=== PATIENT | male | born 1960 | race Two or more races ===

== ENCOUNTER 2020-05-19 08:06 | Outpatient (REF) | payer OTHER, SELFPAY ==
[2020-05-19 08:43] LABS: MANUAL DIFF FLAG NO
[2020-05-19 08:46] LABS: Basophils Percent Auto 0.3 % (0-2); Eosinophils Absolute Auto 0.3 X10*3/uL (0.0-0.4); Eosinophils Percent Auto 2.9 % (0-4); Hematocrit 48.7 % (42-52); Hemoglobin 15.8 g/dl (14.0-18.0); Imm Gran Abs Auto 0.03 X10*3/uL (0.00-0.03); Imm Gran Pct Auto 0.3 % (0.0-0.4); Lymphocytes Absolute Auto 2.5 X10*3/uL (1.2-4.9); Lymphocytes Percent Auto 28.8 % (20-40); Mean Corpuscular HGB Conc 32.4 g/dl (31.0-36.0); Mean Corpuscular Hemoglobin 26.4 pg (27.0-33.0); Mean Corpuscular Volume 81.3 fL (80-98); Mean Platelet Volume 12.1 fL (9.4-12.4); Monocytes Absolute Auto 0.6 X10*3/uL (0.1-1.2); Monocytes Percent Auto 7.2 % (2-11); Neutrophils Absolute Auto 5.2 X10*3/uL (2.0-8.3); Neutrophils Percent Auto 60.5 % (45-73); Platelet Count 218 X10*3/uL (160-400); Red Blood Count 5.99 X10*6/uL (4.60-5.80); Red Cell Distribution Width 13.8 % (11.0-16.0); White Blood Count 8.7 X10*3/uL (4.8-10.8)
[2020-05-19 09:13] LABS: Alanine Aminotransferase 28 U/L (0-40); Albumin Level 4.2 g/dL (3.5-5.0); Alkaline Phosphatase 104 U/L (39-117); Anion Gap 12 (12-20); Aspartate Amino Transferase 15 U/L (5-37); Bilirubin Total 1.7 mg/dL (0.0-1.0); Blood Urea Nitrogen 13 mg/dL (9-16); Calcium 9.2 mg/dL (8.4-10.2); Carbon Dioxide 29 mmol/L (22-29); Chloride 101 mmol/L (96-108); Cholesterol 298 mg/dL; Estimated Glomerular Filt Rate > 60; Glucose Fasting 146 mg/dL (60-99); HDL Cholesterol 32 mg/dL; LDL Cholesterol Calculated 234 mg/dl; Sodium 138 mmol/L (135-145); Total Protein 7.1 g/dL (6.5-8.0); Triglycerides 164 mg/dL
[2020-05-19 09:32] LABS: Creatinine Urine 123.35 mg/dL
== END 2020-05-19 08:07 | disposition home or self-care (01) ==
LOC: HO.LAB 08:06
PROVIDERS: PCP Internal Medicine; Visit Provider Internal Medicine
DX: E78.00 Pure hypercholesterolemia, unspecified (principal); R80.9 Proteinuria, unspecified; E11.69 Type 2 diabetes mellitus with other specified complication; K21.9 Gastro-esophageal reflux disease without esophagitis
CPT/HCPCS: 36415; 80053; 80061; 82043; 85025

== ENCOUNTER → 2020-07-26 09:02 | Outpatient (BNVA) | payer OTHER, SELFPAY | PROVIDERS: PCP Internal Medicine; Visit Provider Physician Assistant | DX: Z13.89 Encounter for screening for other disorder (principal) | CPT/HCPCS: Q3014 ==

== ENCOUNTER 2020-09-16 08:33 | Outpatient (REF) | payer OTHER, SELFPAY ==
[2020-09-16 10:10] LABS: Alanine Aminotransferase 26 U/L (0-40); Albumin Level 4.2 g/dL (3.5-5.0); Alkaline Phosphatase 95 U/L (39-117); Anion Gap 11 (12-20); Aspartate Amino Transferase 14 U/L (5-37); Bilirubin Total 1.4 mg/dL (0.0-1.0); Blood Urea Nitrogen 12 mg/dL (9-16); Calcium 9.3 mg/dL (8.4-10.2); Carbon Dioxide 28 mmol/L (22-29); Chloride 103 mmol/L (96-108); Cholesterol 288 mg/dL; Estimated Glomerular Filt Rate > 60; Glucose Fasting 162 mg/dL (60-99); HDL Cholesterol 31 mg/dL; LDL Cholesterol Calculated 229 mg/dl; Lactate Dehydrogenase 134 U/L (118-273); Potassium 4.1 mmol/L (3.3-5.1); Sodium 138 mmol/L (135-145); Total Protein 6.9 g/dL (6.5-8.0); Triglycerides 144 mg/dL
[2020-09-16 10:15] LABS: Microalbum/Creatinine Ratio Ur 24.6 ug/mg cr
== END 2020-09-16 08:34 | disposition home or self-care (01) ==
LOC: HO.LAB 08:33
PROVIDERS: PCP Internal Medicine; Visit Provider Internal Medicine
DX: E11.29 Type 2 diabetes mellitus with other diabetic kidney complication (principal); R80.9 Proteinuria, unspecified; E80.6 Other disorders of bilirubin metabolism; E78.2 Mixed hyperlipidemia
CPT/HCPCS: 36415; 80053; 80061; 82043; 83615

== ENCOUNTER → 2020-09-20 07:35 | Outpatient (BNVA) | payer OTHER, SELFPAY | PROVIDERS: PCP Internal Medicine; Visit Provider Physician Assistant | DX: K76.0 Fatty (change of) liver, not elsewhere classified (principal) | CPT/HCPCS: 99212 ==

== ENCOUNTER 2021-01-16 09:16 | Outpatient (REF) | payer OTHER, SELFPAY ==
[2021-01-16 10:49] LABS: Alanine Aminotransferase 25 U/L (0-40); Albumin Level 4.3 g/dL (3.5-5.0); Alkaline Phosphatase 99 U/L (39-117); Anion Gap 11 (12-20); Aspartate Amino Transferase 14 U/L (5-37); Bilirubin Total 0.9 mg/dL (0.0-1.0); Blood Urea Nitrogen 10 mg/dL (9-16); Calcium 9.7 mg/dL (8.4-10.2); Carbon Dioxide 30 mmol/L (22-29); Chloride 102 mmol/L (96-108); Cholesterol 282 mg/dL; Estimated Glomerular Filt Rate > 60; Glucose Fasting 163 mg/dL (60-99); HDL Cholesterol 32 mg/dL; LDL Cholesterol Calculated 224 mg/dl; Potassium 4.5 mmol/L (3.3-5.1); Sodium 138 mmol/L (135-145); Total Protein 7.3 g/dL (6.5-8.0); Triglycerides 134 mg/dL
[2021-01-16 10:50] LABS: Creatinine Urine 15.36 mg/dL
[2021-01-16 11:10] LABS: HBsAGNum1 0.19 S/CO (0.00-0.99); Hepatitis B Core Antibody Nonreactive (Nonreactive); Hepatitis B Surface Antigen Negative (Negative); ~HepC Num1 0.17 S/CO (0.00-0.79); ~Hepatitis C Antibody Nonreactive (Nonreactive)
[2021-01-16 11:21] LABS: ~Hepatitis B Surface Antibody NONREACTIVE (Nonreactive)
[2021-01-17 09:31] LABS: Hepatitis A Antibody IgM 0.15 Index (0-0.79); ~Hepatitis A Antibody IgM Nonreactive (Nonreactive)
== END 2021-01-16 09:17 | disposition home or self-care (01) ==
LOC: HO.LAB 09:16
PROVIDERS: Physician Assistant; PCP Internal Medicine; Visit Provider Internal Medicine
DX: Z01.84 Encounter for antibody response examination (principal); Z11.59 Encounter for screening for other viral diseases; R79.89 Other specified abnormal findings of blood chemistry; E78.2 Mixed hyperlipidemia; E78.5 Hyperlipidemia, unspecified; E11.29 Type 2 diabetes mellitus with other diabetic kidney complication; R80.9 Proteinuria, unspecified
CPT/HCPCS: 36415; 80053; 80061; 82043; 86704; 86706; 86709; 86803; 87340

== ENCOUNTER 2021-02-17 17:55 | Emergency (ER) | payer OTHER, SELFPAY ==
--- NOTE | 2021-02-17 | ECG_ITS ---
Test Reason : CHEST PAIN Blood Pressure : / mmHG Vent. Rate : 053 BPM Atrial Rate : 053 BPM P-R Int : 148 ms QRS Dur : 088 ms QT Int : 406 ms P-R-T Axes : 053 -41 -14 degrees QTc Int : 380 ms Sinus bradycardia Left axis deviation Abnormal ECG When compared with ECG of 09-APR-2019 13:18, No significant change was found Referred By: Generic ED Physician Electronically Signed By:ROSALIND BRANNON
--- NOTE | ~2021-02-17 | XR_ITS ---
EXAMINATION: XR CHEST CLINICAL INFORMATION: Chest pain COMPARISON: None TECHNIQUE: Frontal view of the chest was obtained. FINDINGS: No significant abnormality is noted involving the heart, lungs, mediastinum, bony thorax or soft tissues. XR/XR chest 1V IMPRESSION: Unremarkable examination.
[2021-02-17 18:00] VITALS: BP 200/108; PULSE 58; RESP 16; TEMP 36.7; O2SAT 98; BMI 28.3
[2021-02-17 19:08] LABS: MANUAL DIFF FLAG NO
[2021-02-17 19:10] LABS: Basophils Percent Auto 0.2 % (0-2); Eosinophils Absolute Auto 0.2 X10*3/uL (0.0-0.4); Hematocrit 46.8 % (42-52); Hemoglobin 15.1 g/dl (14.0-18.0); Imm Gran Abs Auto 0.02 X10*3/uL (0.00-0.03); Imm Gran Pct Auto 0.2 % (0.0-0.4); Lymphocytes Absolute Auto 2.5 X10*3/uL (1.2-4.9); Lymphocytes Percent Auto 25.1 % (20-40); Mean Corpuscular HGB Conc 32.3 g/dl (31.0-36.0); Mean Corpuscular Hemoglobin 26.2 pg (27.0-33.0); Mean Corpuscular Volume 81.1 fL (80-98); Mean Platelet Volume 11.9 fL (9.4-12.4); Monocytes Absolute Auto 0.7 X10*3/uL (0.1-1.2); Monocytes Percent Auto 7.3 % (2-11); Neutrophils Absolute Auto 6.4 X10*3/uL (2.0-8.3); Neutrophils Percent Auto 65.2 % (45-73); Platelet Count 198 X10*3/uL (160-400); Red Blood Count 5.77 X10*6/uL (4.60-5.80); Red Cell Distribution Width 14.6 % (11.0-16.0); White Blood Count 9.8 X10*3/uL (4.8-10.8)
--- NOTE | 2021-02-17 19:37 | ED.GENADULT ---
HPI - General Adult General Chief complaint: Dizziness Stated complaint: HBP Time Seen by Provider: 02/17/21 19:26 Source: patient Mode of arrival: ambulatory Limitations: no limitations History of Present Illness HPI narrative: 60-year-old male who presents emergency department for evaluation of dizziness and chest pain. Patient states that he has a history of vertigo. The patient states that he was sitting at around 5:30 p.m. when he had a sudden onset of dizziness. He states that the room was spinning any had blurred vision. He states this is similar to his vertigo he has taken meclizine in the past but did not take any this evening. He states he then developed pain in his chest. He points to his mid sternal area when asked to localize the pain. He describes the pain as a pressure-like pain. The pain lasts approximately 1 hour. Patient states he has had similar pain in the past and states that he gets it several times a month. He denied associated nausea, vomiting, diaphoresis lightheadedness. He denied radiation of the pain to his neck, arms or back. Related Data Home Medications Medication Instructions Recorded Confirmed aspirin 81 mg chewable tablet 1 tab PO DAILY 05/22/20 01/18/21 losartan 25 mg tablet 25 mg PO DAILY 05/22/20 01/18/21 pantoprazole 40 mg tablet,delayed 40 mg PO DAILY 05/22/20 01/18/21 release Previous Rx's Medication Instructions Recorded atorvastatin 80 mg tablet 80 mg PO DAILY 90 Days #90 tab 08/17/20 metformin 1,000 mg tablet 1,000 mg PO BID 90 Days #180 tab 08/17/20 amlodipine 10 mg tablet 10 mg PO DAILY 90 Days #90 tab 09/01/20 ezetimibe 10 mg tablet 10 mg PO DAILY 90 Days #90 tab 09/18/20 evolocumab 140 mg/mL subcutaneous 140 mg SUBCUT Q2W 30 Days #3 ml 01/18/21 pen injector (Ruby Vang) meclizine 12.5 mg tablet 12.5 mg PO TID PRN 30 Days #90 tab 01/18/21 pioglitazone 30 mg tablet 30 mg PO DAILY 90 Days #90 tab 01/18/21 meclizine 25 mg tablet (Dramamine 25 mg PO TID PRN #20 tab 02/17/21 Less Drowsy) Allergies Allergy/AdvReac Type Severity Reaction Status Date / Time vitamin c lotion Allergy Intermediate rash Uncoded 02/17/21 18:00 Review of Systems Review of Systems: Yes all other systems are reviewed and are negative [facility] Past Medical History Medical History BPPV (benign paroxysmal positional vertigo) Diabetes mellitus Essential hypertension Familial hypercholesterolemia GERD (gastroesophageal reflux disease) Hyperbilirubinemia NAFLD (nonalcoholic fatty liver disease) Surgical History History of cardiac catheterization Family History Family History Father No problems noted. 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 Current occupational exposures/hazards: No Physical Exam Vital Signs: Vital Signs: Last Vital Signs Temp 98.3 F 02/17/21 20:00 Pulse 55 02/17/21 20:00 Resp 18 02/17/21 20:00 BP 192/115 H 02/17/21 20:00 Pulse Ox 97 02/17/21 20:00 Body Mass Index 28.3 Const: General: cooperative and no acute distress Orientation/consciousness: oriented to person and oriented to place Limitations: no limitations HENMT: Head: Yes normal to inspection, Yes normocephalic and Yes atraumatic Ears: external ears normal General nose exam: Normal external nose present Face and sinus: Yes normal facial exam Mouth: Normal oral and palatal mucosa present Throat: Yes posterior oropharynx normal Eyes: General: appearance normal, both eyes and all related structures Pupils: Equal, round and reactive pupils present Neck: Neck: Yes normal visual inspection, Yes no lymphadenopathy, Yes trachea midline and Yes supple Chest: Chest palpation & inspection: normal inspection of the chest and normal palpation of entire chest wall Resp: Effort & Inspection: normal respiratory effort and able to speak in complete sentences Auscultation: clear to auscultation bilaterally Cardio: Rate: regular rate Rhythm: regular rhythm Heart sounds: S1 normal heart sound present, S2 normal heart sound present and no murmurs GI: Inspection: Yes normal to inspection Palpation (GI): Soft to palpation, nontender and no guarding Auscultation: normal bowel sounds : General: Yes no CVA tenderness Back/Spine/Pelvis: Back: no CVA tenderness Skin: General skin exam: no rashes or lesions noted Neuro: General: oriented to person and oriented to place Cranial nerves: Yes CN's II-XII intact bilaterally and Yes Equal, round and reactive pupils present Cognition (Neuro): normal cognition Motor exam (neuro): 5/5 motor strength present throughout Extrem: General: Yes normal to inspection Psych: Appearance: grossly normal Speech and movement: Normal speech and movement present Affect: normal affect Attitude: cooperative Thought process: Normal thought process present Thought content: Normal thought content present Course Course Course Narrative: 60-year-old male who presents emergency department for evaluation of vertigo-like dizziness and substernal chest pressure. The patient has had both symptoms in the past. The patient's chest pressure lasted 1 hour. The patient's physical examination was unremarkable. The patient's 12 lead EKG was unremarkable with no evidence of ST segment elevation or depression. Laboratory evaluation is pending. 2038: The patient's high sensitivity troponin was detectable but not elevated. Given his presentation, I do not think that he needs a repeat 3 hour high sensitivity troponin. The patient's presentation is consistent with vertigo. He was treated with meclizine 25 mg orally. The patient was advised to take meclizine 25 mg every 6 hours as needed for dizziness. Patient was discharged home. The patient was given verbal and printed instructions prior to discharge. The patient was advised to follow-up with his PCP in 2 days and to return to the emergency department if his symptoms get worse or if he develops any new symptoms that are concerning to him. Medical Decision Making Lab Data Result diagrams: 02/17/21 19:03 02/17/21 19:47 Labs: Lab Results 02/17/21 02/17/21 02/17/21 Range/Units 19:03 19:03 19:47 WBC 9.8 (4.8-10.8) X10*3/uL RBC 5.77 (4.60-5.80) X10*6/uL Hgb 15.1 (14.0-18.0) g/dl Hct 46.8 (42-52) % MCV 81.1 (80-98) fL MCH 26.2 L (27.0-33.0) pg MCHC 32.3 (31.0-36.0) g/dl RDW 14.6 (11.0-16.0) % Plt Count 198 (160-400) X10*3/uL MPV 11.9 (9.4-12.4) fL Immature Gran % (Auto) 0.2 (0.0-0.4) % Neut % (Auto) 65.2 (45-73) % Lymph % (Auto) 25.1 (20-40) % [place] % (Auto) 7.3 (2-11) % Eos % (Auto) 2.0 (0-4) % Baso % (Auto) 0.2 (0-2) % Lymph # (Auto) 2.5 (1.2-4.9) X10*3/uL [place] # (Auto) 0.7 (0.1-1.2) X10*3/uL Eos # (Auto) 0.2 (0.0-0.4) X10*3/uL Baso # (Auto) 0.0 (0.0-0.2) X10*3/uL Abs Immat Gran (auto) 0.02 (0.00-0.03) X10*3/uL Absolute Neuts (auto) 6.4 (2.0-8.3) X10*3/uL Absolute Nucleated RBC 0.000 (0.0-0.012) X10*3/uL Nucleated RBC % (auto) 0.0 (0.0-0.2) /100WBC Sodium 138 (135-145) mmol/L Potassium 3.8 (3.3-5.1) mmol/L Chloride 102 (96-108) mmol/L Carbon Dioxide 29 (22-29) mmol/L Anion Gap 11 L (12-20) BUN 14 (9-16) mg/dL Creatinine 1.01 (0.5-1.4) mg/dL Estim Creat Clear Calc 72.6 Estimated GFR > 60 Random Glucose 198 H (60-115) mg/dL Calcium 9.6 (8.4-10.2) mg/dL Troponin I High Sens 4.3 (<3.5-35.0) ng/L ECG Data Attestation: I personally reviewed and interpreted this ECG as follows: Interpretation: 1808: Sinus bradycardia with a rate of 53, normal MS interval, QRS duration and QTC interval, inverted T-wave in lead 3, no ST segment elevation, no ST segment depression, no PACs, no PVCs, except for the bradycardia, this is a normal EKG. Discharge Plan Discharge Clinical Impression: Vertigo Chest pain Qualifiers: Chest pain type: unspecified Qualified Code(s): R07.9 - Chest pain, unspecified Patient Disposition: Home, Self-Care Instructions: Vertigo (ED), Chest Wall Pain (ED) Additional Instructions: Your laboratory evaluation was unremarkable. Your symptoms are consistent with vertigo and I think that your chest pain is consistent with muscle pain. Take meclizine 25 mg pills, 1 pill every 6 hours as needed for dizziness or nausea. Follow-up with your doctor in 2 days. Please return to the emergency department if your symptoms get worse or if you develop any symptoms that are concerning to you. Prescriptions: New meclizine [Dramamine Less Drowsy] 25 mg tablet 25 mg PO TID PRN (Reason: dizziness) Qty: 20 RF: 0 No Action metformin 1,000 mg tablet 1,000 mg PO BID 90 Days Qty: 180 RF: 1 atorvastatin 80 mg tablet 80 mg PO DAILY 90 Days Qty: 90 RF: 3 amlodipine 10 mg tablet 10 mg PO DAILY 90 Days Qty: 90 RF: 3 Repatha SureClick 140 mg/mL pen injector 140 mg subcut Q2W 30 Days Qty: 3 RF: 6 ezetimibe 10 mg tablet 10 mg PO DAILY 90 Days Qty: 90 RF: 3 pioglitazone 30 mg tablet 30 mg PO DAILY 90 Days Qty: 90 RF: 3 meclizine 12.5 mg tablet 12.5 mg PO TID PRN (Reason: dizziness) 30 Days Qty: 90 RF: 1 pantoprazole 40 mg tablet,delayed release (DR/EC) 40 mg PO DAILY RF: 0 aspirin 81 mg tablet,chewable 1 tab PO DAILY RF: 0 losartan 25 mg tablet 25 mg PO DAILY RF: 0
[2021-02-17 19:38] LABS: Troponin-I High Sensitivity 4.3 ng/L (<3.5-35.0)
--- NOTE | 2021-02-17 19:39 | PC.NURSE ---
iv inserted, labs drawn, vehicle monitor technician intact, will continue to monitor.
[2021-02-17 20:00] VITALS: BP 192/115; PULSE 55; RESP 18; TEMP 36.8; O2SAT 97
--- NOTE | 2021-02-17 20:01 | PC.NURSE ---
patient a&ox3, pt hypertensive, currently denying chest pain and denying dizziness at this time, tower erector intact will continue to monitor.
[2021-02-17 20:20] LABS: Anion Gap 11 (12-20); Blood Urea Nitrogen 14 mg/dL (9-16); Calcium 9.6 mg/dL (8.4-10.2); Carbon Dioxide 29 mmol/L (22-29); Chloride 102 mmol/L (96-108); Creatinine Clr Calc Pharmacy 72.6; Estimated Glomerular Filt Rate > 60; Glucose Random 198 mg/dL (60-115); Potassium 3.8 mmol/L (3.3-5.1); Sodium 138 mmol/L (135-145)
[2021-02-17 21:39] VITALS: BP 169/96; PULSE 51; RESP 18; O2SAT 97
[2021-02-17] MEDS: Meclizine HCl 25 MG TABLET PO (21:48)
== END 2021-02-17 21:47 | disposition home or self-care (01) ==
PROVIDERS: Emergency Provider Emergency Medicine Emergency Medical Services; PCP Internal Medicine
DX: R42 Dizziness and giddiness (principal); R07.9 Chest pain, unspecified; I10 Essential (primary) hypertension; E11.9 Type 2 diabetes mellitus without complications; E78.01 Familial hypercholesterolemia; Z79.02 Long term (current) use of antithrombotics/antiplatelets; Z79.82 Long term (current) use of aspirin; Z79.899 Other long term (current) drug therapy
CPT/HCPCS: 36415; 71045; 80048; 84484; 85025; 93005; 99284; 99285

== ENCOUNTER 2021-04-16 10:29 | Outpatient (REF) | payer OTHER, SELFPAY ==
--- NOTE | ~2021-04-16 | XR_ITS ---
EXAMINATION: XR KNEE, RIGHT CLINICAL INFORMATION: M25.561 - Pain in right knee COMPARISON: None TECHNIQUE: Four views of the right knee. FINDINGS: There is no fracture or dislocation or suprapatellar effusion. Hoffa's fat pad appears normal. There is no focal joint narrowing or erosive change or chondrocalcinosis. Mild spurring is present at quadriceps insertion patella. XR/XR knee RT 4V IMPRESSION: Spurring at quadriceps insertion patella. Otherwise unremarkable exam.
--- NOTE | ~2021-04-16 | XR_ITS ---
EXAMINATION: XR FOOT, RIGHT CLINICAL INFORMATION: M79.671 - Pain in right foot COMPARISON: None TECHNIQUE: AP, lateral, and oblique views of the right foot. FINDINGS: There is a subtle peripheral lucency at the lateral base great toe proximal phalanx. It is uncertain if this represents a fine linear cleft or cortical avulsion. Recommend correlation with patient's symptoms and clinical exam. The bony structures are otherwise intact. There is no other fracture or dislocation or destructive process. There are posterior and plantar calcaneal spurs. XR/XR foot RT min 3V IMPRESSION: 1. Subtle cleft versus cortical avulsion lateral base great toe proximal phalanx. Recommend correlation with patient's symptoms and clinical exam. 2. Remainder of bony structures intact. 3. Posterior and plantar calcaneal spurs.
== END 2021-04-16 10:30 | disposition home or self-care (01) ==
LOC: HO.HMGCX 10:29
PROVIDERS: PCP Internal Medicine; Visit Provider Physician Assistant
DX: M25.561 Pain in right knee (principal); M79.671 Pain in right foot
CPT/HCPCS: 73564; 73630

== ENCOUNTER 2021-05-26 08:18 | Outpatient (REF) | payer OTHER, SELFPAY ==
[2021-05-26 10:05] LABS: Alanine Aminotransferase 18 U/L (0-40); Albumin Level 4.2 g/dL (3.5-5.0); Alkaline Phosphatase 89 U/L (39-117); Anion Gap 10 (12-20); Aspartate Amino Transferase 13 U/L (5-37); Bilirubin Total 1.5 mg/dL (0.0-1.0); Blood Urea Nitrogen 12 mg/dL (9-16); Carbon Dioxide 31 mmol/L (22-29); Chloride 103 mmol/L (96-108); Cholesterol 269 mg/dL; Estimated Glomerular Filt Rate > 60; Glucose Fasting 127 mg/dL (60-99); HDL Cholesterol 30 mg/dL; LDL Cholesterol Calculated 220 mg/dl; Potassium 4.2 mmol/L (3.3-5.1); Sodium 140 mmol/L (135-145); Total Protein 7.1 g/dL (6.5-8.0); Triglycerides 95 mg/dL
[2021-05-26 12:08] LABS: Creatinine Urine 229.01 mg/dL; Microalbum/Creatinine Ratio Ur 29.2 ug/mg cr
[2021-05-30 12:26] LABS: Vitamin D 25-OH, D2 <4 ng/mL; Vitamin D 25-OH, D3 21 ng/mL; Vitamin D 25-OH, Total 21 ng/mL (30-100)
[2021-05-30 13:01] LABS: Apolipoprotein B 142 mg/dL (<90)
== END 2021-05-26 08:19 | disposition home or self-care (01) ==
LOC: HO.LAB 08:18
PROVIDERS: PCP Internal Medicine; Visit Provider Internal Medicine
DX: E11.29 Type 2 diabetes mellitus with other diabetic kidney complication (principal); R80.9 Proteinuria, unspecified; E78.2 Mixed hyperlipidemia; E78.5 Hyperlipidemia, unspecified; E55.9 Vitamin D deficiency, unspecified
CPT/HCPCS: 36415; 80053; 80061; 82043; 82172; 82306

== ENCOUNTER 2021-05-31 08:49 | Outpatient (REF) | payer OTHER, SELFPAY ==
--- NOTE | 2021-05-31 08:52 | EMG_ITS ---
Right tibial and peroneal motor studies were performed. Right superficial peroneal and sural sensory studies were performed and paraspinal muscles were tested. Due to technical difficulties, H-reflex could not be obtained. 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 MD SIS Mazariegos/DOMINIK / [id number]
== END 2021-05-31 08:50 | disposition home or self-care (01) ==
LOC: HO.NEURO 08:49
PROVIDERS: PCP Internal Medicine; Visit Provider Physician Assistant
DX: G57.30 Lesion of lateral popliteal nerve, unspecified lower limb (principal); M21.371 Foot drop, right foot; E11.29 Type 2 diabetes mellitus with other diabetic kidney complication; R80.9 Proteinuria, unspecified; I10 Essential (primary) hypertension; E78.5 Hyperlipidemia, unspecified; E55.9 Vitamin D deficiency, unspecified; Z23 Encounter for immunization
CPT/HCPCS: 95886; 95908

== ENCOUNTER → 2021-07-09 08:33 | Outpatient (REF) | payer OTHER, SELFPAY | LOC: HO.SL 08:33 | PROVIDERS: PCP Internal Medicine; Visit Provider Internal Medicine | DX: R40.0 Somnolence (principal) | CPT/HCPCS: 95806 ==

== ENCOUNTER 2021-07-18 15:02 | Emergency (ER) | payer OTHER, SELFPAY ==
--- NOTE | ~2021-07-18 | XR_ITS ---
EXAMINATION: XR CHEST CLINICAL INFORMATION: Chest pain COMPARISON: February 17, 2021 TECHNIQUE: AP portable view of the chest was obtained. FINDINGS: No significant abnormality is noted involving the heart, lungs, mediastinum, bony thorax or soft tissues. XR/XR chest 1V IMPRESSION: No acute disease.
[2021-07-18 16:12] VITALS: BP 158/91; PULSE 62; RESP 18; TEMP 36.6; O2SAT 99; BMI 29.2
--- NOTE | 2021-07-18 16:16 | ECG_ITS ---
Test Reason : CHEST PAIN Blood Pressure : / mmHG Vent. Rate : 059 BPM Atrial Rate : 059 BPM P-R Int : 138 ms QRS Dur : 086 ms QT Int : 412 ms P-R-T Axes : 057 -59 012 degrees QTc Int : 407 ms Sinus bradycardia Left axis deviation Pulmonary disease pattern Abnormal ECG When compared with ECG of 17-FEB-2021 18:08, No significant change was found Referred By: Generic ED Physician Electronically Signed By:JP NORTON MD
[2021-07-18 16:31] LABS: Basophils Percent Auto 0.2 % (0-2); Eosinophils Absolute Auto 0.2 X10*3/uL (0.0-0.4); Eosinophils Percent Auto 1.9 % (0-4); Hematocrit 51.5 % (42.0-52.0); Hemoglobin 16.2 g/dl (14.0-18.0); Imm Gran Abs Auto 0.03 X10*3/uL (0.00-0.03); Imm Gran Pct Auto 0.4 % (0.0-0.4); Lymphocytes Percent Auto 22.8 % (20-40); MANUAL DIFF FLAG NO; Mean Corpuscular HGB Conc 31.5 g/dl (31.0-36.0); Mean Corpuscular Hemoglobin 25.8 pg (27.0-33.0); Mean Corpuscular Volume 81.9 fL (80.0-98.0); Mean Platelet Volume 11.8 fL (9.4-12.4); Monocytes Absolute Auto 0.7 X10*3/uL (0.1-1.2); Monocytes Percent Auto 7.7 % (2-11); Neutrophils Absolute Auto 5.7 x10*3/uL (2.0-8.3); Platelet Count 236 X10*3/uL (160-400); Red Blood Count 6.29 X10*6/uL (4.60-5.80); Red Cell Distribution Width 14.3 % (11.0-16.0); White Blood Count 8.6 X10*3/uL (4.8-10.8)
[2021-07-18 16:45] LABS: Anion Gap 15 (12-20); Blood Urea Nitrogen 8 mg/dL (9-16); Calcium 10.4 mg/dL (8.4-10.2); Carbon Dioxide 27 mmol/L (22-29); Chloride 102 mmol/L (96-108); Estimated Glomerular Filt Rate > 60; Glucose Random 122 mg/dL (60-115); Potassium 4.4 mmol/L (3.3-5.1); Sodium 140 mmol/L (135-145)
[2021-07-18 16:47] LABS: COVID-19 Test Negative (Negative)
[2021-07-18 16:53] LABS: Troponin-I High Sensitivity < 3.5 ng/L (<3.5-35.0)
[2021-07-18 20:00] VITALS: BP 158/91; PULSE 62; TEMP 36.6; O2SAT 99
--- NOTE | 2021-07-18 20:04 | ED_ITS ---
HPI - Chest Pain General Chief Complaint: Chest Pain Stated Complaint: high blood pressure Time Seen by Provider: 07/18/21 19:41 Source: patient and old records reviewed History of Present Illness HPI narrative: Patient is complaining of dizziness and chest pain and hypertension. Patient states he has been having these symptoms intermittently for approximately 10 years. The chest pain usually comes when he gets the dizzy episodes. He describes the dizziness as feeling like the room is moving, it is worse with head movement, and he has been diagnosed with vertigo in the past. He typically takes meclizine when he feels this way in the dizziness improved. He has not seen a specialist for this however. He also complains of chest pain when he gets this. It is sharp in anterior. He has been worked up on numerous occasions for cardiac disease when he has had this pain, but the workups have been normal. He has not seen a farmworker machine however. He has a history of hypertension for which he takes amlodipine and losartan. He has been on the same dose for many years. He states he takes his blood pressure at home and typically the lowest it gets is 140/90. At times it is high as 170/100. He denies any focal weakness. No nausea or vomiting. No recent illnesses. No causative factors that he knows of Currently he has no chest pain. He has no dizziness unless he moves his head. Patient states he was seen at [facility] for the same complaints yesterday. Workup there was negative and he was discharged home to follow-up with his primary care physician. But when he called the office today and told him is symptoms they told him to come back to the emergency department. Related Data Home Medications Medication Instructions Recorded Confirmed aspirin 81 mg chewable tablet 1 tab PO DAILY 05/22/20 05/31/21 losartan 25 mg tablet 25 mg PO DAILY 05/22/20 05/31/21 pantoprazole 40 mg tablet,delayed 40 mg PO DAILY 05/22/20 05/31/21 release Previous Rx's Medication Instructions Recorded atorvastatin 80 mg tablet 80 mg PO DAILY 90 Days #90 tab 08/17/20 metformin 1,000 mg tablet 1,000 mg PO BID 90 Days #180 tab 08/17/20 amlodipine 10 mg tablet 10 mg PO DAILY 90 Days #90 tab 09/01/20 ezetimibe 10 mg tablet 10 mg PO DAILY 90 Days #90 tab 09/18/20 pioglitazone 30 mg tablet 30 mg PO DAILY 90 Days #90 tab 01/18/21 meclizine 25 mg tablet (Dramamine 25 mg PO TID PRN #20 tab 02/17/21 Less Drowsy) cholecalciferol (vitamin D3) 50 50 mcg PO DAILY 90 Days #90 cap 05/31/21 mcg (2,000 unit) capsule evolocumab 140 mg/mL subcutaneous 140 mg SUBCUT Q2W 30 Days #3 ml 05/31/21 pen injector (Repatha SureClick) amlodipine 10 mg tablet 20 mg PO DAILY #60 tab 07/18/21 Allergies Allergy/AdvReac Type Severity Reaction Status Date / Time vitamin c lotion Allergy Intermediate rash Uncoded 05/31/21 09:52 Review of Systems 2 Verdana 4l Constitutional: Verdana 4d Comments: Verdana 4d Verdana 4d Verdana 4d No fevers chills or malaise Verdana 4d Verdana 4l ENT: Verdana 4d Verdana 4d Comments: Verdana 4d Verdana 4d Tenderness which is worse when he has dizziness. He denies hearing loss however Verdana 4d Verdana 4l Cardiovascular: Verdana 4d Comments: Verdana 4d Verdana 4d Verdana 4d Chest pain as described. No palpitations Verdana 4d Verdana 4l Respiratory: Verdana 4d Verdana 4d Comments: Verdana 4d Verdana 4d No cough or dyspnea Verdana 4d Verdana 4l Gastrointestinal: Verdana 4d Comments: Verdana 4d Verdana 4d Verdana 4d No nausea vomiting or diarrhea Verdana 4d Verdana 4l Musculoskeletal: Verdana 4d Comments: Verdana 4d Verdana 4d Verdana 4d No calf pain or pedal edema Verdana 4d Verdana 4l Integumentary/Breasts: Verdana 4d Comments: Verdana 4d Verdana 4d Verdana 4d No rash Verdana 4d Verdana 4l Neurologic: Verdana 4d Verdana 4d Comments: Verdana 4d Verdana 4d No focal weakness Verdana 4d [facility] Past Medical History Medical History (Updated 07/18/21 @ 20:15 by Tony Walker MD) BPPV (benign paroxysmal positional vertigo) Daytime sleepiness Diabetes mellitus Essential hypertension Familial hypercholesterolemia GERD (gastroesophageal reflux disease) Hyperbilirubinemia Hypovitaminosis D Microalbuminuria due to type 2 diabetes mellitus NAFLD (nonalcoholic fatty liver disease) Surgical History History of cardiac catheterization Family History Family History Father No problems noted. 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 Extraocular muscles intact. Extinguishing nystagmus on right lateral gaze Neck: Other: Full range of motion Resp: Other: Clear and equal bilaterally without wheezes rales or rhonchi Cardio: Other: Regular rate and rhythm without murmurs rubs or gallops GI: Other: Soft nontender nondistended Skin: Other: Warm pink and dry without diaphoresis or rash Neuro: Other: Alert and oriented x3. Ambulates without difficulty. Strength is 5/5 in all 4 extremities [id number] is normal bilaterally Romberg is positive after approximately 5 seconds of having his eyes closed he still cannot focus he feels like he is moving. No overt staggering with Romberg test. Course Course Course Narrative: Chest pain Hypertensive emergency Acute coronary syndrome Dizziness Benign positional vertigo Meniere's disease No evidence for stroke 8:10 p.m.. EKG is normal sinus rhythm without ischemia or dysrhythmia Troponin is normal Remainder of lab work negative Chest x-ray negative MDM - Chest Pain Lab Data Result diagrams: 07/18/21 16:20 07/18/21 16:20 Labs: Lab Results 07/18/21 07/18/21 07/18/21 Range/Units 16:20 16:20 16:20 WBC 8.6 (4.8-10.8) X10*3/uL RBC 6.29 H (4.60-5.80) X10*6/uL Hgb 16.2 (14.0-18.0) g/dl Hct 51.5 (42.0-52.0) % MCV 81.9 (80.0-98.0) fL MCH 25.8 L (27.0-33.0) pg MCHC 31.5 (31.0-36.0) g/dl RDW 14.3 (11.0-16.0) % Plt Count 236 (160-400) X10*3/uL MPV 11.8 (9.4-12.4) fL Immature Gran % (Auto) 0.4 (0.0-0.4) % Neut % (Auto) 67.0 (45-73) % Lymph % (Auto) 22.8 (20-40) % [place] % (Auto) 7.7 (2-11) % Eos % (Auto) 1.9 (0-4) % Baso % (Auto) 0.2 (0-2) % Lymph # (Auto) 2.0 (1.2-4.9) X10*3/uL [place] # (Auto) 0.7 (0.1-1.2) X10*3/uL Eos # (Auto) 0.2 (0.0-0.4) X10*3/uL Baso # (Auto) 0.0 (0.0-0.2) X10*3/uL Abs Immat Gran (auto) 0.03 (0.00-0.03) X10*3/uL Absolute Neuts (auto) 5.7 (2.0-8.3) x10*3/uL Absolute Nucleated RBC 0.000 (0.0-0.012) X10*3/uL Nucleated RBC % (auto) 0.0 (0.0-0.2) /100WBC Sodium 140 (135-145) mmol/L Potassium 4.4 (3.3-5.1) mmol/L Chloride 102 (96-108) mmol/L Carbon Dioxide 27 (22-29) mmol/L Anion Gap 15 (12-20) BUN 8 L (9-16) mg/dL Creatinine 0.81 (0.5-1.4) mg/dL Estim Creat Clear Calc 92.0 Estimated GFR > 60 Random Glucose 122 H D (60-115) mg/dL Calcium 10.4 H (8.4-10.2) mg/dL Troponin I High Sens < 3.5 (<3.5-35.0) ng/L COVID-19 (DICK) (Negative) COVID-19 Clin Com 07/18/21 Range/Units 16:20 WBC (4.8-10.8) X10*3/uL RBC (4.60-5.80) X10*6/uL Hgb (14.0-18.0) g/dl Hct (42.0-52.0) % MCV (80.0-98.0) fL MCH (27.0-33.0) pg MCHC (31.0-36.0) g/dl RDW (11.0-16.0) % Plt Count (160-400) X10*3/uL MPV (9.4-12.4) fL Immature Gran % (Auto) (0.0-0.4) % Neut % (Auto) (45-73) % Lymph % (Auto) (20-40) % [place] % (Auto) (2-11) % Eos % (Auto) (0-4) % Baso % (Auto) (0-2) % Lymph # (Auto) (1.2-4.9) X10*3/uL [place] # (Auto) (0.1-1.2) X10*3/uL Eos # (Auto) (0.0-0.4) X10*3/uL Baso # (Auto) (0.0-0.2) X10*3/uL Abs Immat Gran (auto) (0.00-0.03) X10*3/uL Absolute Neuts (auto) (2.0-8.3) x10*3/uL Absolute Nucleated RBC (0.0-0.012) X10*3/uL Nucleated RBC % (auto) (0.0-0.2) /100WBC Sodium (135-145) mmol/L Potassium (3.3-5.1) mmol/L Chloride (96-108) mmol/L Carbon Dioxide (22-29) mmol/L Anion Gap (12-20) BUN (9-16) mg/dL Creatinine (0.5-1.4) mg/dL Estim Creat Clear Calc Estimated GFR Random Glucose (60-115) mg/dL Calcium (8.4-10.2) mg/dL Troponin I High Sens (<3.5-35.0) ng/L COVID-19 (DICK) Negative (Negative) COVID-19 Clin Com See Note Discharge Plan Discharge Clinical Impression: Atypical chest pain, Benign paroxysmal positional vertigo, Hypertension Patient Disposition: Home, Self-Care Instructions: Chronic Hypertension (DC), Benign Paroxysmal Positional Vertigo (ED), Noncardiac Chest Pain (ED) Additional Instructions: Continue to take meclizine for dizziness as needed. I am going to write youprescription for amlodipine, 20 mg tablets. Take this instead of your 10 mg tablets. Be sure to check your blood pressure at least twice daily. Record all of the results and bring them to your PCP. Prescriptions: New amlodipine 10 mg tablet 20 mg PO DAILY Qty: 60 0RF No Action metformin 1,000 mg tablet 1,000 mg PO BID 90 Days Qty: 180 1RF atorvastatin 80 mg tablet 80 mg PO DAILY 90 Days Qty: 90 3RF amlodipine 10 mg tablet 10 mg PO DAILY 90 Days Qty: 90 3RF meclizine [Dramamine Less Drowsy] 25 mg tablet 25 mg PO TID PRN (Reason: dizziness) Qty: 20 0RF ezetimibe 10 mg tablet 10 mg PO DAILY 90 Days Qty: 90 3RF pioglitazone 30 mg tablet 30 mg PO DAILY 90 Days Qty: 90 3RF pantoprazole 40 mg tablet,delayed release (DR/EC) 40 mg PO DAILY 0RF aspirin 81 mg tablet,chewable 1 tab PO DAILY 0RF losartan 25 mg tablet 25 mg PO DAILY 0RF cholecalciferol (vitamin D3) 50 mcg (2,000 unit) capsule 50 mcg PO DAILY 90 Days Qty: 90 3RF Repatha SureClick 140 mg/mL pen injector 140 mg subcut Q2W 30 Days Qty: 3 6RF Referrals: Deven Guzman MD [Physician] - 2 days
== END 2021-07-18 20:40 | disposition home or self-care (01) ==
LOC: HO.ED 20:39
PROVIDERS: Emergency Provider Emergency Medicine; PCP Internal Medicine
DX: R07.89 Other chest pain (principal); H81.10 Benign paroxysmal vertigo, unspecified ear; I10 Essential (primary) hypertension; Z20.822 Contact with and (suspected) exposure to COVID-19; E11.9 Type 2 diabetes mellitus without complications; Z79.82 Long term (current) use of aspirin; Z79.899 Other long term (current) drug therapy; Z79.02 Long term (current) use of antithrombotics/antiplatelets
CPT/HCPCS: 71045; 80048; 84484; 85025; 87635; 93005; 99283; 99284

== ENCOUNTER → 2021-10-18 12:10 | Outpatient (BNVA) | payer OTHER, SELFPAY | PROVIDERS: PCP Internal Medicine; Referring Provider Internal Medicine; Visit Provider Internal Medicine | DX: I10 Essential (primary) hypertension (principal); E78.5 Hyperlipidemia, unspecified; Z79.899 Other long term (current) drug therapy | CPT/HCPCS: 99202 ==

== ENCOUNTER 2021-10-24 08:56 | Outpatient (REF) | payer OTHER, SELFPAY ==
[2021-10-24 10:02] LABS: Alanine Aminotransferase 19 U/L (0-40); Albumin Level 4.1 g/dL (3.5-5.0); Alkaline Phosphatase 92 U/L (39-117); Anion Gap 8 (12-20); Aspartate Amino Transferase 14 U/L (5-37); Bilirubin Total 2.5 mg/dL (0.0-1.0); Blood Urea Nitrogen 10 mg/dL (9-16); Carbon Dioxide 32 mmol/L (22-29); Chloride 103 mmol/L (96-108); Cholesterol 278 mg/dL; Estimated Glomerular Filt Rate > 60; Glucose Fasting 122 mg/dL (60-99); HDL Cholesterol 33 mg/dL; LDL Cholesterol Calculated 229 mg/dl; Potassium 4.4 mmol/L (3.3-5.1); Sodium 139 mmol/L (135-145); Total Protein 7.1 g/dL (6.5-8.0); Triglycerides 80 mg/dL
[2021-10-24 10:22] LABS: Creatinine Urine 57.07 mg/dL
[2021-10-29 14:52] LABS: Vitamin D 25-OH, D2 <4 ng/mL; Vitamin D 25-OH, D3 28 ng/mL; Vitamin D 25-OH, Total 28 ng/mL (30-100)
== END 2021-10-24 08:57 | disposition home or self-care (01) ==
LOC: HO.LAB 08:56
PROVIDERS: PCP Internal Medicine; Visit Provider Internal Medicine
DX: E55.9 Vitamin D deficiency, unspecified (principal); E11.9 Type 2 diabetes mellitus without complications; E78.5 Hyperlipidemia, unspecified; I10 Essential (primary) hypertension
CPT/HCPCS: 36415; 80053; 80061; 82043; 82306

== ENCOUNTER 2021-11-29 09:01 | Outpatient (REF) | payer OTHER, SELFPAY ==
[2021-11-29 10:12] LABS: Alanine Aminotransferase 24 U/L (0-40); Albumin Level 4.2 g/dL (3.5-5.0); Alkaline Phosphatase 95 U/L (39-117); Anion Gap 11 (12-20); Aspartate Amino Transferase 15 U/L (5-37); Bilirubin Total 1.7 mg/dL (0.0-1.0); Blood Urea Nitrogen 10 mg/dL (9-16); Calcium 9.5 mg/dL (8.4-10.2); Carbon Dioxide 29 mmol/L (22-29); Chloride 104 mmol/L (96-108); Cholesterol 272 mg/dL; Estimated Glomerular Filt Rate > 60; Glucose Fasting 119 mg/dL (60-99); HDL Cholesterol 35 mg/dL; LDL Cholesterol Calculated 219 mg/dl; Potassium 4.7 mmol/L (3.3-5.1); Sodium 139 mmol/L (135-145); Total Protein 7.2 g/dL (6.5-8.0); Triglycerides 92 mg/dL
[2021-11-29 11:59] LABS: Creatinine Urine 27.16 mg/dL; Microalbum/Creatinine Ratio Ur 25.7 ug/mg cr
[2021-12-04 13:36] LABS: Vitamin D 25-OH, D2 <4 ng/mL; Vitamin D 25-OH, D3 25 ng/mL; Vitamin D 25-OH, Total 25 ng/mL (30-100)
== END 2021-11-29 09:02 | disposition home or self-care (01) ==
LOC: HO.LAB 09:01
PROVIDERS: PCP Internal Medicine; Visit Provider Internal Medicine
DX: I10 Essential (primary) hypertension (principal); E55.9 Vitamin D deficiency, unspecified; E11.9 Type 2 diabetes mellitus without complications; E78.5 Hyperlipidemia, unspecified
CPT/HCPCS: 36415; 80053; 80061; 82043; 82306

== ENCOUNTER 2021-11-30 18:50 | Outpatient (REF) | payer OTHER, SELFPAY ==
--- NOTE | ~2021-11-30 | MR_ITS ---
MR BRAIN WITHOUT AND WITH CONTRAST CLINICAL INFORMATION: Sensorineural hearing loss. COMPARISON: None available. TECHNIQUE: Multiplanar, multisequence MRI of the brain was obtained before and after the intravenous administration of 7.5 mL of Gadavist. FINDINGS: The inner ear structures including the cochlea, vestibules, and semicircular canals exhibit preserved CSF signal intensity with no pathologic enhancement. The vestibular aqueducts are not enlarged. Cranial nerves VII and VIII complexes are normal in morphology. No enhancing CP angle/retrocochlear lesion. There is no pathologic intracranial enhancement. No parenchymal signal abnormality. No acute infarct on diffusion-weighted imaging. No intracranial hemorrhage on the gradient series. No hydrocephalus, extra-axial surface collection, or herniation. The midline intracranial structures are normal. Cerebellar tonsils are normally positioned. Craniocervical junction is normal. Osseous marrow signal intensity remains homogeneous. No significant soft tissue abnormality is appreciated. MR/MR head/brain wo/w con IMPRESSION: No retrocochlear pathology.
== END 2021-11-30 18:51 | disposition home or self-care (01) ==
LOC: HO.MRI 18:50
PROVIDERS: Visit Provider Otolaryngology
DX: H90.41 Sensorineural hearing loss, unilateral, right ear, with unrestricted hearing on the contralateral side (principal)
CPT/HCPCS: 70553; A9585

== ENCOUNTER → 2021-12-06 09:20 | Outpatient (REF) | payer OTHER, SELFPAY ==
--- NOTE | 2021-12-06 09:24 | CA_ITS ---
Transthoracic Echocardiogram Patient (Last, First, Middle): Walt Carrasco, Gender: Male Date of : 1960 Age: 61 Procedure Date: 12/06/2021 Procedure Type: Transthoracic Echocardiogram Location: OP Height: 162.56 cm Weight: 75.75 kg BSA: 1.81 m2 Heart Rate: bpm BP: 122 / 60 mmHg Retail Field Supervisor: JANY Lockwood MD: Guido Hansen MD Business Lawyer: Amos Carbajal MD Symptoms: I10 - Essential (primary) hypertension Study Quality: Good ECG Rhythm: Sinus Conclusions: - Essentially normal study Findings Left Ventricle Normal left ventricular size, thickness, and systolic function. The visually estimated ejection fraction is between 55-60%. Spectral Doppler is indicative of a normal filling pattern. Peak GLS is - 19.3%, within normal limits Right Ventricle Normal right ventricular cavity size and systolic function. Atria The left atrium is likely dilated. Interatrial shunt cannot be excluded. The right atrium is normal in size. Aortic Valve Normal aortic valve structure and function. There is no aortic valve stenosis. There is no aortic valve regurgitation. Mitral Valve Normal mitral valve structure and function. There is trace mitral valve regurgitation. There is no mitral valve stenosis. Pulmonic Valve The pulmonic valve is likely normal. There is no pulmonic valve regurgitation. Tricuspid Valve Normal tricuspid valve structure. There is trace tricuspid valve regurgitation. The right ventricular systolic pressure is normal. The right ventricular systolic pressure is 27 mmHg. Normal right atrial pressure. There is no evidence of pulmonary hypertension. Great Vessels All visible segments of the aorta are normal in size. The pulmonary artery was not well visualized. Venous The inferior vena cava is normal in size and collapses greater than 50% with inspiration. Pericardium/Pleural There is no evidence of pericardial effusion. Measurements 2D Linear Measurements IVSd: 1.11 0.6-0.9/0.6-1.0 cm LVIDd: 4.13 3.9-5.3/4.2-5.9 cm LVIDd Index: 2.28 2.4-3.2/2.2-3.1 cm/m2 LVIDs: 2.50 2.0-3.6 cm LVPWd: 1.11 0.7-1.1 cm LA Diam: 2.80 2.7-3.8/3.0-4.0 cm LAIDs Index: 1.55 1.5-2.3 cm/m2 LV Mass: 193.03 67-162/88-224 g LV Mass Index: 106.64 43-95/49-115 g/m2 LVOT Diam: 2.00 3.0+(-)1.3 cm 2D Systolic Function EF 4C: 55.40 >55% EF 2C: 60.40 >55% EF BiP: 58.70 >55% Mitral Valve MV Pk E: 0.90 MV PK A: 0.74 MV Decel Time: 266.00 E/A: 1.20 E'Lateral: 9.14 E'Medial: 7.18 E/E' Med: 12.50 E/E' Lat: 9.80 PHT: 78.00 MVA PHT: 2.82 Decel Conecuh: 3.38 Aortic Valve AoV Pk Shahid: 1.42 AoV Mn Shahid: 1.01 AoV VTI: 0.32 AoV Pk Grad: 8.00 Aov Mn Grad: 5.00 GINA Cont.VTI: 2.43 LVOT LVOT Pk Shahid: 0.97 LVOT Mn Shahid: 0.71 LVOT VTI: 0.25 LVOT Pk Grad: 4.00 LVOT Mn Grad: 2.00 LVOT Diam: 2.00 LVOT Area: 3.14 Diastolic Function MV Pk E: 0.90 MV Pk A: 0.74 E/A: 1.20 E'Medial: 7.18 E/E' Med: 12.50 E' Laterial: 9.14 E/E' Lat: 9.80 Right Ventricle TAPSE (mm): 16.50 TVS' Shahid: 11.00 Tricuspid Valve TR Pk Shahid: 2.47 TR Pk Grad: 24.00 RA Press: 3.00 RVSP: 27.00 Great Vessels Aorta Sinus of Valsalva: 3.29 2.0-3.[address] Ridge: 2.85 1.7-3.4 cm Ao Asc: 3.50 2.1-3.4 cm Ao Arch: 3.00 Updated in Other Vendor System with Status of Final Amos Carbajal MD electronically signed on 12/06/2021 12:45:56 PM with status of Final
== END ==
LOC: HO.CARD 09:20
PROVIDERS: Visit Provider Internal Medicine
DX: I10 Essential (primary) hypertension (principal)
CPT/HCPCS: 93306; 93356

== ENCOUNTER 2022-01-18 08:06 | Outpatient (REF) | payer OTHER, SELFPAY ==
[2022-01-18 09:30] LABS: Alanine Aminotransferase 40 U/L (0-40); Albumin Level 4.3 g/dL (3.5-5.0); Alkaline Phosphatase 90 U/L (39-117); Anion Gap 13 (12-20); Aspartate Amino Transferase 21 U/L (5-37); Bilirubin Total 2.7 mg/dL (0.0-1.0); Blood Urea Nitrogen 11 mg/dL (9-16); Calcium 9.6 mg/dL (8.4-10.2); Carbon Dioxide 28 mmol/L (22-29); Chloride 105 mmol/L (96-108); Cholesterol 177 mg/dL; Estimated Glomerular Filt Rate > 60; Glucose Fasting 120 mg/dL (60-99); HDL Cholesterol 31 mg/dL; LDL Cholesterol Calculated 128 mg/dl; Potassium 4.3 mmol/L (3.3-5.1); Sodium 142 mmol/L (135-145); Total Protein 7.2 g/dL (6.5-8.0); Triglycerides 94 mg/dL
[2022-01-18 09:52] LABS: Vitamin D 25-OH Total 28.9 ng/mL (>30)
[2022-01-18 09:54] LABS: Microalbum/Creatinine Ratio Ur 14.1 ug/mg cr
[2022-01-23 21:59] LABS: Apolipoprotein B 109 mg/dL (<90)
== END 2022-01-18 08:07 | disposition home or self-care (01) ==
LOC: HO.LAB 08:06
PROVIDERS: PCP Internal Medicine; Visit Provider Internal Medicine
DX: E78.01 Familial hypercholesterolemia (principal); E78.5 Hyperlipidemia, unspecified; E55.9 Vitamin D deficiency, unspecified; E11.29 Type 2 diabetes mellitus with other diabetic kidney complication; R80.9 Proteinuria, unspecified
CPT/HCPCS: 36415; 80053; 80061; 82043; 82172; 82306

== ENCOUNTER → 2022-01-21 09:26 | Outpatient (BNVA) | payer OTHER, SELFPAY | PROVIDERS: PCP Internal Medicine; Referring Provider Internal Medicine; Visit Provider Internal Medicine | DX: I10 Essential (primary) hypertension (principal) | CPT/HCPCS: 99212 ==

== ENCOUNTER 2022-01-29 08:11 | Outpatient (REF) | payer OTHER, SELFPAY ==
[2022-01-29 09:21] LABS: Anion Gap 14 (12-20); Blood Urea Nitrogen 12 mg/dL (9-16); Carbon Dioxide 30 mmol/L (22-29); Chloride 101 mmol/L (96-108); Estimated Glomerular Filt Rate > 60; Glucose Random 134 mg/dL (60-115); Potassium 4.2 mmol/L (3.3-5.1); Sodium 141 mmol/L (135-145)
[2022-01-29 09:26] LABS: Calcium 9.9 mg/dL (8.4-10.2)
== END 2022-01-29 08:12 | disposition home or self-care (01) ==
LOC: HO.LAB 08:11
PROVIDERS: PCP Internal Medicine; Visit Provider Internal Medicine
DX: I10 Essential (primary) hypertension (principal)
CPT/HCPCS: 36415; 80048

== ENCOUNTER 2022-03-26 09:00 | Outpatient (REF) | payer OTHER, SELFPAY ==
[2022-03-26 09:54] LABS: Alanine Aminotransferase 25 U/L (0-40); Albumin Level 4.4 g/dL (3.5-5.0); Alkaline Phosphatase 84 U/L (39-117); Anion Gap 11 (12-20); Aspartate Amino Transferase 17 U/L (5-37); Bilirubin Total 1.1 mg/dL (0.0-1.0); Blood Urea Nitrogen 10 mg/dL (9-16); Calcium 9.5 mg/dL (8.4-10.2); Carbon Dioxide 27 mmol/L (22-29); Chloride 104 mmol/L (96-108); Cholesterol 145 mg/dL; Estimated Glomerular Filt Rate > 60; Glucose Fasting 130 mg/dL (60-99); HDL Cholesterol 38 mg/dL; LDL Cholesterol Calculated 93 mg/dl; Potassium 4.4 mmol/L (3.3-5.1); Sodium 138 mmol/L (135-145); Total Protein 7.4 g/dL (6.5-8.0); Triglycerides 72 mg/dL
[2022-03-26 11:48] LABS: Creatinine Urine 68.92 mg/dL
== END 2022-03-26 09:01 | disposition home or self-care (01) ==
LOC: HO.LAB 09:00
PROVIDERS: PCP Internal Medicine; Visit Provider Internal Medicine
DX: E78.5 Hyperlipidemia, unspecified (principal); E55.9 Vitamin D deficiency, unspecified; E11.9 Type 2 diabetes mellitus without complications
CPT/HCPCS: 36415; 80053; 80061; 82043; 82306

== ENCOUNTER 2022-07-27 07:34 | Outpatient (REF) | payer MEDICAID, SELFPAY ==
[2022-07-27 09:17] LABS: Creatinine Urine 72.46 mg/dL; Microalbum/Creatinine Ratio Ur 23.4 ug/mg cr
[2022-07-27 09:25] LABS: Alanine Aminotransferase 19 U/L (0-40); Albumin Level 4.7 g/dL (3.5-5.0); Alkaline Phosphatase 73 U/L (39-117); Anion Gap 16 (12-20); Aspartate Amino Transferase 15 U/L (5-37); Bilirubin Total 2.9 mg/dL (0.0-1.0); Blood Urea Nitrogen 13 mg/dL (9-16); Calcium 10.6 mg/dL (8.4-10.2); Carbon Dioxide 27 mmol/L (22-29); Chloride 104 mmol/L (96-108); Cholesterol 153 mg/dL; Estimated Glomerular Filt Rate > 60; Glucose Fasting 90 mg/dL (60-99); HDL Cholesterol 36 mg/dL; LDL Cholesterol Calculated 104 mg/dl; Potassium 4.1 mmol/L (3.3-5.1); Sodium 143 mmol/L (135-145); Total Protein 7.6 g/dL (6.5-8.0); Triglycerides 69 mg/dL
[2022-07-27 09:40] LABS: Vitamin D 25-OH Total 34.1 ng/mL (>30)
== END 2022-07-27 07:35 | disposition home or self-care (01) ==
LOC: HO.LAB 07:34
PROVIDERS: PCP Internal Medicine; Visit Provider Internal Medicine
DX: E11.9 Type 2 diabetes mellitus without complications (principal); E55.9 Vitamin D deficiency, unspecified; E78.5 Hyperlipidemia, unspecified; I10 Essential (primary) hypertension
CPT/HCPCS: 36415; 80053; 80061; 82043; 82306

== ENCOUNTER → 2022-07-29 11:58 | Outpatient (BNVA) | payer MEDICAID, SELFPAY | PROVIDERS: PCP Internal Medicine; Visit Provider Physician Assistant | DX: K76.0 Fatty (change of) liver, not elsewhere classified (principal); E80.6 Other disorders of bilirubin metabolism; I21.4 Non-ST elevation (NSTEMI) myocardial infarction; E78.01 Familial hypercholesterolemia; E83.52 Hypercalcemia; E11.9 Type 2 diabetes mellitus without complications; Z98.890 Other specified postprocedural states | CPT/HCPCS: 99212 ==

== ENCOUNTER → 2022-08-08 08:27 | Outpatient (BNV) | payer MEDICAID, MEDICARE, OTHER, SELFPAY | PROVIDERS: Visit Provider Internal Medicine Medical Oncology | DX: D75.1 Secondary polycythemia (principal) | CPT/HCPCS: 99204; 99213 ==

== ENCOUNTER 2022-08-22 08:32 | Outpatient (REF) | payer OTHER, SELFPAY ==
--- NOTE | ~2022-08-22 | US_ITS ---
EXAMINATION: US ABDOMEN COMPLETE CLINICAL INFORMATION: Fatty change of liver, not elsewhere classified. COMPARISON: Ultrasound abdomen 04/26/2019 and 04/01/2017. CT abdomen and pelvis 11/06/2013. TECHNIQUE: Real-time imaging of the abdominal viscera. FINDINGS: PANCREAS: The pancreas is homogeneous in echotexture and appears normal. ABDOMINAL AORTA: The proximal, mid, and distal segments are normal in caliber. INFERIOR VENA CAVA: Visualized portions are normal. LIVER: The liver is normal in size. The liver contour is normal. There is increased liver echogenicity. No focal hepatic lesion. There is no intrahepatic biliary duct dilatation seen. GALLBLADDER: Surgically absent. COMMON BILE DUCT: Normal in caliber measuring 0.3 cm in diameter. RIGHT KIDNEY: No hydronephrosis or renal calculi. The kidney measures 10.5 cm in maximum dimension. There is an anechoic cyst in the lower pole measuring 1.5 x 1.7 x 1.8 cm. LEFT KIDNEY: There is an anechoic cyst in the mid pole measuring 3.1 x 3.9 x 2.7 cm and a septated upper pole cyst measuring 1.5 x 1.9 x 1.2 cm. No hydronephrosis. The kidney measures 10.5 cm in maximum dimension. SPLEEN: Normal. The spleen measures 10.5 cm in maximum dimension. FREE FLUID: None. US/US abdomen complete IMPRESSION: 1. Bilateral renal cysts. There is a septated cyst upper pole left kidney. 2. The rest of the abdominal ultrasound is unremarkable.
== END 2022-08-22 08:33 | disposition home or self-care (01) ==
LOC: HO.US 08:32
PROVIDERS: Visit Provider Physician Assistant
DX: K76.0 Fatty (change of) liver, not elsewhere classified (principal); E80.6 Other disorders of bilirubin metabolism
CPT/HCPCS: 76700

== ENCOUNTER 2022-12-17 15:01 | Outpatient (REF) | payer OTHER, SELFPAY ==
--- NOTE | ~2022-12-17 | XR_ITS ---
EXAMINATION: XR FOOT, RIGHT CLINICAL INFORMATION: Right foot injury with pain. COMPARISON: 04/16/2021 TECHNIQUE: AP, lateral, and oblique views of the right foot. FINDINGS: There is no evidence of acute fracture or dislocation of the right foot. Right foot joint spaces are maintained. There is some sclerosis with bony density seen about the base of the 1st proximal phalanx likely related to previous trauma and osteochondral defect involving the base of the 1st distal phalanx or 1st metatarsal head. Calcaneal spurs sites of insertion of Achilles and plantar tendons evident. XR/XR foot RT 2V IMPRESSION: No acute fracture identified. Sequela of previous injury involving the 1st metatarsophalangeal joint. Calcaneal spurs.
== END 2022-12-17 15:02 | disposition home or self-care (01) ==
LOC: HO.XRAY 15:01
PROVIDERS: PCP Internal Medicine; Visit Provider Internal Medicine
DX: S99.921A Unspecified injury of right foot, initial encounter (principal)
CPT/HCPCS: 73620

== ENCOUNTER 2023-05-05 09:13 | Outpatient (REF) | payer OTHER, SELFPAY ==
[2023-05-05 09:33] LABS: MANUAL DIFF FLAG NO
[2023-05-05 09:36] LABS: Basophils Percent Auto 0.2 % (0-2); Eosinophils Absolute Auto 0.2 X10*3/uL (0.0-0.4); Eosinophils Percent Auto 2.1 % (0-4); Hemoglobin 14.8 g/dl (14.0-18.0); Imm Gran Abs Auto 0.03 X10*3/uL (0.00-0.03); Imm Gran Pct Auto 0.3 % (0.0-0.4); Lymphocytes Absolute Auto 2.1 X10*3/uL (1.2-4.9); Lymphocytes Percent Auto 22.6 % (20-40); Mean Corpuscular HGB Conc 32.2 g/dl (31.0-36.0); Mean Corpuscular Hemoglobin 26.7 pg (27.0-33.0); Mean Corpuscular Volume 82.9 fL (80.0-98.0); Monocytes Absolute Auto 0.7 X10*3/uL (0.1-1.2); Monocytes Percent Auto 7.2 % (2-11); Neutrophils Absolute Auto 6.2 x10*3/uL (2.0-8.3); Neutrophils Percent Auto 67.6 % (45-73); Platelet Count 231 X10*3/uL (160-400); Red Blood Count 5.55 X10*6/uL (4.60-5.80); Red Cell Distribution Width 13.9 % (11.0-16.0); White Blood Count 9.1 X10*3/uL (4.8-10.8)
[2023-05-05 10:27] LABS: Alanine Aminotransferase 22 U/L (0-40); Albumin Level 4.1 g/dL (3.5-5.0); Alkaline Phosphatase 63 U/L (39-117); Anion Gap 13 (12-20); Aspartate Amino Transferase 17 U/L (5-37); Bilirubin Total 1.9 mg/dL (0.0-1.0); Blood Urea Nitrogen 14 mg/dL (9-16); Carbon Dioxide 28 mmol/L (22-29); Chloride 99 mmol/L (96-108); Cholesterol 246 mg/dL (<200); Estimated Glomerular Filt Rate > 60; Glucose Fasting 116 mg/dL (60-99); Glucose Random 116 mg/dL (60-115); HDL Cholesterol 33 mg/dL (>40); LDL Cholesterol Calculated 197 mg/dL (<100); Potassium 3.9 mmol/L (3.3-5.1); Sodium 136 mmol/L (135-145); Total Protein 7.5 g/dL (6.5-8.0); Triglycerides 82 mg/dL (<150)
[2023-05-05 10:41] LABS: Vitamin D 25-OH Total 35.2 ng/mL (>30)
[2023-05-05 11:11] LABS: Creatinine Urine 48.74 mg/dL; Microalbumin Urine < 5.0 mg/L
[2023-05-06 11:49] LABS: Calcium, Ionized 5.3 mg/dL (4.7-5.5)
[2023-05-06 16:29] LABS: PTHI 43 pg/mL (16-77)
[2023-05-08 12:03] LABS: Apolipoprotein A1 106 mg/dL (>=115); Apolipoprotein B 149 mg/dL (<90)
[2023-05-09 14:48] LABS: Lipoprotein A 94 nmol/L (<75)
[2023-05-11 15:18] LABS: Lipoprotein Asso Phospholip A2 185 (<124)
== END 2023-05-05 09:14 | disposition home or self-care (01) ==
LOC: HO.LAB 09:13
PROVIDERS: Internal Medicine Medical Oncology; PCP Internal Medicine; Visit Provider Internal Medicine
DX: E78.01 Familial hypercholesterolemia (principal); E83.52 Hypercalcemia; I21.4 Non-ST elevation (NSTEMI) myocardial infarction; E78.5 Hyperlipidemia, unspecified; E11.9 Type 2 diabetes mellitus without complications; E55.9 Vitamin D deficiency, unspecified; D58.2 Other hemoglobinopathies
CPT/HCPCS: 36415; 80053; 80061; 82043; 82172; 82306; 82330; 82570; 83695; 83698; 83970; 85025

== ENCOUNTER 2023-05-07 09:13 | Outpatient (REF) | payer OTHER, SELFPAY ==
[2023-05-07 10:52] LABS: Alanine Aminotransferase 20 U/L (0-40); Albumin Level 4.1 g/dL (3.5-5.0); Alkaline Phosphatase 65 U/L (39-117); Anion Gap 10 (12-20); Aspartate Amino Transferase 16 U/L (5-37); Bilirubin Total 1.9 mg/dL (0.0-1.0); Blood Urea Nitrogen 12 mg/dL (9-16); Calcium 9.9 mg/dL (8.4-10.2); Carbon Dioxide 31 mmol/L (22-29); Chloride 98 mmol/L (96-108); Cholesterol 240 mg/dL (<200); Estimated Glomerular Filt Rate > 60; Glucose Fasting 124 mg/dL (60-99); HDL Cholesterol 32 mg/dL (>40); LDL Cholesterol Calculated 187 mg/dL (<100); Sodium 135 mmol/L (135-145); Total Protein 7.5 g/dL (6.5-8.0); Triglycerides 105 mg/dL (<150)
[2023-05-07 12:25] LABS: Creatinine Urine 41.71 mg/dL; Microalbumin Urine < 5.0 mg/L
[2023-05-09 17:33] LABS: Calcium, Random Urine 1.3 mg/dL
== END 2023-05-07 09:14 | disposition home or self-care (01) ==
LOC: HO.LAB 09:13
PROVIDERS: PCP Internal Medicine; Visit Provider Internal Medicine
DX: E78.5 Hyperlipidemia, unspecified (principal); E11.9 Type 2 diabetes mellitus without complications; E83.52 Hypercalcemia
CPT/HCPCS: 36415; 80053; 80061; 82043; 82310; 82570

== ENCOUNTER 2023-05-07 10:04 | Outpatient (AMB) | payer OTHER, SELFPAY ==
--- NOTE | 2023-05-07 10:07 | MHC.PC.OV ---
Vital Signs 05/07/23 10:08 Height 5 ft 4 in Weight 163 lb BMI 28.0 BP 110/86 Blood Pressure Location Lt brachial Position Sitting Intake Visit Reasons: dm Intake Note: Patient here for a follow up DM Land Degradation Analyst Required: No Accompanied by: Self / Same As Patient Allergies vitamin c lotion Allergy (Intermediate, Uncoded 05/07/23 10:18) rash Medication List - Last Reconciled 05/07/23 by Jihan Reid MD aspirin 81 mg PO DAILY atorvastatin 80 mg PO DAILY 90 days cholecalciferol (vitamin D3) 25 mcg PO DAILY 90 days ezetimibe 10 mg PO DAILY 90 days isosorbide mononitrate ER 30 mg PO DAILY losartan-hydrochlorothiazide 100-12.5 mg 1 tab PO DAILY metformin 500 mg (1/2 x 1,000 mg) PO BID 90 days metoprolol tartrate 12.5 mg PO BID pioglitazone 15 mg PO DAILY simethicone 180 mg PO DAILY spironolactone 25 mg PO DAILY ticagrelor (Brilinta) 90 mg PO BID Tobacco use date assessed: 07/26/22 Fall risk assessment: No Falls in past year Last assessed Fall Risk: 05/07/23 Dental Screening Dental Screen Date: 05/07/23 Did you have a dental visit in the last 12 months?: No Did you have a dental problem in the last 6 months where you did not have access to dental care?: No Was dental information given to patient?: Patient has dentist HPI HPI Comments History of Present Illness Details This is a 62-year-old male with diabetes mellitus type 2, hypertension, hyperlipidemia and low vitamin-D that comes today for follow-up on recent labs. Blood pressure stable. A1c within goal. LDL not on goal and cholesterol elevated. He admits he is compliant with atorvastatin 80 mg and ezetimibe 10 mg once a day. He was on Repatha in the past and work great. He has a familial pattern due to everyone in the family has elevated cholesterol. I will restart him on Repatha. He denies any chest pain or shortness of breath. On vitamin-D supplements for his low vitamin-D. [facility] Medical History Daytime sleepiness Hypovitaminosis D Familial hypercholesterolemia BPPV (benign paroxysmal positional vertigo) NAFLD (nonalcoholic fatty liver disease) Essential hypertension GERD (gastroesophageal reflux disease) Hyperbilirubinemia Diabetes mellitus Surgical History History of heart artery stent History of colonoscopy History of cardiac catheterization Family History Father No problems noted. 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 1. Little interest or pleasure in doing things: not at all 2. Feeling down, depressed, or hopeless: not at all 3. Trouble falling or staying asleep, or sleeping too much: not at all 4. Feeling tired or having little energy: not at all 5. Poor appetite or overeating: not at all 6. Feeling bad about yourself - or that you are a failure or have let yourself or your family down: not at all 7. Trouble concentrating on things, such as reading the newspaper or watching television: not at all 8. Moving or speaking so slowly that other people could have noticed. Or the opposite - being so fidgety or restless that you have been moving around a lot more than usual: not at all 9. Thoughts that you would be better off or of hurting yourself in some way: not at all Total score: 0 Depression Screening Interpretation: Negative Depression Screening Done: Yes 79165 - PHQ-9 Billing: Yes Source: Developed by Drs. Brendan Duncan, Trish Holloway, Juan Carlos Gardner and colleagues, with an educational ramona from [employer]. Thrive Questionnaire Date Thrive assessed: 05/07/23 I am a: Patient What is your living situation today?: I have a steady place to live Within the past 12 months, did the food you bought not last and you didn't have the money to get more?: Never true Within the past 12 months, did you worry whether your food would run out before you got money to buy more?: Never true Do you have trouble paying for medicines?: No Do you have trouble getting transportation to medical appointments?: No Do you have trouble paying your heating and electricity bill?: No Do you have trouble taking care of your child, family member or friend?: No Do you have trouble with day-to-day activities such as bathing, preparing meals, shopping, managing finances, etc.?: No Are you currently unemployed and looking for a job?: No Are you interested in more education?: No Please select the resources that you would like help with: None Currently or been in a relationship where the following occur: no concerns reported AUDIT C Alcohol Use Questionnaire (AUDIT-C) 1. How often do you have a drink containing alcohol?: Never Total Score: 0 Score Reviewed/Action Taken: No LULU-7 AMB Questionnaire LULU-7 Date LULU - 7 assessed: 05/07/23 Feeling nervous, anxious, or on edge: 0 = Not at all Not being able to stop or control worryin = Not at all Worrying too much about different things: 0 = Not at all Trouble relaxin = Not at all Being so restless that it is hard to sit still: 0 = Not at all Becoming easily annoyed or irritable: 0 = Not at all Feeling afraid as if something awful might happen: 0 = Not at all Total LULU-7 score (0-4 normal; 5-9 mild; 10-14 moderate; 15-21 severe): 0 Source: Developed by Drs. Brendan Duncan, Trish Holloway, Juan Carlos Gardner and colleagues, with an educational ramona from [employer]. LULU-7 Assessment Billing LULU-7 Assessment Tool: LULU-7 Assessment 84650 Review of Systems Const All systems reviewed & are unremarkable except as noted in HPI and below Eyes Reports no additional complaints, Denies change in vision and Denies other visual disturbances Card Denies chest pain at rest, Denies chest pain with activity, Denies edema, Denies irregular heart rhythm, Denies claudication, Denies dyspnea, Denies dyspnea on exertion, Denies orthopnea, Denies paroxysmal nocturnal dyspnea and Denies slow heart rate Resp Denies cough, Denies dyspnea and Denies dyspnea on exertion GI Denies abdominal pain, Denies change in bowel habits, Denies excessive flatus, Denies nausea and Denies vomiting Denies urinary hesitancy, Denies urinary incontinence and Denies urinary urgency Musc Denies abnormal gait, Denies atrophy, Denies deformity and Denies limited range of motion Skin/Breast Denies bleeding lesions, Denies changing lesions and Denies rash Neuro Denies abnormal gait and Denies lack of coordination Physical exam (Primary Care) Vital Signs: Last Vital Signs BP 110/86 05/07/23 10:08 BMI result Body Mass Index 28.0 Tobacco/Smoking Status: Tobacco use Status Tobacco use date assessed 07/26/22 05/07/23 10:14 Patient Tobacco Use Status Never used Tobacco 05/07/23 10:14 e-Cigarette/Vaping Use Never Used 05/07/23 10:14 PHQ-9: PHQ-9 Score PHQ-9: Total score 0 05/07/23 10:14 Depression Screening Interpretation: Negative Thrive Assessment: Date of Thrive Assessment Date Thrive assessed 05/07/23 05/07/23 10:14 Currently or been in a relationship where the following occur: no concerns reported Eyes General: appearance normal, both eyes and all related structures Eyelids: Yes eyelids normal Conjunctivae: conjunctivae normal Neck Neck: Yes normal visual inspection and Yes supple Resp Effort & Inspection: normal respiratory effort Auscultation: clear to auscultation bilaterally Cardio Jugular venous distension: no JVD Rate: regular rate Rhythm: regular rhythm Heart sounds: S1 normal heart sound present and S2 normal heart sound present Extrem General: Yes full ROM Office Procedures Flu Questionnaire Does the patient have a severe egg allergy?: No Results AMB Hemoglobin A1c AMB Hemoglobin A1c 6.2 % Last Edit by EMILY Serrano on 05/07/23 10:19 Immunizations flu vacc [id number] 6mos up(PF) 60 mcg(15 mcgx4)/0.5 mL IM syringe Performing Provider: Jihan Reid MD [facility] [place] Documented (not given) by: EMILY Serrano on 05/07/23 10:14 Reason Not Given: Patient Refused Assessment and Plan Assessment & Plan (1) Essential hypertension: Code(s): I10 - Essential (primary) hypertension Plan: Continue losartan-hydrochlorothiazide. Blood pressure goal is equal or less than 130/80. (2) Diabetes mellitus: Code(s): E11.9 - Type 2 diabetes mellitus without complications Qualifiers: Diabetes mellitus type: type 2 Diabetes mellitus intermodal customer service insulin use: without intermediate use Diabetes mellitus complication status: with kidney complications Diabetes mellitus complication detail: with microalbuminuria Qualified Code(s): E11.29 - Type 2 diabetes mellitus with other diabetic kidney complication; R80.9 - Proteinuria, unspecified Plan: Continue Actos and metformin. A1c goal is equal or less than 7%. (3) Hyperlipidemia LDL goal <70: Code(s): E78.5 - Hyperlipidemia, unspecified Plan: Continue atorvastatin 80 mg once a day and ezetimibe 10 mg once a day. Start Repatha. LDL goal should be less than 70. Be compliant with high-fiber and low-cholesterol diet. (4) Hypovitaminosis D: Code(s): E55.9 - Vitamin D deficiency, unspecified Plan: Continue vitamin-D supplements. Orders: Orders AMB Hemoglobin A1c Today E11.9 - Type 2 diabetes mellitus without complications Influenza [id number] Immunization Today Z23 - Encounter for immunization Medications: New evolocumab (Repatha SureClick) 140 mg subcut Q2W 90 days 7 mL 3RF E78.01 - Familial hypercholesterolemia, E78.5 - Hyperlipidemia, unspecified Changed From pioglitazone 30 mg PO DAILY 90 days 90 tabs 1RF To pioglitazone 15 mg PO DAILY Coding Level of Care Code Est Pt Level 4 (31561) Diagnoses Essential hypertension I10 Type 2 diabetes mellitus with microalbuminuria, without long-term current use of insulin E11.29; R80.9 Diabetes mellitus type: type 2 Diabetes mellitus intermodal customer service insulin use: without intermodal customer service use Diabetes mellitus complication status: with kidney complications Diabetes mellitus complication detail: with microalbuminuria Hyperlipidemia LDL goal <70 E78.5 Hypovitaminosis D E55.9 Additional Codes LULU-7 Assessment Billing - LULU-7 Assessment Tool: LULU-7 Assessment [id number] ([id number]) Time Spent (min) 23
[2023-05-07 10:08] VITALS: BP 110/86; BMI 28.0
== END 2023-05-07 10:30 | disposition home or self-care (01) ==
PROVIDERS: PCP Internal Medicine; Visit Provider Internal Medicine
DX: I10 Essential (primary) hypertension (principal); E11.29 Type 2 diabetes mellitus with other diabetic kidney complication; R80.9 Proteinuria, unspecified; E78.5 Hyperlipidemia, unspecified; E55.9 Vitamin D deficiency, unspecified
CPT/HCPCS: 83036; 99214

== ENCOUNTER 2023-06-04 09:32 | Outpatient (AMB) | payer OTHER, SELFPAY ==
[2023-06-04 09:41] VITALS: BP 102/70; PULSE 55; O2SAT 98; BMI 27.8
--- NOTE | 2023-06-04 09:41 | HO.NEPHOV ---
HPI HPI Comments History of Present Illness Details I had the privilege of seeing Walt in follow-up of his proteinuria. He has history of for diabetes mellitus as well as hypertension. His baseline serum creatinine has been between 0.8-1 mg/dL. He has history of coronary artery disease and had undergone drug-eluting stent placement. He does not use any nonsteroidal anti-inflammatory use. He is compliant with all his medications. He feels well and does not have any systemic symptoms. His HbA1C is good. He does not have any chest pain, shortness of breath, proximal nocturnal dyspnea, orthopnea, pedal edema or urinary symptoms. He does not take any nonsteroidal anti-inflammatory medications. He has no orthostatic symptoms. [facility] Medical History Daytime sleepiness Hypovitaminosis D Familial hypercholesterolemia BPPV (benign paroxysmal positional vertigo) NAFLD (nonalcoholic fatty liver disease) Essential hypertension GERD (gastroesophageal reflux disease) Hyperbilirubinemia Diabetes mellitus Surgical History History of heart artery stent History of colonoscopy History of cardiac catheterization Family History Father No problems noted. 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 Current occupational exposures/hazards: No Cognitive needs: No Hearing needs: No Vision needs: No Vital Signs 06/04/23 09:41 Height 5 ft 4 in Weight 162 lb 2 oz BMI 27.8 BP 102/70 Blood Pressure Location Rt brachial Position Sitting Pulse 55 Pulse Source Pulse Oximeter Pulse Oximetry (%) 98 Oxygen Delivery Method Room Air Physical Exam Vital Signs: Last Vital Signs Pulse 55 06/04/23 09:41 BP 102/70 06/04/23 09:41 Pulse Ox 98 06/04/23 09:41 Oxygen Delivery Method Room Air 06/04/23 09:41 BMI result Body Mass Index 27.8 Const General: comfortable and no acute distress HEENT Head: Yes normocephalic Mouth: Normal oral and palatal mucosa present Eyes EOM: EOMs intact bilaterally Neck Neck: Yes supple Resp Auscultation: clear to auscultation bilaterally Cardio Jugular venous distension: no JVD Rate: regular rate GI Palpation (GI): Soft to palpation Auscultation: normal bowel sounds General: Yes no CVA tenderness Back/Spine/Pelvis Back: no CVA tenderness Skin General skin exam: no rashes or lesions noted Neuro General: moves all extremities Extrem General: Yes no pedal edema Assessment & Plan Assessment & Plan (1) Essential hypertension: Code(s): I10 - Essential (primary) hypertension Plan Walt has longstanding hypertension. His blood pressure is currently at goal. He is on losartan and spironolactone. He has had coronary artery disease but asymptomatic. He follows up with director post. His blood sugars at goal. He does not have any significant proteinuria. His volume status is optimal. He avoids nonsteroidal anti-inflammatories and maintain good hydration. I did not make any medication changes today. All questions answered. Time spent retrieving data, documentation and patient encounter 23 minutes. Follow-up given. Orders: Orders Electrolytes Today I10 - Essential (primary) hypertension Blood Urea Nitrogen Today I10 - Essential (primary) hypertension Creatinine Today I10 - Essential (primary) hypertension Calcium Today I10 - Essential (primary) hypertension UA and rflx microscopic Today I10 - Essential (primary) hypertension Protein Creatinine Ratio, Ur Today I10 - Essential (primary) hypertension Coding Level of Care Code Est Pt Level 4 (94328) Diagnoses Essential hypertension I10 Results Reviewed Nephrology Results: Hgb 14.8 g/dl (14.0-18.0) 05/05/23 WBC 9.1 X10*3/uL (4.8-10.8) 05/05/23 Plt Count 231 X10*3/uL (160-400) 05/05/23 Sodium 135 mmol/L (135-145) 05/07/23 Potassium 4.0 mmol/L (3.3-5.1) 05/07/23 Chloride 98 mmol/L (96-108) 05/07/23 Carbon Dioxide 31 mmol/L (22-29) H 05/07/23 BUN 12 mg/dL (9-16) 05/07/23 Creatinine 0.98 mg/dL (0.5-1.4) 05/07/23 Calcium 9.9 mg/dL (8.4-10.2) 05/07/23 PTH Intact 43 pg/mL (16-77) 05/05/23 Urine Protein Negative mg/dL (Neg-Trace) 08/08/22 Urine Creatinine 41.71 mg/dL 05/07/23
== END 2023-06-04 10:06 | disposition home or self-care (01) ==
PROVIDERS: PCP Internal Medicine; Visit Provider Internal Medicine Nephrology
DX: I10 Essential (primary) hypertension (principal)
CPT/HCPCS: 99214

== ENCOUNTER → 2023-06-04 09:32 | Outpatient (BNVA) | payer OTHER, SELFPAY | PROVIDERS: PCP Internal Medicine; Visit Provider Internal Medicine Nephrology | DX: I10 Essential (primary) hypertension (principal) | CPT/HCPCS: 99212 ==

== ENCOUNTER 2023-06-17 08:06 | Outpatient (REF) | payer OTHER, SELFPAY ==
[2023-06-17 09:16] LABS: Anion Gap 13 (12-20); Blood Urea Nitrogen 16 mg/dL (9-16); Calcium 9.9 mg/dL (8.4-10.2); Carbon Dioxide 27 mmol/L (22-29); Chloride 101 mmol/L (96-108); Estimated Glomerular Filt Rate > 60; Glucose Random 136 mg/dL (60-115); Potassium 4.2 mmol/L (3.3-5.1); Sodium 137 mmol/L (135-145)
== END 2023-06-17 08:07 | disposition home or self-care (01) ==
LOC: HO.LAB 08:06
PROVIDERS: PCP Internal Medicine; Visit Provider Internal Medicine Cardiovascular Disease
DX: I21.4 Non-ST elevation (NSTEMI) myocardial infarction (principal); I25.118 Atherosclerotic heart disease of native coronary artery with other forms of angina pectoris; I10 Essential (primary) hypertension; E78.2 Mixed hyperlipidemia
CPT/HCPCS: 36415; 80048

== ENCOUNTER 2023-09-03 10:11 | Outpatient (AMB) | payer MEDICARE, MEDICAID, SELFPAY ==
[2023-09-03 10:31] VITALS: BP 100/70; PULSE 60; O2SAT 96; BMI 27.8
--- NOTE | 2023-09-03 10:31 | HO.NEPHOV ---
HPI HPI Comments History of Present Illness Details I had the privilege of seeing Walt who is a 62-year-old male with diabetes mellitus type 2, hypertension and hyperlipidemia. His hemoglobin A1c has been within goal. His fasting blood sugars are good. His blood pressure has been stable . He has no orthostatic symptoms. He is compliant with low-sodium diet and medications. He avoids nonsteroidal anti-inflammatories. He denies any chest pain , shortness of breath, paroxysmal nocturnal dyspnea, orthopnea, pedal edema or urinary symptoms. He feels well. [facility] Medical History Daytime sleepiness Hypovitaminosis D Familial hypercholesterolemia BPPV (benign paroxysmal positional vertigo) NAFLD (nonalcoholic fatty liver disease) Essential hypertension GERD (gastroesophageal reflux disease) Hyperbilirubinemia Diabetes mellitus Surgical History History of heart artery stent History of colonoscopy History of cardiac catheterization Family History Father No problems noted. 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 Current occupational exposures/hazards: No Cognitive needs: No Hearing needs: No Vision needs: No Vital Signs 09/03/23 10:31 Height 5 ft 4 in Weight 162 lb 2 oz BMI 27.8 BP 100/70 Blood Pressure Location Rt brachial Position Sitting Pulse 60 Pulse Source Pulse Oximeter Pulse Oximetry (%) 96 Oxygen Delivery Method Room Air Physical Exam Vital Signs: Last Vital Signs Pulse 60 09/03/23 10:31 BP 100/70 09/03/23 10:31 Pulse Ox 96 09/03/23 10:31 Oxygen Delivery Method Room Air 09/03/23 10:31 BMI result Body Mass Index 27.8 Const General: comfortable and no acute distress Orientation/consciousness: patient oriented x3 HEENT Head: Yes normocephalic Mouth: Normal oral and palatal mucosa present Eyes EOM: EOMs intact bilaterally Neck Neck: Yes supple Resp Auscultation: clear to auscultation bilaterally Cardio Jugular venous distension: no JVD Rate: regular rate GI Palpation (GI): Soft to palpation Auscultation: normal bowel sounds General: Yes no CVA tenderness Back/Spine/Pelvis Back: no CVA tenderness Skin General skin exam: no rashes or lesions noted Neuro General: patient oriented x3 and moves all extremities Extrem General: Yes no pedal edema Assessment & Plan Assessment & Plan (1) Hypertension: Code(s): I10 - Essential (primary) hypertension Qualifiers: Hypertension type: primary hypertension Qualified Code(s): I10 - Essential (primary) hypertension Plan Walt has longstanding hypertension. His blood pressure is at goal. He has diabetes which is well controlled. He is tolerating angiotensin receptor deepti. His serum potassium and renal functions are normal. He does not have any proteinuria or retinopathy. He has no orthostatic symptoms. He maintains good hydration and keep up with the low-sodium diet. I did not make any medication changes today. Follow-up lab work ordered. Answered all questions. Follow-up appointment given. Orders: Orders Electrolytes Today I10 - Essential (primary) hypertension Calcium Today I10 - Essential (primary) hypertension Blood Urea Nitrogen Today I10 - Essential (primary) hypertension Creatinine Today I10 - Essential (primary) hypertension Protein Creatinine Ratio, Ur Today I10 - Essential (primary) hypertension Coding Level of Care Code Est Pt Level 3 (30922) Diagnoses Primary hypertension I10 Hypertension type: primary hypertension Results Reviewed Nephrology Results: Hgb 13.1 g/dl (14.0-18.0) L 08/21/23 WBC 6.1 X10*3/uL (4.8-10.8) 08/21/23 Plt Count 218 X10*3/uL (160-400) 08/21/23 Sodium 139 mmol/L (135-145) 08/21/23 Potassium 4.6 mmol/L (3.3-5.1) 08/21/23 Chloride 105 mmol/L (96-108) 08/21/23 Carbon Dioxide 29 mmol/L (22-29) 08/21/23 BUN 16 mg/dL (9-16) 08/21/23 Creatinine 0.99 mg/dL (0.5-1.4) 08/21/23 Calcium 9.8 mg/dL (8.4-10.2) 08/21/23 PTH Intact 43 pg/mL (16-77) 05/05/23 Urine Protein Negative mg/dL (Neg-Trace) 08/08/22 Urine Creatinine 41.71 mg/dL 05/07/23
== END 2023-09-03 10:58 | disposition home or self-care (01) ==
PROVIDERS: PCP Internal Medicine; Visit Provider Internal Medicine Nephrology
DX: I10 Essential (primary) hypertension (principal)
CPT/HCPCS: 99213

== ENCOUNTER → 2023-09-03 10:11 | Outpatient (BNVA) | payer MEDICARE, MEDICAID, SELFPAY | PROVIDERS: PCP Internal Medicine; Visit Provider Internal Medicine Nephrology | DX: I10 Essential (primary) hypertension (principal); E11.9 Type 2 diabetes mellitus without complications; E78.5 Hyperlipidemia, unspecified | CPT/HCPCS: 99212 ==

== ENCOUNTER 2023-09-08 09:38 | Outpatient (REF) | payer MEDICARE, MEDICAID, SELFPAY ==
[2023-09-08 11:24] LABS: Alanine Aminotransferase 16 U/L (0-40); Albumin Level 4.3 g/dL (3.5-5.0); Alkaline Phosphatase 70 U/L (39-117); Anion Gap 13 (12-20); Aspartate Amino Transferase 14 U/L (5-37); Bilirubin Total 1.6 mg/dL (0.0-1.0); Blood Urea Nitrogen 15 mg/dL (9-16); Calcium 10.1 mg/dL (8.4-10.2); Carbon Dioxide 27 mmol/L (22-29); Chloride 102 mmol/L (96-108); Cholesterol 310 mg/dL (<200); Estimated Glomerular Filt Rate > 60; Glucose Fasting 119 mg/dL (60-99); HDL Cholesterol 39 mg/dL (>40); LDL Cholesterol Calculated 252 mg/dL (<100); Potassium 4.2 mmol/L (3.3-5.1); Sodium 138 mmol/L (135-145); Total Protein 7.6 g/dL (6.5-8.0); Triglycerides 99 mg/dL (<150)
[2023-09-08 11:32] LABS: Microalbum/Creatinine Ratio Ur 5.2 ug/mg cr (<30)
== END 2023-09-08 09:39 | disposition home or self-care (01) ==
LOC: HO.LAB 09:38
PROVIDERS: PCP Internal Medicine; Visit Provider Internal Medicine
DX: I21.4 Non-ST elevation (NSTEMI) myocardial infarction (principal); E78.5 Hyperlipidemia, unspecified; E11.9 Type 2 diabetes mellitus without complications
CPT/HCPCS: 36415; 80053; 80061; 82043; 82570

== ENCOUNTER 2023-09-11 09:34 | Outpatient (AMB) | payer MEDICARE, MEDICAID, SELFPAY ==
[2023-09-11 09:53] VITALS: BP 110/80; BMI 27.1
--- NOTE | 2023-09-11 09:53 | A.OFFPC_ITS ---
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 Required: No Accompanied by: Self / Same As Patient Allergies vitamin c lotion Allergy (Intermediate, Uncoded 09/11/23 10:20) rash Medication List - Last Reconciled 09/11/23 by Jihan Reid MD aspirin 81 mg PO DAILY atorvastatin 80 mg PO DAILY 90 days cholecalciferol (vitamin D3) 25 mcg PO DAILY 90 days ezetimibe 10 mg PO DAILY 90 days ferrous sulfate 325 mg PO BID isosorbide mononitrate ER 60 mg PO DAILY losartan-hydrochlorothiazide 100-12.5 mg 1 tab PO DAILY metformin 500 mg (1/2 x 1,000 mg) PO BID 90 days metoprolol tartrate 12.5 mg PO BID pioglitazone 15 mg PO DAILY simethicone 180 mg PO DAILY spironolactone 25 mg PO DAILY ticagrelor (Brilinta) 90 mg PO BID Tobacco use date assessed: 09/11/23 Fall risk assessment: No Falls in past year Last assessed Fall Risk: 09/11/23 Dental Screening Dental Screen Date: 09/11/23 Did you have a dental visit in the last 12 months?: No Did you have a dental problem in the last 6 months where you did not have access to dental care?: No Was dental information given to patient?: Patient has dentist HPI HPI Comments History of Present Illness Details This is a 62-year-old male with diabetes mellitus type 2, hypertension, familial hypercholesterolemia, GERD and history of non-STEMI in 2021 that comes today for follow-up on his conditions. A1c within goal. Blood pressure stable. LDL not on goal and Zetia was not approved by insurance. I will start him on Repatha which is needed due to his history of diabetes and non-STEMI. On aspirin and Brilinta for secondary prophylaxis of non-STEMI. Follows with cardiology. GERD stable with diet. No chest pain or shortness of breath. [facility] Medical History (Updated 09/11/23 @ 12:17 by Jihan Reid MD) Elevated hemoglobin Daytime sleepiness Hypovitaminosis D Familial hypercholesterolemia BPPV (benign paroxysmal positional vertigo) NAFLD (nonalcoholic fatty liver disease) Essential hypertension GERD (gastroesophageal reflux disease) Hyperbilirubinemia Diabetes mellitus Surgical History History of heart artery stent History of colonoscopy History of cardiac catheterization Family History Father No problems noted. 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 1. Little interest or pleasure in doing things: not at all 2. Feeling down, depressed, or hopeless: not at all 3. Trouble falling or staying asleep, or sleeping too much: not at all 4. Feeling tired or having little energy: not at all 5. Poor appetite or overeating: not at all 6. Feeling bad about yourself - or that you are a failure or have let yourself or your family down: not at all 7. Trouble concentrating on things, such as reading the newspaper or watching television: not at all 8. Moving or speaking so slowly that other people could have noticed. Or the opposite - being so fidgety or restless that you have been moving around a lot more than usual: not at all 9. Thoughts that you would be better off or of hurting yourself in some way: not at all Total score: 0 Depression Screening Interpretation: Negative Depression Screening Done: Yes 41249 - PHQ-9 Billing: Yes Source: Developed by Drs. Brendan Duncan, Trish Holloway, Juan Carlos Gardner and colleagues, with an educational ramona from [employer]. Thrive Questionnaire Date Thrive assessed: 09/11/23 I am a: Patient What is your living situation today?: I have a steady place to live Within the past 12 months, did the food you bought not last and you didn't have the money to get more?: Never true Within the past 12 months, did you worry whether your food would run out before you got money to buy more?: Never true Do you have trouble paying for medicines?: No Do you have trouble getting transportation to medical appointments?: No Do you have trouble paying your heating and electricity bill?: No Do you have trouble taking care of your child, family member or friend?: No Do you have trouble with day-to-day activities such as bathing, preparing meals, shopping, managing finances, etc.?: No Are you currently unemployed and looking for a job?: No Are you interested in more education?: No Please select the resources that you would like help with: None Currently or been in a relationship where the following occur: no concerns reported THRIVE Score: 0 AUDIT C Alcohol Use Questionnaire (AUDIT-C) 1. How often do you have a drink containing alcohol?: Never Total Score: 0 LULU-7 AMB Questionnaire LULU-7 Date LULU - 7 assessed: 09/11/23 Feeling nervous, anxious, or on edge: 0 = Not at all Not being able to stop or control worryin = Not at all Worrying too much about different things: 0 = Not at all Trouble relaxin = Not at all Being so restless that it is hard to sit still: 0 = Not at all Becoming easily annoyed or irritable: 0 = Not at all Feeling afraid as if something awful might happen: 0 = Not at all Total LULU-7 score (0-4 normal; 5-9 mild; 10-14 moderate; 15-21 severe): 0 Source: Developed by Drs. Brendan Duncan, Trish Holloway, Juan Carlos Gardner and colleagues, with an educational ramona from [employer]. LULU-7 Assessment Billing LULU-7 Assessment Tool: LULU-7 Assessment 36677 Review of Systems Const All systems reviewed & are unremarkable except as noted in HPI and below Eyes Reports no additional complaints, Denies change in vision and Denies other visual disturbances Card Denies chest pain at rest, Denies chest pain with activity, Denies edema, Denies irregular heart rhythm, Denies claudication, Denies dyspnea, Denies dyspnea on exertion, Denies orthopnea, Denies paroxysmal nocturnal dyspnea and Denies slow heart rate Resp Denies cough, Denies dyspnea and Denies dyspnea on exertion GI Denies abdominal pain, Denies change in bowel habits, Denies excessive flatus, Denies nausea and Denies vomiting Denies urinary hesitancy, Denies urinary incontinence and Denies urinary urgency Musc Denies abnormal gait, Denies atrophy, Denies deformity and Denies limited range of motion Skin/Breast Denies bleeding lesions, Denies changing lesions and Denies rash Neuro Denies abnormal gait, Denies behavioral changes and Denies lack of coordination Psych Denies behavioral changes Physical exam (Primary Care) Vital Signs: Last Vital Signs BP 110/80 09/11/23 09:53 BMI result Body Mass Index 27.1 Tobacco/Smoking Status: Tobacco use Status Tobacco use date assessed 09/11/23 09/11/23 09:58 Patient Tobacco Use Status Never used Tobacco 09/11/23 09:58 e-Cigarette/Vaping Use Never Used 09/11/23 09:58 PHQ-9: PHQ-9 Score PHQ-9: Total score 0 09/11/23 10:25 Depression Screening Interpretation: Negative Thrive Assessment: Date of Thrive Assessment Date Thrive assessed 09/11/23 09/11/23 09:58 Currently or been in a relationship where the following occur: no concerns reported Eyes General: appearance normal, both eyes and all related structures Eyelids: Yes eyelids normal Conjunctivae: conjunctivae normal Neck Neck: Yes normal visual inspection and Yes supple Resp Effort & Inspection: normal respiratory effort Auscultation: clear to auscultation bilaterally Cardio Jugular venous distension: no JVD Rate: regular rate Rhythm: regular rhythm Heart sounds: S1 normal heart sound present and S2 normal heart sound present Extrem General: Yes full ROM Results AMB Hemoglobin A1c AMB Hemoglobin A1c 5.6 % Last Edit by EMILY Serrano on 09/11/23 09:5 9 Results Reviewed Results Reviewed: Laboratory Last Values Hgb A1c (Clinic) 5.6 % (4.0-6.0) 09/11/23 09:53 Assessment and Plan Assessment & Plan (1) Diabetes mellitus: Code(s): E11.9 - Type 2 diabetes mellitus without complications Qualifiers: Diabetes mellitus type: type 2 Diabetes mellitus supervisor intermediates insulin use: without supervisor intermediates use Diabetes mellitus complication status: with kidney complications Diabetes mellitus complication detail: with microalbuminuria Qualified Code(s): E11.29 - Type 2 diabetes mellitus with other diabetic kidney complication; R80.9 - Proteinuria, unspecified Plan: Continue metformin. A1c goal is equal or less than 7%. Discontinue Actos due to not being approved by insurance. (2) Essential hypertension: Code(s): I10 - Essential (primary) hypertension Plan: Continue losartan-hydrochlorothiazide. Blood pressure goal is equal or less than 130/80. Continue spironolactone. (3) GERD (gastroesophageal reflux disease): Code(s): K21.9 - Gastro-esophageal reflux disease without esophagitis Qualifiers: Esophagitis presence: without esophagitis Qualified Code(s): K21.9 - Gastro-esophageal reflux disease without esophagitis Plan: Continue low acid diet. (4) Familial hypercholesterolemia: Code(s): E78.01 - Familial hypercholesterolemia Plan: Continue statins. Restart Zetia and Repatha. LDL goal should be less than 70. (5) NSTEMI (non-ST elevated myocardial infarction): Comment: 2021 Code(s): I21.4 - Non-ST elevation (NSTEMI) myocardial infarction Plan: Continue aspirin for secondary prophylaxis. Continue Brilinta after colonoscopy. Orders: Orders Lipid Panel 4 Months E78.5 - Hyperlipidemia, unspecified Microalbumin, Random (w Creat) 4 Months E11.9 - Type 2 diabetes mellitus without complications AMB Hemoglobin A1c Today E11.9 - Type 2 diabetes mellitus without complications Comprehensive [place]. Panel Fast 4 Months E11.9 - Type 2 diabetes mellitus without complications Complete Blood Count Auto Diff 4 Months D64.9 - Anemia, unspecified IRON PROFILE 4 Months D64.9 - Anemia, unspecified Vitamin D 25-OH Total 4 Months E55.9 - Vitamin D deficiency, unspecified Medications: New evolocumab (Repatha SureClick) 140 mg subcut Q2W 30 days 3 mL 6RF E11.9 - Type 2 diabetes mellitus without complications, E78.01 - Familial hypercholesterolemia, I21.4 - Non-ST elevation (NSTEMI) myocardial infarction Coding Level of Care Code Est Pt Level 4 (35038) Diagnoses Type 2 diabetes mellitus with microalbuminuria, without long-term current use of insulin E11.29; R80.9 Diabetes mellitus type: type 2 Diabetes mellitus supervisor intermediates insulin use: without long-term use Diabetes mellitus complication status: with kidney complications Diabetes mellitus complication detail: with microalbuminuria Essential hypertension I10 Gastroesophageal reflux disease without esophagitis K21.9 Esophagitis presence: without esophagitis Familial hypercholesterolemia E78.01 NSTEMI (non-ST elevated myocardial infarction) I21.4 Additional Codes LULU-7 Assessment Billing - LULU-7 Assessment Tool: LULU-7 Assessment 93175 ([id number]) Time Spent (min) 24
== END 2023-09-11 10:34 | disposition home or self-care (01) ==
PROVIDERS: PCP Internal Medicine; Visit Provider Internal Medicine
DX: E11.29 Type 2 diabetes mellitus with other diabetic kidney complication (principal); I25.2 Old myocardial infarction; R80.9 Proteinuria, unspecified; I10 Essential (primary) hypertension; K21.9 Gastro-esophageal reflux disease without esophagitis; E78.01 Familial hypercholesterolemia
CPT/HCPCS: 83036; 99214

== ENCOUNTER 2024-01-13 08:02 | Outpatient (REF) | payer OTHER, SELFPAY ==
[2024-01-13 08:12] LABS: MANUAL DIFF FLAG NO
[2024-01-13 08:48] LABS: Basophils Percent Auto 0.4 % (0-2); Eosinophils Absolute Auto 0.2 X10*3/uL (0.0-0.4); Eosinophils Percent Auto 3.2 % (0-4); Hemoglobin 15.2 g/dl (14.0-18.0); Imm Gran Abs Auto 0.05 X10*3/uL (0.00-0.03); Imm Gran Pct Auto 0.7 % (0.0-0.4); Lymphocytes Absolute Auto 2.3 X10*3/uL (1.2-4.9); Lymphocytes Percent Auto 32.2 % (20-40); Mean Corpuscular HGB Conc 32.3 g/dl (31.0-36.0); Mean Corpuscular Volume 83.5 fL (80.0-98.0); Mean Platelet Volume 11.7 fL (9.4-12.4); Monocytes Absolute Auto 0.6 X10*3/uL (0.1-1.2); Monocytes Percent Auto 8.8 % (2-11); Neutrophils Percent Auto 54.7 % (45-73); Platelet Count 219 X10*3/uL (160-400); Red Blood Count 5.63 X10*6/uL (4.60-5.80); Red Cell Distribution Width 16.6 % (11.0-16.0); White Blood Count 7.3 X10*3/uL (4.8-10.8)
[2024-01-13 09:21] LABS: Microalbum/Creatinine Ratio Ur 5.8 ug/mg cr (<30)
[2024-01-13 09:39] LABS: Alanine Aminotransferase 22 U/L (0-40); Albumin Level 4.3 g/dL (3.5-5.0); Alkaline Phosphatase 71 U/L (39-117); Anion Gap 13 (12-20); Aspartate Amino Transferase 17 U/L (5-37); Bilirubin Total 2.2 mg/dL (0.0-1.0); Blood Urea Nitrogen 17 mg/dL (9-16); Calcium 9.9 mg/dL (8.4-10.2); Carbon Dioxide 25 mmol/L (22-29); Chloride 103 mmol/L (96-108); Cholesterol 172 mg/dL (<200); Estimated Glomerular Filt Rate > 60; Glucose Fasting 121 mg/dL (60-99); HDL Cholesterol 34 mg/dL (>40); Iron 128 mcg/dL (45-160); LDL Cholesterol Calculated 110 mg/dL (<100); Percent Iron Saturation 38 % (15-50); Sodium 137 mmol/L (135-145); Total Iron Binding Capacity 341 mcg/dL (228-428); Total Protein 7.4 g/dL (6.5-8.0); Triglycerides 143 mg/dL (<150); Unsaturated Iron Binding 213 ug/dL
[2024-01-13 09:43] LABS: Vitamin D 25-OH Total 35.3 ng/mL (>30)
== END 2024-01-13 08:03 | disposition home or self-care (01) ==
LOC: HO.LAB 08:02
PROVIDERS: PCP Internal Medicine; Visit Provider Internal Medicine
DX: E55.9 Vitamin D deficiency, unspecified (principal); E11.9 Type 2 diabetes mellitus without complications; E78.5 Hyperlipidemia, unspecified; D64.9 Anemia, unspecified
CPT/HCPCS: 36415; 80053; 80061; 82043; 82306; 82570; 83540; 85025

== ENCOUNTER 2024-01-15 07:55 | Outpatient (AMB) | payer OTHER, SELFPAY ==
--- NOTE | 2024-01-15 08:14 | MHC.PC.OV ---
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 Required: No Accompanied by: Self / Same As Patient Allergies vitamin c lotion Allergy (Intermediate, Uncoded 01/15/24 08:25) rash Medication List - Last Reconciled 01/15/24 by Jihan Reid MD aspirin 81 mg PO DAILY atorvastatin 80 mg PO DAILY 90 days cholecalciferol (vitamin D3) 25 mcg PO DAILY 90 days evolocumab (Repatha SureClick) 140 mg subcut Q2W 30 days ezetimibe 10 mg PO DAILY 90 days ferrous sulfate 325 mg PO BID isosorbide mononitrate ER 60 mg PO DAILY losartan-hydrochlorothiazide 100-12.5 mg 1 tab PO DAILY metformin 500 mg (1/2 x 1,000 mg) PO BID 90 days metoprolol tartrate 12.5 mg PO BID pioglitazone 30 mg PO DAILY 90 days simethicone 180 mg PO DAILY spironolactone 25 mg PO DAILY ticagrelor (Brilinta) 90 mg PO BID Tobacco use date assessed: 09/11/23 Fall risk assessment: No Falls in past year Last assessed Fall Risk: 01/15/24 Dental Screening Dental Screen Date: 09/11/23 HPI HPI Comments History of Present Illness Details This is a 63-year-old male with diabetes mellitus type 2, hypertension, familial hypercholesterolemia and GERD that comes today for follow-up on his conditions. A1c within goal. Blood pressure stable. LDL not on goal but has markedly improved. Was advised to do a low-cholesterol diet. GERD stable with PPIs. Denies any chest pain or shortness on breath. [facility] Medical History Elevated hemoglobin Daytime sleepiness Hypovitaminosis D Familial hypercholesterolemia BPPV (benign paroxysmal positional vertigo) NAFLD (nonalcoholic fatty liver disease) Essential hypertension GERD (gastroesophageal reflux disease) Hyperbilirubinemia Diabetes mellitus Surgical History History of heart artery stent History of colonoscopy History of cardiac catheterization Family History Father No problems noted. 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 Brendan Duncan, Trish Holloway, Juan Carlos Gardner and colleagues, with an educational ramona from [employer]. Review of Systems Const All systems reviewed & are unremarkable except as noted in HPI and below Card Denies chest pain at rest, Denies chest pain with activity, Denies edema, Denies irregular heart rhythm, Denies claudication, Denies dyspnea, Denies dyspnea on exertion, Denies orthopnea, Denies paroxysmal nocturnal dyspnea and Denies slow heart rate Resp Denies cough, Denies dyspnea and Denies dyspnea on exertion GI Denies abdominal pain, Denies change in bowel habits, Denies excessive flatus, Denies nausea and Denies vomiting Physical exam (Primary Care) Vital Signs: Last Vital Signs BP 108/70 01/15/24 08:17 BMI result Body Mass Index 28.8 Tobacco/Smoking Status: Tobacco use Status Tobacco use date assessed 09/11/23 01/15/24 08:15 Patient Tobacco Use Status Never used Tobacco 01/15/24 08:15 e-Cigarette/Vaping Use Never Used 01/15/24 08:15 Thrive Assessment: Date of Thrive Assessment Date Thrive assessed 09/11/23 01/15/24 08:15 Resp Effort & Inspection: normal respiratory effort Auscultation: clear to auscultation bilaterally Cardio Jugular venous distension: no JVD Rate: regular rate Rhythm: regular rhythm Heart sounds: S1 normal heart sound present and S2 normal heart sound present Neuro General: no focal motor deficits Results AMB Hemoglobin A1c AMB Hemoglobin A1c 6.0 % Last Edit by EMILY Serrano on 01/15/24 08:25 Assessment and Plan Assessment & Plan (1) Diabetes mellitus: Code(s): E11.9 - Type 2 diabetes mellitus without complications Qualifiers: Diabetes mellitus type: type 2 Diabetes mellitus oil heaterman insulin use: without prison use Diabetes mellitus complication status: with kidney complications Diabetes mellitus complication detail: with microalbuminuria Qualified Code(s): E11.29 - Type 2 diabetes mellitus with other diabetic kidney complication; R80.9 - Proteinuria, unspecified Plan: Continue metformin and Actos. A1c goal is equal or less than 7%. (2) Essential hypertension: Code(s): I10 - Essential (primary) hypertension Plan: Continue losartan-hydrochlorothiazide. Blood pressure goal is equal or less than 130/80. (3) GERD (gastroesophageal reflux disease): Code(s): K21.9 - Gastro-esophageal reflux disease without esophagitis Qualifiers: Esophagitis presence: without esophagitis Qualified Code(s): K21.9 - Gastro-esophageal reflux disease without esophagitis Plan: Continue PPIs. (4) Familial hypercholesterolemia: Code(s): E78.01 - Familial hypercholesterolemia Plan: Continue high-dose statins, Repatha and Zetia. LDL goal is less than 70. Orders: Orders Lipid Panel 4 Months E78.5 - Hyperlipidemia, unspecified Vitamin D 25-OH Total 4 Months E55.9 - Vitamin D deficiency, unspecified Complete Blood Count Auto Diff 4 Months D64.9 - Anemia, unspecified IRON PROFILE 4 Months D64.9 - Anemia, unspecified AMB Hemoglobin A1c Today E11.29 - Type 2 diabetes mellitus with other diabetic kidney complication, R80.9 - Proteinuria, unspecified Microalbumin, Random (w Creat) 4 Months E11.9 - Type 2 diabetes mellitus without complications Comprehensive [place]. Panel Fast 4 Months E11.29 - Type 2 diabetes mellitus with other diabetic kidney complication, R80.9 - Proteinuria, unspecified Medications: Discontinued ferrous sulfate Discontinued Reason: Patient Completed Course 325 mg PO BID 60 tabs 3RF Coding Level of Care Code Est Pt Level 4 (27951) Complex EM visit Add On G2211 Diagnoses Type 2 diabetes mellitus with microalbuminuria, without long-term current use of insulin E11.29; R80.9 Diabetes mellitus type: type 2 Diabetes mellitus oil heaterman insulin use: without oil heaterman use Diabetes mellitus complication status: with kidney complications Diabetes mellitus complication detail: with microalbuminuria Essential hypertension I10 Gastroesophageal reflux disease without esophagitis K21.9 Esophagitis presence: without esophagitis Familial hypercholesterolemia E78.01 Time Spent (min) 23
[2024-01-15 08:17] VITALS: BP 108/70; BMI 28.8
== END 2024-01-15 08:34 | disposition home or self-care (01) ==
PROVIDERS: PCP Internal Medicine; Visit Provider Internal Medicine
DX: E11.29 Type 2 diabetes mellitus with other diabetic kidney complication (principal); R80.9 Proteinuria, unspecified; I10 Essential (primary) hypertension; K21.9 Gastro-esophageal reflux disease without esophagitis; E78.01 Familial hypercholesterolemia
CPT/HCPCS: 83036; 99214; G2211

== ENCOUNTER 2024-03-05 10:58 | Outpatient (AMB) | payer OTHER, SELFPAY ==
--- NOTE | 2024-03-05 11:06 | HO.NEPHOV ---
Vital Signs 03/05/24 11:08 Height 5 ft 4 in Weight 169 lb 6 oz BMI 29.1 BP 94/60 Blood Pressure Location Rt brachial Position Sitting Pulse 62 Pulse Source Pulse Oximeter Pulse Oximetry (%) 97 Oxygen Delivery Method Room Air Intake Visit Reasons: Rscng missed 03/03 appt Hospice Patient Care Secretary Required: Yes Hospice Patient Care Secretary Services: Hospice Patient Care Secretary Present Accompanied by: Self / Same As Patient Allergies vitamin c lotion Allergy (Intermediate, Uncoded 01/15/24 08:25) rash HPI Comments Details: I had the privilege of seeing Walt who is a 63-year-old male with diabetes mellitus type 2, hypertension and hyperlipidemia. His hemoglobin A1c has been within goal. His fasting blood sugars are good. His blood pressure has been stable . He has no orthostatic symptoms. He is compliant with low-sodium diet and medications. He avoids nonsteroidal anti-inflammatories. He denies any chest pain , shortness of breath, paroxysmal nocturnal dyspnea, orthopnea, pedal edema or urinary symptoms. He feels well. [facility] Medical History Elevated hemoglobin Daytime sleepiness Hypovitaminosis D Familial hypercholesterolemia BPPV (benign paroxysmal positional vertigo) NAFLD (nonalcoholic fatty liver disease) Essential hypertension GERD (gastroesophageal reflux disease) Hyperbilirubinemia Diabetes mellitus Surgical History History of heart artery stent History of colonoscopy History of cardiac catheterization Family History Father No problems noted. 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 Current occupational exposures/hazards: No Cognitive needs: No Hearing needs: No Vision needs: No Review of Systems Const All systems reviewed & are unremarkable except as noted in HPI and below Physical Exam Vital Signs: Last Vital Signs Pulse 62 03/05/24 11:08 BP 94/60 03/05/24 11:08 Pulse Ox 97 03/05/24 11:08 Oxygen Delivery Method Room Air 03/05/24 11:08 BMI result Body Mass Index 29.1 Const General: comfortable and no acute distress Orientation/consciousness: patient oriented x3 HEENT Head: Yes normocephalic Mouth: Normal oral and palatal mucosa present Eyes EOM: EOMs intact bilaterally Neck Neck: Yes supple Resp Auscultation: clear to auscultation bilaterally Cardio Jugular venous distension: no JVD Rate: regular rate GI Palpation (GI): Soft to palpation Auscultation: normal bowel sounds General: Yes no CVA tenderness Back/Spine/Pelvis Back: no CVA tenderness Skin General skin exam: no rashes or lesions noted Neuro General: patient oriented x3 and moves all extremities Extrem General: Yes no pedal edema Results Reviewed Nephrology Results: Hgb 15.2 g/dl (14.0-18.0) 01/13/24 WBC 7.3 X10*3/uL (4.8-10.8) 01/13/24 Plt Count 219 X10*3/uL (160-400) 01/13/24 Sodium 137 mmol/L (135-145) 01/13/24 Potassium 4.0 mmol/L (3.3-5.1) 01/13/24 Chloride 103 mmol/L (96-108) 01/13/24 Carbon Dioxide 25 mmol/L (22-29) 01/13/24 BUN 17 mg/dL (9-16) H 01/13/24 Creatinine 1.10 mg/dL (0.5-1.4) 01/13/24 Calcium 9.9 mg/dL (8.4-10.2) 01/13/24 Urine Protein Negative mg/dL (Neg-Trace) 08/08/22 Urine Creatinine 258.00 mg/dL 01/13/24 Assessment & Plan Assessment & Plan (1) CKD stage 3a, GFR 45-59 ml/min: Code(s): N18.31 - Chronic kidney disease, stage 3a Category: Medical (2) Hypertension: Code(s): I10 - Essential (primary) hypertension Category: Medical Qualifiers: Hypertension type: primary hypertension Qualified Code(s): I10 - Essential (primary) hypertension Plan Walt has longstanding hypertension. His blood pressure is at goal. He has diabetes which is well controlled. He is tolerating angiotensin receptor deepti. His serum potassium and renal functions are normal. He does not have any proteinuria or retinopathy. He has no orthostatic symptoms. He maintains good hydration and keep up with the low-sodium diet. I did not make any medication changes today. Follow-up lab work ordered. Answered all questions. Follow-up appointment given Orders: Orders Creatinine Today N18.31 - Chronic kidney disease, stage 3a Electrolytes Today N18.31 - Chronic kidney disease, stage 3a Protein Creatinine Ratio, Ur Today N18.31 - Chronic kidney disease, stage 3a Blood Urea Nitrogen Today N18.31 - Chronic kidney disease, stage 3a Coding Level of Care Code Est Pt Level 4 (30022) Diagnoses CKD stage 3a, GFR 45-59 ml/min N18.31 Primary hypertension I10 Hypertension type: primary hypertension
[2024-03-05 11:08] VITALS: BP 94/60; PULSE 62; O2SAT 97; BMI 29.1
== END 2024-03-05 11:20 | disposition home or self-care (01) ==
PROVIDERS: PCP Internal Medicine; Visit Provider Internal Medicine Nephrology
DX: N18.31 Chronic kidney disease, stage 3a (principal); I10 Essential (primary) hypertension
CPT/HCPCS: 99214

== ENCOUNTER → 2024-03-05 10:58 | Outpatient (BNVA) | payer OTHER, SELFPAY | PROVIDERS: PCP Internal Medicine; Visit Provider Internal Medicine Nephrology | DX: E11.22 Type 2 diabetes mellitus with diabetic chronic kidney disease (principal); I12.9 Hypertensive chronic kidney disease with stage 1 through stage 4 chronic kidney disease, or unspecified chronic kidney disease; E78.5 Hyperlipidemia, unspecified; N18.31 Chronic kidney disease, stage 3a | CPT/HCPCS: 99212 ==

== ENCOUNTER 2024-08-31 14:26 | Outpatient (REF) | payer MEDICARE, SELFPAY ==
[2024-08-31 16:09] LABS: Anion Gap 11 (12-20); Blood Urea Nitrogen 18 mg/dL (9-16); Carbon Dioxide 27 mmol/L (22-29); Chloride 105 mmol/L (96-108); Estimated Glomerular Filt Rate > 60; Potassium 4.5 mmol/L (3.3-5.1); Sodium 138 mmol/L (135-145)
--- OUTSIDE RECORDS SUMMARY | 2024-08-31 17:44 | XMS_ITS | Encounter Summary ---
Author Organization [facility] Address [id number] [place] [id number] Care Team Providers Care Java Project Manager Name Role Phone Jihan Reid MD Primary Care Provider [phone] Reason for Visit * Reason Comments Follow-up 6 mo * Other Medical (Routine) - Authorized Specialty Diagnoses / Procedures Referred By Ralph t Referred To Contact Cardiology Diagnoses [per KAI, Return in about 6 months (around 07/25/2024) for follow up with Dr Burton.] Procedures OFFICE VISIT Jihan Reid MD [address] [place] [phone] Phone: tel: Darron Burton MD [address] [address] Phone: tel: fax: Referral ID Status Reason Start Date Expiration Date V isits Requested Visits Authorized [id number] Authorized 07/27/2024 07/26/2025 6 6 Encounter Details Date Type Department Care Team (Late st Contact Info) Description 08/03/2024 9:50 AM EST Office Visit [facility] [address] [phone] Darron Burton MD [address] [address] 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 (CMS/HCC) (Primary Dx); Mixed hyperlipidemia; NSTEMI (non-ST elevated myocardial infarction) (CMS/HCC) Social History Tobacco Use Types Packs/Day Years Used Date Smoking Tobacco: Never Smokeless Tobacco: Never Alcohol Use Standard Drinks/Week Comments Never 0 (1 standard drink = 0.6 oz pur e alcohol) Sex and Gender Information Value Date Recorded Sex Assigned at Not on file Legal Sex Male 11:35 PM EST Gender Identity Not on file Sexual Orientation Not on file documented as of this encounter Last Filed Vital Signs Vital Sign Reading Time Taken Comments Blood Pressure 120/60 08/03/2024 9:48 AM EST Pulse 60 08/03/2024 9:48 AM EST Temperature - - Respiratory Rate - - Oxygen Saturation 98% 08/03/2024 9:48 AM EST Inhaled Oxygen Concentration - - Weight 77.1 kg (170 lb) 08/03/2024 9:48 AM EST Height 162.6 cm (5' 4 ) 08/03/2024 9:48 AM EST Body Mass Index 29.18 08/03/2024 9:48 AM EST documented in this encounter Progress Notes * Darron Burton MD - 08/03/2024 9:50 AM EST -Walt Carrasco is a 63 y.o. old male . Last office visit was with Kai in January 2024.His history is notable for a non-STEMI and CAD, hypertension and hyperlipidemia. The non-STEMI occurred in May 2022 with a stent to the OMB. See the note from a year ago for details of the coronary anatomy. A new nuclear stress test was done in September 2022 because of chest discomfort with exertion and he went 9 minutes and 48 seconds. Myocardial perfusion imaging was normal. When he saw Kai he was staying active. Walking regularly. ROS: He is doing beautifully. He exercises at home with light weights and some calisthenics. He goes for a 30-minute walk once a week. Review of Systems Cardiovascular: Negative for chest pain, claudication, dyspnea on exertion, irregular heartbeat, leg swelling, near-syncope, orthopnea, palpitations, paroxysmal nocturnal dyspnea and syncope. Respiratory: Negative for cough and shortness of breath. 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) 06/28/2022 Hyperlipidemia 06/28/2022 NSTEMI (non-ST elevated myocardial infarction) ([facility]) 06/28/2022 FAMILY HISTORY: Family History Problem Relation Name Age of Onset Coronary artery disease Father Coronary artery disease Mother SOCIAL HISTORY: Social History Tobacco Use Smoking status: Never Smokeless tobacco: Never Substance Use Topics Alcohol use: Never ACTIVE MEDICATIONS: Outpatient Medications Prior to Visit Medication Sig Dispense Refill atorvastatin (LIPITOR) 80 mg tablet Take 1 Tablet by mouth daily. clopidogreL (PLAVIX) 75 mg tablet Take 4 tablets one time load ONLY and thereafter 1 tablet daily 75mg 90 each 2 evolocumab (Repatha Syringe) 140 mg/mL syringe Inject into the skin every 14 days. ezetimibe (ZETIA) 10 mg tablet Take 1 Tablet by mouth daily. isosorbide mononitrate (IMDUR) 60 mg 24 hr tablet Take 1 tablet (60 mg total) by mouth 1 (one) timeeach day. Do not crush or chew. 90 each 0 losartan-hydroCHLOROthiazide (HYZAAR) 100-12.5 mg per tablet Take 1 tablet by mouth once daily metFORMIN (GLUCOPHAGE) 500 mg tablet Take 1 Tablet by mouth 2 times daily (with meals). metoprolol tartrate (LOPRESSOR) 25 mg tablet Take 0.5 tablets (12.5 mg total) by mouth 2 (two) times a day. 90 tablet 0 nitroglycerin (NITRODUR) 0.4 mg/hr Place 1 Patch onto the skin daily. Apply for no more than 12 hours in any 24 hour period. pioglitazone (ACTOS) 15 mg tablet Take 1 Tablet by mouth daily. simethicone (MYLICON,GAS-X) 180 mg capsule Take 1 Capsule by mouth 2 Times Daily. spironolactone (ALDACTONE) 25 mg tablet Take 1 Tablet by mouth daily. No facility-administered medications prior to visit. ALLERGIES: @ALL@ PHYSICAL EXAM: Blood pressure 120/60, pulse 60, height 1.626 m (64 ), weight 77.1 kg (170 lb), SpO2 98%. Physical Exam Constitutional: Appearance: Normal appearance. HENT: Head: Normocephalic. Eyes: Extraocular Movements: Extraocular movements intact. Pupils: Pupils are equal, round, and reactive to light. Neck: Vascular: No carotid bruit. Comments: No JVD or bruits Cardiovascular: Rate and Rhythm: Normal rate and regular rhythm. Pulses: Normal pulses. Heart sounds: Normal heart sounds. Pulmonary: Effort: Pulmonary effort is normal. Breath sounds: Normal breath sounds. Abdominal: General: Bowel sounds are normal. Palpations: Abdomen is soft. Musculoskeletal: Right lower leg: No edema. Left lower leg: No edema. Skin: General: Skin is warm and dry. Neurological: General: No focal deficit present. Psychiatric: Mood and Affect: Mood normal. EKG: His last EKG was a year ago. Left axis deviation. Sinus rhythm. TESTING: Appointment on 07/06/2024 Component Date Value Ref Range Status Sodium 07/06/2024 136 133 - 145 mmol/L Final Potassium 07/06/2024 3.7 3.5 - 5.5 mmol/L Final Chloride 07/06/2024 103 96 - 110 mmol/L Final CO2 07/06/2024 29 21 - 32 mmol/L Final Anion Gap 07/06/2024 4 3 - 11 Final Glucose 07/06/2024 154 (H) 70 - 100 mg/dL Final BUN 07/06/2024 13 5 - 25 mg/dL Final Creatinine 07/06/2024 1.22 0.70 - 1.30 mg/dL Final eGFR 07/06/2024 66 >=60 mL/min/1.73m2 Final Calculation based on the Chronic Kidney Disease Epidemiology Collaboration (CKD- EPI) equation refitwithout adjustment for race. BUN/Creatinine Ratio 07/06/2024 10.7 Final Calcium 07/06/2024 9.4 8.5 - 10.5 mg/dL Final AST (SGOT) 07/06/2024 25 10 - 42 unit/L Final ALT (SGPT) 07/06/2024 47 10 - 60 unit/L Final Alkaline Phosphatase 07/06/2024 74 42 - 121 unit/L Final Total Protein 07/06/2024 7.2 6.0 - 8.0 g/dL Final Albumin 07/06/2024 3.7 3.2 - 5.0 g/dL Final Total Bilirubin 07/06/2024 2.0 (H) 0.0 - 1.4 mg/dL Final Cholesterol 07/06/2024 213 (H) 0 - 200 mg/dL Final Triglycerides 07/06/2024 211 (H) 0 - 150 mg/dL Final HDL 07/06/2024 33 (L) >=40 mg/dL Final LDL Calculated 07/06/2024 138 (H) 0 - 100 mg/dL Final VLDL Cholesterol Fabio 07/06/2024 42.2 mg/dL Final Non HDL Chol. (LDL+VLDL) 07/06/2024 180 (H) <145 mg/dL Final Chol/HDL Ratio 07/06/2024 6.5 (H) 0.0 - 4.4 Final Abstract on 06/30/2024 Component Date Value Ref Range Status Annual BMP Blood Test 08/12/2022 Abstracted Final HM Colonoscopy 09/12/2023 No interpretation, Abstracted Final ASSESSMENT/PLAN: Problem List Items Addressed This Visit 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 (CMS/HCC) - Primary Hyperlipidemia NSTEMI (non-ST elevated myocardial infarction) (CMS/HCC) No orders of the defined types were placed in this encounter. The only problem is that his cholesterol remains high in spite of high-dose atorvastatin, Zetia andRepatha. I do not think there is anything else we could really do to bring it significantly down. At the moment I do not recall what it was like before we started these medications. I have encouragedhim to do the walking 4-5 times a week in addition to his exercises at home. He is no longer working so he has time. The [facility] team will continue to co-manage this patient following the plan of care as established by my initial visit and as per AHA guidelines for ongoing management and surveillance of CAD and hyperlipidemia . This will include medication titration, initiation of appropriate medications and further t itration, and diagnostic studies to manage this disease process. @ESIGNATURE@ documented in this encounter Plan of Treatment Not on file documented as of this encounter Visit Diagnoses Diagnosis 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 (CMS/HCC)- Primary Mixed hyperlipidemia NSTEMI (non-ST elevated myocardial infarction) (CMS/HCC) Acute myocardial infarction, subendocardial infarction, episode of care unspecified documented in this encounter Care Teams Java Project Manager Relationship Specialty Start Date End Date Jihan Reid MD [address] [place] [address] , [address] [place] [address] Physician Associ D/B/A: [facility] B[facility] PCP - General 03/15/21 documented as of this encounter
--- OUTSIDE RECORDS SUMMARY | 2024-08-31 17:44 | XMS_ITS | Clinical Summary ---
Author Organization [address] [place] [address] Address [address] [place] [address] Phone Care Team Providers Care Folder Machine Name Role Phone Jihan Reid MD Primary Care Provider [phone] Allergies No known active allergies Medications isosorbide mononitrate (IMDUR) 60 mg 24 hr tablet Take 1 tablet (60 mg total) by mouth 1 (one) time each day. Do not crush or chew. 90 each 5 09/28/19 25 Active atorvastatin (LIPITOR) 80 mg tablet Take 1 Tablet by mouth daily. 3 Active evolocumab (Repatha Syringe) 140 mg/mL syringe Inject into the skin every 14 days. Active ezetimibe (ZETIA) 10 mg tablet Take 1 Tablet by mouth daily. Active losartan-hydroCH LOROthiazide (HYZAAR) 100-12.5 mg per tablet Take 1 tablet by mouth once daily 4 Active metFORMIN (GLUCOPHAGE) 500 mg tablet Take 1 Tablet by mouth 2 times daily (with meals). Active nitroglycerin (NITRODUR) 0.4 mg/hr Place 1 Patch onto the skin daily. Apply for no more than 12 hours in any 24 hour period. Active pioglitazone (ACTOS) 15 mg tablet Take 1 Tablet by mouth daily. Active simethicone (MYLICON,GAS-X) 180 mg capsule Take 1 Capsule by mouth 2 Times Daily. Active spironolactone (ALDACTONE) 25 mg tablet Take 1 Tablet by mouth daily. Active metoprolol tartrate (LOPRESSOR) 25 mg tablet Take 0.5 tablets (12.5 mg total) by mouth 2 (two) times a day. 90 tablet 5 Active clopidogreL (PLAVIX) 75 mg tablet Take 4 tablets one time load ONLY and thereafter 1 tablet daily 75mg 90 each 2 5 Active Active Problems Problem Noted Date Diagnosed Date Chest pain 06/28/2022 Overview (06/30/2024): Last Assessment & Plan: No recurrent chest pain, pressure, or burning similar to previous anginal symptoms. Chronic hypertension 06/28/2022 Overview (06/30/2024): Last Assessment & Plan: Blood pressure is well-controlled on current medical therapies; continue losartan-hydrochlorothiazide, metoprolol, spironolactone, and isosorbide. The patient's most recent metabolic panel on file is from 06/17/2023 and was normal; the patient believes that he has had more recent labs completed through his PCPs office. We will attempt obtain these labs for review. 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 He is inquiring today if he needs to remain on Brilinta; given his residual disease noted on cath from 2021, we discussed that this may be the best course of action. He is tolerating Brilinta well and it isaffordable for him. He will continue with beta-blockade, long-acting nitrate, atorvastatin and ezetimibe, and Brilinta without change. I have reviewed with the patient the importance of a heart healthy lifestyle which includes eating a low-fat low-salt diet, getting regular exercise, maintaining a healthy weight, not smoking, and following up with routine medical care. Patient advised to seek emergency medical attention by calling 911 if they were to develop severe dyspnea, chest pain that did not resolve with rest, or if they were to faint. Hyperlipidemia 06/28/2022 Overview (06/30/2024): Last Assessment & Plan: No recent lipid panel on file but the patient states that he has had 1 completed recently at his PCPs office; we will attempt to obtain these results. In the interim, continue atorvastatin and ezetimibe. LDL goal for this patient who has a history of coronary artery disease as well as diabetes is less than 55. 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 ([facility]) (Primary Dx); Mixed hyperlipidemia; NSTEMI (non-ST elevated myocardial infarction) ([facility]) 07/22/2024 Telephone [facility] - [address] [place] [phone] Darron Burton MD 06/29/2024 Telephone [facility] - [address] [place] [phone] Yi Santos NP Walk-in (Refill of isosorbide) from Last 3 Months Surgical History Surgery Date Site/Laterality Comments CHOLECYSTECTOMY PROCEDURE: HISTORICAL CHOLECYSTECTOMY COLONOSCOPY PROCEDURE: HISTORICAL COLONOSCOPY Medical History Medical History Date Comments Type 2 diabetes mellitus ([facility]) DX:Type 2 diabetes mellitus ([facility]) Essential hypertension DX:Essent ial hypertension Hyperlipidemia DX:Hyperlipidemi a Family history of cardiovascular disease DX:Family history of cardiovascular disease Chronic ischemic heart disease D X:Chronic ischemic heart disease History of non-ST elevation myocardial infarction (NSTEMI) DX:History of non-ST elevati on myocardial infarction (NSTEMI) Rectal bleeding DX:Rectal bleedi ng Family History Medical History Relation Name Comments Coronary artery disease Father Coronary artery disease Mother Relation Name Status Comments Father Mother Social History Tobacco Use Types Packs/Day Years Used Date Smoking Tobacco: Never Smokeless Tobacco: Never Alcohol Use Standard Drinks/Week Comments Never 0 (1 standard drink = 0.6 oz pur e alcohol) Sex and Gender Information Value Date Recorded Sex Assigned at Not on file Legal Sex Male 11:35 PM EST Gender Identity Not on file Sexual Orientation Not on file Obstetrics History Last Filed Vital Signs Vital Sign Reading [...] Mass Index 29.18 08/03/2024 9:48 AM EST Plan of Treatment Health Maintenance Due Date Last Done Comments Diabetes: Annual Foot Exam 1968 Diabetes: Annual Retina Eye Exam 1968 DTaP,Tdap,and Td Vaccines (1 - Tdap) 1977 Pneumococcal Vaccine: 50+ Years (1 of 2 - PCV) 1977 Pneumococcal Vaccine: Pediatrics (0 to 5 Years) and At-Risk Patients (6 to 64 Years) (1 of 2 - PCV) 1977 Zoster Vaccines (1 of 2) 2008 RSV Immunization Patients 60 + Years Old (1 - Risk 60-74 years 1-dose series) 2018 Depression Screening 05/26/2022 Hepatitis C Screening 05/26/2022 Medicare Annual Wellness Visit 05/26/2022 Social Influencers of Health Screening 05/26/2022 Falls Risk Assessment 09/22/2023 COVID-19 Vaccine ( - 2023-2 5 season) 2024 Influenza Vaccine (#1) 2024 Diabetes: Annual Urine Albumin-Creatinine Ratio (uACR) 06/29/2024 Diabetes: Blood Sugar Contro l Test (HGBA1C) 06/29/2024 Diabetes: Annual GFR (Glomerular Filtration Rate) 07/06/2025 07/06/2024, 08/12/2022 Hypertension/CHF/CAD Annual BMP Blood Test 07/06/2025 07/06/2024, 08/12/2022 Cholesterol Screening (Lipid Panel) 07/06/2029 07/06/2024 Colorectal Cancer Screening: Colonoscopy 09/11/2033 09/12/2023 HIB Vaccines Aged Out No longer eligi ble based on patient's age to complete this topic HPV Vaccines Aged Out No longer eligi ble based on patient's age to complete this topic Hepatitis A Vaccines Aged Out No long er eligible based on patient's age to complete this topic Hepatitis B Vaccines Aged Out No long er eligible based on patient's age to complete this topic IPV Vaccines Aged Out No longer eligi ble based on patient's age to complete this topic MMR Vaccines Aged Out No longer eligi ble based on patient's age to complete this topic Meningococcal ACWY Vaccine Aged Out N o longer eligible based on patient's age to complete this topic Meningococcal B Vacine Aged Out No lo nger eligible based on patient's age to complete this topic RSV Immunization Patients Under 20 months Aged Out No longer eligible b ased on patient's age to complete this topic Varicella Vaccines Aged Out No longer eligible based on patient's age to complete this topic Procedures Procedure Name Priority Date/Time Associated Diagnosis Comments LIPID PANEL WITH REFLEX TO DIRECT LDL Routine 07/06/2024 8:20 AM EST Hyperlipidemia, unspecified hyperlipidemia type COMPREHENSIVE METABOLIC PANEL Routine 07/06/2024 8:20 AM EST Chronic hypertension HM COLONOSCOPY Routine 09/12/2023 from Last 3 Months or Most Recently Relevant to Health Maintenance Results * (ABNORMAL) Lipid panel with reflex to direct LDL (07/06/2024 8:20 AM EST) Cholesterol 213(H) 0 - 200 mg/dL LAB CHEMISTRY METHOD 07/06/2024 9:48 AM EST [facility] Triglycerides 211(H) 0 - 150 mg/dL LAB CHEMISTRY METHOD 07/06/2024 9:48 AM EST [facility] HDL 33(L) >=40 mg/dL LAB CHEMISTRY METHOD 07/06/2024 9:48 AM [facility] LDL Calculated 138(H) 0 - 100 mg/dL LAB CHEMISTRY METHOD 07/06/2024 9:48 AM [facility] VLDL Cholesterol Fabio 42.2 mg/dL LAB CHEMISTRY METHOD 07/06/2024 9:48 AM [facility] Non HDL Chol. (LDL+VLDL) 180(H) <145 mg/dL LAB CHEMISTRY METHOD 07/06/2024 9:48 AM [facility] Chol/HDL Ratio 6.5(H) 0.0 - 4.4 LAB CHEMISTRY METHOD 07/06/2024 9:48 AM [facility] Blood Venous blood specimen / Unknown Venipuncture / Unknown 07/06/2024 8:20 AM EST 07/06/2024 9:08 AM EST us Darron Burton MD LAB BLOOD ORDERABLES Final Resu lt [facility] [address] [place] [address], * (ABNORMAL) Comprehensive metabolic panel (07/06/2024 8:20 AM EST) Sodium 136 133 - 145 mmol/L LAB CHEMISTRY METHOD 07/06/2024 9:47 AM [facility] Potassium 3.7 3.5 - 5.5 mmol/L LAB CHEMISTRY METHOD 07/06/2024 9:47 AM [facility] Chloride 103 96 - 110 mmol/L LAB CHEMISTRY METHOD 07/06/2024 9:47 AM [facility] CO2 29 21 - 32 mmol/L LAB CHEMISTRY METHOD 07/06/2024 9:47 AM [facility] Anion Gap 4 3 - 11 LAB CHEMISTRY METHOD 07/06/2024 9:47 AM [facility] Glucose 154(H) 70 - 100 mg/dL LAB CHEMISTRY METHOD 07/06/2024 9:47 AM [facility] BUN 13 5 - 25 mg/dL LAB CHEMISTRY METHOD 07/06/2024 9:47 AM [facility] Creatinine 1.22 0.70 - 1.30 mg/dL LAB CHEMISTRY METHOD 07/06/2024 9:47 AM [facility] eGFR 66 >=60 mL/min/1. 73m2 LAB CHEMISTRY METHOD 07/06/2024 9:47 AM [facility] Comment:Calculation based on the??Chronic Kidney Disease Epidemiology Collaboration (CKD-EPI) equation refit??without adjustment for race. BUN/Creatinine Ratio 10.7 LAB CHEMISTRY METHOD 07/06/2024 9:47 AM [facility] Calcium 9.4 8.5 - 10.5 mg/dL LAB CHEMISTRY METHOD 07/06/2024 9:47 AM [facility] AST (SGOT) 25 10 - 42 unit/L LAB CHEMISTRY METHOD 07/06/2024 9:47 AM [facility] ALT (SGPT) 47 10 - 60 unit/L LAB CHEMISTRY METHOD 07/06/2024 9:47 AM [facility] Alkaline Phosphatase 74 42 - 121 unit/L LAB CHEMISTRY METHOD 07/06/2024 9:47 AM [facility] Total Protein 7.2 6.0 - 8.0 g/dL LAB CHEMISTRY METHOD 07/06/2024 9:47 AM [facility] Albumin 3.7 3.2 - 5.0 g/dL LAB CHEMISTRY METHOD 07/06/2024 9:47 AM [facility] Total Bilirubin 2.0(H) 0.0 - 1.4 mg/dL LAB CHEMISTRY METHOD 07/06/2024 9:47 AM [facility] Blood Venous blood specimen / Unknown Venipuncture / Unknown 07/06/2024 8:20 AM EST 07/06/2024 9:08 AM EST us Darron Burton MD LAB BLOOD ORDERABLES Final Resu lt [facility] [address] [place] [address], * Colonoscopy (09/12/2023) Colonoscopy No interpretation , Abstracted Anatomical Region Laterality Modality Other us Historical Provider HEALTH MAINTENANCE Final Result from Last 3 Months or Most Recently Relevant to Health Maintenance Insurance [employer] Care Teams Folder Machine Relationship Specialty Start Date End Date Jihan Reid MD [address] [facility] , [address] [facility] BILL Nieto PCP - General 03/15/21
--- OUTSIDE RECORDS SUMMARY | 2024-08-31 17:44 | XMS_ITS | Clinical Summary ---
Author Organization [facility] Address [address] [facility] [address] [place] [address] Phone Care Team Providers Care Design Printer Balloon Name Role Phone Jihan Ceballos MD Primary Care Provider [phone] Allergies Active Allergy Reactions Criticality Noted Date Comments Vitamin C-Vitamin E-Panthenol Other (see comments) 11/26/2021 Medications aspirin ([facility]) 81 MG EC tablet Take 1 tablet by mouth 1 (one) time each day Active atorvastatin (LIPITOR) 80 MG tablet Take 80 mg by mouth 1 (one) time each day 11/15/2021 Active Vitamin D, Cholecalciferol, 50 MCG (1999) capsule Take 1 capsule by mouth 1 (one) time each day 08/31/2021 Active pioglitazone (ACTOS) 15 MG tablet Take 15 mg by mouth 1 (one) time each day 10/10/2021 Active metFORMIN (GLUCOPHAGE) 1000 MG tablet Take 1 tablet by mouth in the morning and 1 tablet in the evening. Active Metoprolol Succinate 25 MG capsule extended-release 24 hour sprinkle Take 12.5 mg by mouth 1 (one) time each day Active isosorbide mononitrate (IMDUR) 30 MG 24 hr tablet Take 30 mg by mouth 1 (one) time each day Do not crush or chew. Active ticagrelor (BRILINTA) 90 MG tablet Take 90 mg by mouth in the morning and 90 mg in the evening. Active ezetimibe (ZETIA) 10 MG tablet Take 10 mg by mouth 1 (one) time each day Active losartan-hydroCH LOROthiazide (HYZAAR) 100-12.5 MG per tablet Take 1 tablet by mouth 1 (one) time each day Active spironolactone (ALDACTONE) 25 MG tablet Take 25 mg by mouth 1 (one) time each day Active Active Problems Problem Noted Date Diagnosed Date Type 2 diabetes mellitus with diabetic nephropat hy 06/20/2022 Hypertension 06/20/2022 Essential hypertension 11/26/2021 Hypertensive disorder 11/26/2021 Proteinuria 11/26/2021 Family History Medical History Relation Comments Diabetes Mother Hypertension Mother Relation Status Comments Mother Social History Tobacco Use Types Packs/Day Years Used Date Smoking Tobacco: Never Smokeless Tobacco: Never Tobacco Cessation:Counseling Given: Not Answered Sex and Gender Information Value Date Recorded Sex Assigned at Not on file Legal Sex Male 5:21 PM EST Gender Identity Not on file Sexual Orientation Not on file Last Filed Vital Signs Vital Sign Reading Time Taken Comments Blood Pressure 104/74 12/19/2022 3:18 PM EDT Pulse 64 12/19/2022 3:18 PM EDT Temperature - - Respiratory Rate - - Oxygen Saturation 98% 06/20/2022 4:17 PM EST Inhaled Oxygen Concentration - - Weight 74.7 kg (164 lb 9.6 oz) 12/19/2022 3:18 P M EDT Height - - Body Mass Index - - Plan of Treatment Health Maintenance Due Date Last Done Comments Pneumococcal Vaccine: 65+ Ye ars (1 of 2 - PCV) 1964 Pneumococcal Vaccine: Pediat rics (0 to 5 Years) and At-Risk Patients (6 to 64 Years) (1 of 2 - PCV) 1966 Colorectal Cancer Screening: Annual FOBT 09/22/2007 Colorectal Cancer Screening: Colonoscopy 09/22/2007 Colorectal Cancer Screening: Sigmoidoscopy 09/22/2007 Diabetes: Hemoglobin A1C 06/20/2022 Diabetes: Ophthalmology Exam 06/20/2022 Diabetes: Pedal Pulse Checked 06/20/2022 Diabetes: Sensory Foot Exam 06/20/2022 Diabetes: Visual Foot Exam 06/20/2022 Influenza Vaccine (#1) 2024 Hepatitis B Vaccine Aged Out No longe r eligible based on patient's age to complete this topic Insurance [place] [address] [place] [address] MEDICAID Care Teams Design Printer Balloon Relationship Specialty Start Date End Date Jihan Ceballos MD [address] [place] [address] PCP - General Internal Medicine 08/22/21
== END 2024-08-31 14:27 | disposition home or self-care (01) ==
LOC: HO.LAB 14:26
PROVIDERS: PCP Internal Medicine; Visit Provider Internal Medicine Nephrology
DX: N18.31 Chronic kidney disease, stage 3a (principal)
CPT/HCPCS: 36415; 80051; 82565; 84520

== ENCOUNTER 2024-09-01 09:08 | Outpatient (AMB) | payer MEDICARE, SELFPAY ==
--- NOTE | 2024-09-01 09:34 | HO.NEPHOV_ITS ---
Vital Signs 09/01/24 09:37 Height 5 ft 4 in Weight 176 lb 6 oz BMI 30.3 BP 90/60 Blood Pressure Location Lt brachial Position Sitting Pulse 61 Pulse Source Pulse Oximeter Pulse Oximetry (%) 95 Oxygen Delivery Method Room Air Intake Visit Reasons: CKD [id number] Wine And Spirits Clerk Required: Yes Wine And Spirits Clerk Language: Reinsurance Accountant Services: Wine And Spirits Clerk Present Wine And Spirits Clerk Name: José Antonio [id number] Accompanied by: Self / Same As Patient Allergies vitamin c lotion Allergy (Intermediate, Uncoded 05/10/24 08:42) rash HPI Comments Details: Walt earl is a 63-year-old male with diabetes mellitus type 2, hypertension and hyperlipidemia. His hemoglobin A1c has been within goal. His fasting blood sugars are good. His blood pressure has been stable . He has no orthostatic symptoms. He is compliant with low-sodium diet and medications. He avoids nonsteroidal anti-inflammatories. He denies any chest pain , shortness of breath, paroxysmal nocturnal dyspnea, orthopnea, pedal edema or urinary symptoms. [facility] Medical History Elevated hemoglobin Daytime sleepiness Hypovitaminosis D Familial hypercholesterolemia BPPV (benign paroxysmal positional vertigo) NAFLD (nonalcoholic fatty liver disease) Essential hypertension GERD (gastroesophageal reflux disease) Hyperbilirubinemia Diabetes mellitus Surgical History History of heart artery stent History of colonoscopy History of cardiac catheterization Family History Father No problems noted. 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 Current occupational exposures/hazards: No Cognitive needs: No Hearing needs: No Vision needs: No Review of Systems Const All systems reviewed & are unremarkable except as noted in HPI and below Physical Exam Vital Signs: Last Vital Signs BP 80/60 L 09/01/24 09:37 BMI result Body Mass Index 30.3 Const General: comfortable and no acute distress Orientation/consciousness: patient oriented x3 HEENT Head: Yes normocephalic Mouth: Normal oral and palatal mucosa present Eyes EOM: EOMs intact bilaterally Neck Neck: Yes supple Resp Auscultation: clear to auscultation bilaterally Cardio Jugular venous distension: no JVD Rate: regular rate GI Palpation (GI): Soft to palpation Auscultation: normal bowel sounds Skin General skin exam: no rashes or lesions noted Neuro General: patient oriented x3 and moves all extremities Extrem General: Yes no pedal edema Results Reviewed Nephrology Results: Hgb 15.8 g/dl (14.0-18.0) 05/10/24 WBC 7.9 X10*3/uL (4.8-10.8) 05/10/24 Plt Count 216 X10*3/uL (160-400) 05/10/24 Sodium 138 mmol/L (135-145) 08/31/24 Potassium 4.5 mmol/L (3.3-5.1) 08/31/24 Chloride 105 mmol/L (96-108) 08/31/24 Carbon Dioxide 27 mmol/L (22-29) 08/31/24 BUN 18 mg/dL (9-16) H 08/31/24 Creatinine 0.97 mg/dL (0.5-1.4) 08/31/24 Calcium 10.3 mg/dL (8.4-10.2) H 05/10/24 Urine Protein Negative mg/dL (Neg-Trace) 08/08/22 Urine Creatinine 258.00 mg/dL 01/13/24 Assessment & Plan Assessment & Plan (1) CKD stage 3a, GFR 45-59 ml/min: Code(s): N18.31 - Chronic kidney disease, stage 3a Category: Medical (2) Hypercalcemia: Code(s): E83.52 - Hypercalcemia Category: Medical (3) Essential hypertension: Code(s): I10 - Essential (primary) hypertension Category: Medical Plan Walt has longstanding hypertension. His blood pressure is at goal. He has diabetes which is well controlled. He is tolerating angiotensin receptor deepti. His serum potassium and renal functions are normal. He does not have any proteinuria or retinopathy. He has no orthostatic symptoms. He maintains good hydration and keep up with the low-sodium diet. I did not make any medication changes today but shall consider D/Isrrael HCTZ after W/U for hypercalcemia. Follow-up lab work ordered. Answered all questions. Follow-up appointment given Orders: Orders Parathyroid Hormone Intact 6 Months E83.52 - Hypercalcemia, I10 - Essential (primary) hypertension, N18.31 - Chronic kidney disease, stage 3a Vitamin D 1,25 dihydroxy 6 Months E83.52 - Hypercalcemia, I10 - Essential (primary) hypertension, N18.31 - Chronic kidney disease, stage 3a Vitamin D 25-OH Total 6 Months E83.52 - Hypercalcemia, I10 - Essential (primary) hypertension, N18.31 - Chronic kidney disease, stage 3a Immunofixation Pnl, Serum 6 Months E83.52 - Hypercalcemia, I10 - Essential (primary) hypertension, N18.31 - Chronic kidney disease, stage 3a Creatinine 6 Months E83.52 - Hypercalcemia, I10 - Essential (primary) hypertension, N18.31 - Chronic kidney disease, stage 3a Blood Urea Nitrogen 6 Months E83.52 - Hypercalcemia, I10 - Essential (primary) hypertension, N18.31 - Chronic kidney disease, stage 3a Electrolytes 6 Months E83.52 - Hypercalcemia, I10 - Essential (primary) hypertension, N18.31 - Chronic kidney disease, stage 3a Protein Creatinine Ratio, Ur 6 Months E83.52 - Hypercalcemia, I10 - Essential (primary) hypertension, N18.31 - Chronic kidney disease, stage 3a Calcium 6 Months E83.52 - Hypercalcemia, I10 - Essential (primary) hypertension, N18.31 - Chronic kidney disease, stage 3a Coding Level of Care Code Est Pt Level 4 (90294) Diagnoses CKD stage 3a, GFR 45-59 ml/min N18.31 Hypercalcemia E83.52 Essential hypertension I10
[2024-09-01 09:37] VITALS: BP 90/60; PULSE 61; O2SAT 95; BMI 30.3
--- OUTSIDE RECORDS SUMMARY | 2024-09-01 09:45 | XMS_ITS | Clinical Summary ---
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 ([facility]/HCC) (Primary Dx); Mixed hyperlipidemia; NSTEMI (non-ST elevated myocardial infarction) ([facility]) 07/22/2024 Telephone [facility] - [address] [place] [phone] Darron Burton MD 06/29/2024 Telephone [facility] - [address] [place] [phone] Yi Santos NP Walk-in (Refill of isosorbide) from Last 3 Months Surgical History Surgery Date Site/Laterality Comments CHOLECYSTECTOMY PROCEDURE: HISTORICAL CHOLECYSTECTOMY COLONOSCOPY PROCEDURE: HISTORICAL COLONOSCOPY Medical History Medical History Date Comments Type 2 diabetes mellitus ([facility]) DX:Type 2 diabetes mellitus ([facility]) Essential hypertension DX:Essent ial hypertension Hyperlipidemia DX:Hyperlipidemi [...] LAB CHEMISTRY METHOD 07/06/2024 9:48 AM EST [facility] Triglycerides 211(H) 0 - 150 mg/dL LAB CHEMISTRY METHOD 07/06/2024 9:48 AM EST [facility] HDL 33(L) >=40 mg/dL LAB CHEMISTRY METHOD 07/06/2024 9:48 AM [facility] LDL Calculated 138(H) 0 - 100 mg/dL LAB CHEMISTRY METHOD 07/06/2024 9:48 AM [facility] VLDL Cholesterol Fabio 42.2 mg/dL LAB CHEMISTRY METHOD 07/06/2024 9:48 AM [facility] Non HDL Chol. (LDL+VLDL) 180(H) <145 mg/dL LAB CHEMISTRY METHOD 07/06/2024 9:48 AM [facility] Chol/HDL Ratio 6.5(H) 0.0 - 4.4 LAB CHEMISTRY METHOD 07/06/2024 9:48 AM [facility] Blood Venous blood specimen / Unknown Venipuncture / Unknown 07/06/2024 8:20 AM EST 07/06/2024 9:08 AM EST us Darron Burton MD LAB BLOOD ORDERABLES Final Resu lt [facility] [address] [place] [address], * (ABNORMAL) Comprehensive metabolic panel (07/06/2024 8:20 AM EST) Sodium 136 133 - 145 mmol/L LAB CHEMISTRY METHOD 07/06/2024 9:47 AM [facility] Potassium 3.7 3.5 - 5.5 mmol/L LAB CHEMISTRY METHOD 07/06/2024 9:47 AM [facility] Chloride 103 96 - 110 mmol/L LAB CHEMISTRY METHOD 07/06/2024 9:47 AM [facility] CO2 29 21 - 32 mmol/L LAB CHEMISTRY METHOD 07/06/2024 9:47 AM [facility] Anion Gap 4 3 - 11 LAB CHEMISTRY METHOD 07/06/2024 9:47 AM [facility] Glucose 154(H) 70 - 100 mg/dL LAB CHEMISTRY METHOD 07/06/2024 9:47 AM [facility] BUN 13 5 - 25 mg/dL LAB CHEMISTRY METHOD 07/06/2024 9:47 AM [facility] Creatinine 1.22 0.70 - 1.30 mg/dL LAB CHEMISTRY METHOD 07/06/2024 9:47 AM [facility] eGFR 66 >=60 mL/min/1. 73m2 LAB CHEMISTRY METHOD 07/06/2024 9:47 AM [facility] Comment:Calculation based on the??Chronic Kidney Disease Epidemiology Collaboration (CKD-EPI) equation refit??without adjustment for race. BUN/Creatinine Ratio 10.7 LAB CHEMISTRY METHOD 07/06/2024 9:47 AM [facility] Calcium 9.4 8.5 - 10.5 mg/dL LAB CHEMISTRY METHOD 07/06/2024 9:47 AM [facility] AST (SGOT) 25 10 - 42 unit/L LAB CHEMISTRY METHOD 07/06/2024 9:47 AM [facility] ALT (SGPT) 47 10 - 60 unit/L LAB CHEMISTRY METHOD 07/06/2024 9:47 AM [facility] Alkaline Phosphatase 74 42 - 121 unit/L LAB CHEMISTRY METHOD 07/06/2024 9:47 AM [facility] Total Protein 7.2 6.0 - 8.0 g/dL LAB CHEMISTRY METHOD 07/06/2024 9:47 AM [facility] Albumin 3.7 3.2 - 5.0 g/dL LAB CHEMISTRY METHOD 07/06/2024 9:47 AM [facility] Total Bilirubin 2.0(H) 0.0 - 1.4 mg/dL LAB CHEMISTRY METHOD 07/06/2024 9:47 AM [facility] Blood Venous blood specimen / Unknown Venipuncture / Unknown 07/06/2024 8:20 AM EST 07/06/2024 9:08 AM EST us Darron Burton MD LAB BLOOD ORDERABLES Final Resu lt [facility] [address] [place] [address], * Colonoscopy (09/12/2023) Colonoscopy No interpretation , Abstracted Anatomical Region Laterality Modality Other us Historical Provider HEALTH MAINTENANCE Final Result from Last 3 Months or Most Recently Relevant to Health Maintenance Insurance [employer] Care Teams Routing Clerk Relationship Specialty Start Date End Date Jihan Reid MD [address] [facility] , [address] [facility] Physician Associ D/B/A: [facility] BILL Nieto PCP - General 03/15/21
--- OUTSIDE RECORDS SUMMARY | 2024-09-01 09:45 | XMS_ITS | Encounter Summary ---
Author Organization [facility] Address [address] [place] [phone] Care Team Providers Care Cardiothoracic Physiotherapist Name Role Phone Jihan Reid MD Primary Care Provider [phone] Reason for Visit * Reason Comments Follow-up 6 mo * Other Medical (Routine) - Authorized Specialty Diagnoses / Procedures Referred By Ralph t Referred To Contact Cardiology Diagnoses [per KAI, Return in about 6 months (around 07/25/2024) for follow up with Dr Burton.] Procedures OFFICE VISIT Jihan Reid MD [address] [place] [phone] Phone: tel: Darron Burton MD [address] [address] Phone: tel: fax: Referral ID Status Reason Start Date Expiration Date V isits Requested Visits Authorized [id number] Authorized 07/27/2024 07/26/2025 6 6 Encounter Details Date Type Department Care Team (Late st Contact Info) Description 08/03/2024 9:50 AM EST Office Visit [facility] [address] [phone] Darron Burton MD [address] [address] Coronary artery disease of [place] of [place] artery of [place] of [place] heart with stable angina pectoris (CMS/HCC) (Primary [...] Chronic hypertension 06/28/2022 Coronary artery disease of [place] of [place] artery of [place] of [place] heart with stable angina pectoris ([facility]) 06/28/2022 Hyperlipidemia 06/28/2022 NSTEMI (non-ST elevated myocardial infarction) ([facility]) 06/28/2022 FAMILY HISTORY: Family History Problem Relation [...] Addressed This Visit Coronary artery disease of [place] of [place] artery of [place] of [place] heart with stable angina pectoris (CMS/HCC) - [...] Visit Diagnoses Diagnosis Coronary artery disease of [place] of [place] artery of [place] of [place] heart with stable angina pectoris (CMS/HCC)- Primary Mixed hyperlipidemia NSTEMI (non-ST elevated myocardial infarction) (CMS/HCC) Acute myocardial infarction, subendocardial infarction, episode of care unspecified documented in this encounter Care Teams Cardiothoracic Physiotherapist Relationship Specialty Start Date End Date Jihan Reid MD [address] [place] [address] , [address] [place] [address] Physician Associ D/B/A: [facility] BILL Nieto PCP - General 03/15/21 documented as of this encounter
--- OUTSIDE RECORDS SUMMARY | 2024-09-01 09:45 | XMS_ITS | Clinical Summary ---
Author Organization [facility] Address [address] [facility] [address] [place] [address] Phone Care Team Providers Care Raw Finish Mill Operator Name Role Phone Jihan Ceballos MD Primary Care Provider [phone] Allergies Active Allergy Reactions Criticality Noted Date Comments Vitamin C-Vitamin E-Panthenol Other (see comments) 11/26/2021 Medications aspirin ([facility]) 81 MG EC tablet Take 1 [...] age to complete this topic Insurance [place] [address] [place] [address] [place] [address] Care Teams Raw Finish Mill Operator Relationship Specialty Start Date End Date Jihan Ceballos MD [address] [facility] [address] [place] [address] PCP - General Internal Medicine 08/22/21
== END 2024-09-01 09:46 | disposition home or self-care (01) ==
LOC: HO.HKA 09:08
PROVIDERS: PCP Internal Medicine; Visit Provider Internal Medicine Nephrology
DX: N18.31 Chronic kidney disease, stage 3a (principal); E83.52 Hypercalcemia; I10 Essential (primary) hypertension
CPT/HCPCS: 99214

== ENCOUNTER → 2024-09-01 09:08 | Outpatient (BNVA) | payer MEDICARE, SELFPAY | PROVIDERS: PCP Internal Medicine; Visit Provider Internal Medicine Nephrology | DX: I12.9 Hypertensive chronic kidney disease with stage 1 through stage 4 chronic kidney disease, or unspecified chronic kidney disease (principal); N18.31 Chronic kidney disease, stage 3a; E83.52 Hypercalcemia | CPT/HCPCS: 99212 ==

== ENCOUNTER 2024-09-14 12:45 | Outpatient (AMB) | payer MEDICARE, SELFPAY ==
--- NOTE | 2024-09-14 12:50 | MHC.PC.OV ---
Vital Signs 09/14/24 12:51 Height 5 ft 4 in Weight 171 lb BMI 29.3 BP 112/76 Blood Pressure Location Lt brachial Position Sitting Intake Visit Reasons: Discuss [facility] paperwork Fold Skiver Required: Yes Fold Skiver Language: Manager Of International Name: Jihan Reid MD Information Interpreted: non-clinical & clinical Accompanied by: Self / Same As Patient Allergies vitamin c lotion Allergy (Intermediate, Uncoded 09/14/24 13:13) rash Medication List - Last Reconciled 09/14/24 by Jihan Reid MD aspirin 81 mg PO DAILY atorvastatin 80 mg PO DAILY 90 days cholecalciferol (vitamin D3) 25 mcg PO DAILY 90 days clopidogrel 75 mg PO DAILY evolocumab (Repatha SureClick) 140 mg subcut Q2W 30 days ezetimibe 10 mg PO DAILY 90 days isosorbide mononitrate ER 60 mg PO DAILY losartan-hydrochlorothiazide 100-12.5 mg 1 tab PO DAILY metformin 500 mg (1/2 x 1,000 mg) PO BID 90 days metoprolol tartrate 12.5 mg PO BID pioglitazone 30 mg PO DAILY 90 days simethicone 180 mg PO BID spironolactone 25 mg PO DAILY Tobacco use date assessed: 09/14/24 Fall risk assessment: No Falls in past year Last assessed Fall Risk: 09/14/24 Dental Screening Dental Screen Date: 09/14/24 Did you have a dental visit in the last 12 months?: Yes Did you have a dental problem in the last 6 months where you did not have access to dental care?: No Was dental information given to patient?: Patient has dentist HPI HPI Comments History of Present Illness Details The patient is a 63-year-old male presenting with a follow-up for diabetes, hypercholesterolemia, hypertension, and chronic kidney disease management. He has diabetes mellitus, presently controlled with an A1c of 6.8%. Discussion highlighted the importance of maintaining his LDL cholesterol below 70 mg/dL due to concurrent hypertension and diabetes. Previous renal function tests were reassuring with a GFR above 60 mL/min/1.73m?, associated with his stage 3 chronic kidney disease. The patient has a coronary artery disease history and underwent PCI with stent, currently on aspirin for secondary prophylaxis. He does not consume alcohol and has no smoking history. There are no reported symptoms of depression or anxiety. Current prescribed medications include atorvastatin, metformin, and losartan with hydrochlorothiazide among others. [facility] Medical History Elevated hemoglobin Daytime sleepiness Hypovitaminosis D Familial hypercholesterolemia BPPV (benign paroxysmal positional vertigo) NAFLD (nonalcoholic fatty liver disease) Essential hypertension GERD (gastroesophageal reflux disease) Hyperbilirubinemia Diabetes mellitus Surgical History History of heart artery stent History of colonoscopy History of cardiac catheterization Family History Father No problems noted. 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 1. Little interest or pleasure in doing things: not at all 2. Feeling down, depressed, or hopeless: not at all 3. Trouble falling or staying asleep, or sleeping too much: not at all 4. Feeling tired or having little energy: not at all 5. Poor appetite or overeating: not at all 6. Feeling bad about yourself - or that you are a failure or have let yourself or your family down: not at all 7. Trouble concentrating on things, such as reading the newspaper or watching television: not at all 8. Moving or speaking so slowly that other people could have noticed. Or the opposite - being so fidgety or restless that you have been moving around a lot more than usual: not at all 9. Thoughts that you would be better off or of hurting yourself in some way: not at all Total score: 0 Depression Screening Interpretation: Negative Depression Screening Done: Yes 65070 - PHQ-9 Billing: Yes Source: Developed by Drs. Brendan Duncan, Juan Carlos Jolly and colleagues, with an educational ramona from [employer]. Thrive Questionnaire Date Thrive assessed: 09/14/24 I am a: Patient What is your living situation today?: I have a steady place to live Within the past 12 months, did the food you bought not last and you didn't have the money to get more?: Never true Within the past 12 months, did you worry whether your food would run out before you got money to buy more?: Never true Do you have trouble paying for medicines?: No Do you have trouble getting transportation to medical appointments?: No Do you have trouble paying your heating and electricity bill?: No Do you have trouble taking care of your child, family member or friend?: No Do you have trouble with day-to-day activities such as bathing, preparing meals, shopping, managing finances, etc.?: No Are you currently unemployed and looking for a job?: No Are you interested in more education?: No Please select the resources that you would like help with: None Currently or been in a relationship where the following occur: No concerns reported THRIVE Score: 0 AUDIT C Alcohol Use Questionnaire (AUDIT-C) 1. How often do you have a drink containing alcohol?: Never Total Score: 0 Score Reviewed/Action Taken: No LULU-7 AMB Questionnaire LULU-7 Date LULU - 7 assessed: 09/14/24 Feeling nervous, anxious, or on edge: 0 = Not at all Not being able to stop or control worryin = Not at all Worrying too much about different things: 0 = Not at all Trouble relaxin = Not at all Being so restless that it is hard to sit still: 0 = Not at all Becoming easily annoyed or irritable: 0 = Not at all Feeling afraid as if something awful might happen: 0 = Not at all Total LULU-7 score (0-4 normal; 5-9 mild; 10-14 moderate; 15-21 severe): 0 Source: Developed by Trish Avery Kurt Kroenke and colleagues, with an educational ramona from [employer]. LULU-7 Assessment Billing LULU-7 Assessment Tool: LULU-7 Assessment 77641 Review of Systems Const All systems reviewed & are unremarkable except as noted in HPI and below Card Denies chest pain at rest, Denies chest pain with activity, Denies edema, Denies irregular heart rhythm, Denies claudication, Denies dyspnea, Denies dyspnea on exertion, Denies orthopnea, Denies paroxysmal nocturnal dyspnea and Denies slow heart rate Resp Denies cough, Denies dyspnea and Denies dyspnea on exertion GI Denies abdominal pain, Denies change in bowel habits, Denies excessive flatus, Denies nausea and Denies vomiting Denies urinary hesitancy, Denies urinary incontinence and Denies urinary urgency Musc Denies atrophy, Denies deformity and Denies limited range of motion Skin/Breast Denies bleeding lesions, Denies changing lesions and Denies rash Physical exam (Primary Care) Vital Signs: Last Vital Signs BP 112/76 09/14/24 12:51 BMI result Body Mass Index 29.3 Tobacco/Smoking Status: Tobacco use Status Tobacco use date assessed 09/14/24 09/14/24 13:07 Patient Tobacco Use Status Never used Tobacco 09/14/24 12:59 e-Cigarette/Vaping Use Never Used 09/14/24 12:59 PHQ-9: PHQ-9 Score PHQ-9: Total score 0 09/14/24 12:59 Depression Screening Interpretation: Negative Thrive Assessment: Date of Thrive Assessment Date Thrive assessed 09/14/24 09/14/24 12:59 Currently or been in a relationship where the following occur: No concerns reported Resp Effort & Inspection: normal respiratory effort Auscultation: clear to auscultation bilaterally Cardio Jugular venous distension: no JVD Rate: regular rate Rhythm: regular rhythm Heart sounds: S1 normal heart sound present and S2 normal heart sound present Extrem General: Yes full ROM Results AMB Hemoglobin A1c AMB Hemoglobin A1c 6.8 % Last Edit by EMILY Serrano on 09/14/24 13:05 Results Reviewed Results Reviewed: Laboratory Last Values Hgb A1c (Clinic) 6.8 % (4.0-6.0) H 09/14/24 12:49 Coding Level of Care Code Est Pt Level 4 (57158) Complex EM visit Add On G2211 Diagnoses Type 2 diabetes mellitus with microalbuminuria, without long-term current use of insulin E11.29; R80.9 Diabetes mellitus type: type 2 Diabetes mellitus intermodal dispatcher insulin use: without intermodal dispatcher use Diabetes mellitus complication status: with kidney complications Diabetes mellitus complication detail: with microalbuminuria CKD stage 3a, GFR 45-59 ml/min N18.31 Hyperlipidemia LDL goal <70 E78.5 Chronic GERD K21.9 Essential hypertension I10 NSTEMI (non-ST elevated myocardial infarction) I21.4 Additional Codes PHQ-9 - 21987 - PHQ-9 Billing: Yes ([id number]) LULU-7 Assessment Billing - LULU-7 Assessment Tool: ULLU-7 Assessment 27918 ([id number]) Time Spent (min) 22 Assessment & Plan Assessment & Plan (1) Diabetes mellitus: Code(s): E11.9 - Type 2 diabetes mellitus without complications Category: Medical Qualifiers: Diabetes mellitus type: type 2 Diabetes mellitus intermodal dispatcher insulin use: without intermodal dispatcher use Diabetes mellitus complication status: with kidney complications Diabetes mellitus complication detail: with microalbuminuria Qualified Code(s): E11.29 - Type 2 diabetes mellitus with other diabetic kidney complication; R80.9 - Proteinuria, unspecified (2) CKD stage 3a, GFR 45-59 ml/min: Code(s): N18.31 - Chronic kidney disease, stage 3a Category: Medical (3) Hyperlipidemia LDL goal <70: Code(s): E78.5 - Hyperlipidemia, unspecified Category: Medical (4) Chronic GERD: Code(s): K21.9 - Gastro-esophageal reflux disease without esophagitis Category: Medical (5) Essential hypertension: Code(s): I10 - Essential (primary) hypertension Category: Medical (6) NSTEMI (non-ST elevated myocardial infarction): Comment: 2021 Code(s): I21.4 - Non-ST elevation (NSTEMI) myocardial infarction Category: Medical Plan Atorvastatin 80 mg daily will be continued to manage hypercholesterolemia, with a goal of LDL cholesterol below 70 mg/dL. Hypertension management with losartan and hydrochlorothiazide will persist, along with regular evaluation of blood pressure readings. Continuous monitoring of renal function in chronic kidney disease is critical, with referral to nephrology services considered as needed. Secondary prophylaxis with low-dose aspirin remains imperative given the history of PCI with stent placement. Prescriptions for atorvastatin and other medications will be ensured. Discussion on vitamin D supplementation and potential alternatives for high-cost medications occurred. Lifestyle interventions, emphasizing diet and exercise, were advised for broader cardiovascular and renal health.: Patient was informed and verbally consented to the use of an ambient scribe for clinic note documentation during this visit. During the visit, I discussed the patient's stable diabetes management, with an A1c level now at 6.8%, and the importance of maintaining LDL cholesterol under 70 mg/dL for his comorbid conditions. I highlighted the role of atorvastatin and emphasized adherence. We discussed logistical challenges with his medications, particularly the cost concerning Repata injections. I advised continuation of aspirin for coronary artery disease, aiming to prevent thrombotic events, and we reviewed renal function results, confirming adequate GFR given his chronic kidney disease. We also addressed lifestyle modifications related to diet and physical activity, emphasizing a low-sodium diet for renal health. Finally, we organized his follow-up fasting lab work to optimize future appointments. Orders: Orders Lipid Panel Today E78.5 - Hyperlipidemia, unspecified Microalbumin, Random (w Creat) Today R80.9 - Proteinuria, unspecified Vitamin D 25-OH Total Today E55.9 - Vitamin D deficiency, unspecified AMB Hemoglobin A1c Today E11.29 - Type 2 diabetes mellitus with other diabetic kidney complication, R80.9 - Proteinuria, unspecified Comprehensive [place]. Panel Fast Today N18.31 - Chronic kidney disease, stage 3a Medications: Changed From losartan-hydrochlorothiazide 100-12.5 mg 1 tab PO DAILY To losartan-hydrochlorothiazide 100-12.5 mg 1 tab PO DAILY 90 days 90 tabs 1RF Refilled atorvastatin 80 mg PO DAILY 90 days 90 tabs 3RF Patient Instructions: - Continue current diabetes medications as prescribed. - Take atorvastatin 80 mg daily to manage cholesterol levels. - Adhere to losartan and hydrochlorothiazide regimen for blood pressure control. - Schedule regular fasting lipid panels for monitoring cholesterol. - Avoid medications with vitamin C due to allergy. - Make dietary changes to incorporate low sodium intake. - Engage in regular physical activity as feasible. - Follow up as discussed for future physical and laboratory assessments.
[2024-09-14 12:51] VITALS: BP 112/76; BMI 29.3
== END 2024-09-14 13:22 | disposition home or self-care (01) ==
LOC: HO.HMCH 12:46
PROVIDERS: PCP Internal Medicine; Visit Provider Internal Medicine
DX: E11.29 Type 2 diabetes mellitus with other diabetic kidney complication (principal); I12.9 Hypertensive chronic kidney disease with stage 1 through stage 4 chronic kidney disease, or unspecified chronic kidney disease; K21.9 Gastro-esophageal reflux disease without esophagitis; N18.31 Chronic kidney disease, stage 3a; I21.4 Non-ST elevation (NSTEMI) myocardial infarction; R80.9 Proteinuria, unspecified; E78.5 Hyperlipidemia, unspecified

== ENCOUNTER → 2024-09-14 12:45 | Outpatient (BNVA) | payer MEDICARE, SELFPAY | PROVIDERS: PCP Internal Medicine; Visit Provider Internal Medicine | DX: E11.29 Type 2 diabetes mellitus with other diabetic kidney complication (principal); R80.9 Proteinuria, unspecified; I12.9 Hypertensive chronic kidney disease with stage 1 through stage 4 chronic kidney disease, or unspecified chronic kidney disease; E11.22 Type 2 diabetes mellitus with diabetic chronic kidney disease; N18.31 Chronic kidney disease, stage 3a; E78.5 Hyperlipidemia, unspecified; K21.9 Gastro-esophageal reflux disease without esophagitis; I21.4 Non-ST elevation (NSTEMI) myocardial infarction | CPT/HCPCS: 83036; 96127; 99212 ==

== ENCOUNTER 2024-09-25 07:48 | Outpatient (REF) | payer MEDICARE, SELFPAY ==
--- OUTSIDE RECORDS SUMMARY | 2024-09-25 07:51 | XMS_ITS | Clinical Summary ---
Author Organization [facility] Address [address] [facility] [address] [place] [address] Phone Care Team Providers Care Team Guide Name Role Phone Jihan Ceballos MD Primary Care Provider [phone] Allergies Active Allergy Reactions Criticality Noted Date Comments Vitamin C-Vitamin E-Panthenol Other (see comments) 11/26/2021 Medications aspirin ([facility]) 81 MG EC tablet Take 1 tablet [...] age to complete this topic Insurance [place] [address] [address] MEDICAID Care Teams Team Guide Relationship Specialty Start Date End Date Jihan Ceballos MD [address] [facility] [address] [place] [address] PCP - General Internal Medicine 08/22/21
--- OUTSIDE RECORDS SUMMARY | 2024-09-25 07:52 | XMS_ITS | Clinical Summary ---
Author Organization [address] [place] [address] Address [address] [place] [address] Phone Care Team Providers Care Information Systems Specialist Name Role Phone Jihan Reid MD Primary Care Provider [phone] Allergies No known active allergies Medications isosorbide [...] artery disease of n ative artery of [place] heart with stable angina pectoris 06/28/2022 Overview [...] Encounters Date Type Department Care Team Description 09/01/2024 Telephone [facility] Cardiology [facility] - [address] [place] [phone] Darron Burton MD Appointment (Stress test needed ) 08/31/2024 Telephone [facility] Cardiology [facility] - [address] [place] [phone] Jihan Reid MD Medical Records 08/03/2024 9:50 AM EST Office Visit [facility] Cardiology [facility] - [address] [place] [phone] Darron Burton MD Coronary artery disease of [place] artery of [place] heart with stable angina pectoris (CMS/HCC) (Primary Dx); Mixed hyperlipidemia; NSTEMI (non-ST elevated myocardial infarction) (CMS/HCC) 07/22/2024 Telephone [facility] Cardiology [facility] - [address] [place] [phone] Darron Burton MD 06/29/2024 Telephone [facility] - [address] [place] [phone] Yi Santos NP Walk-in (Refill of isosorbide) from Last 3 Months Surgical History Surgery Date Site/Laterality Comments CHOLECYSTECTOMY PROCEDURE: HISTORICAL CHOLECYSTECTOMY COLONOSCOPY PROCEDURE: HISTORICAL COLONOSCOPY Medical History Medical History Date Comments Type 2 diabetes mellitus DX:Type 2 diabetes mellitus (HCC) Essential hypertension DX:Essent ial hypertension Hyperlipidemia DX:Hyperlipidemi [...] 08/03/2024 9:48 AM EST Plan of Treatment Upcoming Encounters Date Type Department Care Team (Late st Contact Info) Description 09/28/2024 9:15 AM EDT Ancillary Procedure [facility] - [address] [place] [address] Health Maintenance Due Date Last Done Comments Diabetes: Annual Foot Exam 1968 Diabetes: Annual Retina Eye Exam 1968 DTaP,Tdap,and Td Vaccines (1 - Tdap) 1977 Pneumococcal Vaccine: 50+ Years (1 of 2 - PCV) 1977 Zoster Vaccines (1 of 2) 2008 RSV Immunization Adult Patients (1 - Risk 60-74 years 1-dose series) 2018 Depression Screening 05/26/2022 Hepatitis C Screening 05/26/2022 Medicare Annual Wellness Visit 05/26/2022 Social Influencers of Health Screening 05/26/2022 Falls Risk Assessment 09/22/2023 COVID-19 Vaccine ( - 2023-2 5 season) 2024 Diabetes: Annual Urine Albumin-Creatinine Ratio (uACR) 06/29/2024 Diabetes: Blood Sugar Contro l Test (HGBA1C) 06/29/2024 Influenza Vaccine (Season Ended) 2025 Diabetes: Annual GFR (Glomerular Filtration Rate) 07/06/2025 [...] LAB CHEMISTRY METHOD 07/06/2024 9:48 AM EST [facility] Triglycerides 211(H) 0 - 150 mg/dL LAB CHEMISTRY METHOD 07/06/2024 9:48 AM EST [facility] HDL 33(L) >=40 mg/dL LAB CHEMISTRY METHOD 07/06/2024 9:48 AM [facility] LDL Calculated 138(H) 0 - 100 mg/dL LAB CHEMISTRY METHOD 07/06/2024 9:48 AM [facility] VLDL Cholesterol Fabio 42.2 mg/dL LAB CHEMISTRY METHOD 07/06/2024 9:48 AM [facility] Non HDL Chol. (LDL+VLDL) 180(H) <145 mg/dL LAB CHEMISTRY METHOD 07/06/2024 9:48 AM [facility] Chol/HDL Ratio 6.5(H) 0.0 - 4.4 LAB CHEMISTRY METHOD 07/06/2024 9:48 AM [facility] Blood Venous blood specimen / Unknown Venipuncture / Unknown 07/06/2024 8:20 AM EST 07/06/2024 9:08 AM EST us Darron Burton MD LAB BLOOD ORDERABLES Final Resu lt [facility] [address] [place] [address], * (ABNORMAL) Comprehensive metabolic panel (07/06/2024 8:20 AM EST) Sodium 136 133 - 145 mmol/L LAB CHEMISTRY METHOD 07/06/2024 9:47 AM [facility] Potassium 3.7 3.5 - 5.5 mmol/L LAB CHEMISTRY METHOD 07/06/2024 9:47 AM [facility] Chloride 103 96 - 110 mmol/L LAB CHEMISTRY METHOD 07/06/2024 9:47 AM [facility] CO2 29 21 - 32 mmol/L LAB CHEMISTRY METHOD 07/06/2024 9:47 AM [facility] Anion Gap 4 3 - 11 LAB CHEMISTRY METHOD 07/06/2024 9:47 AM [facility] Glucose 154(H) 70 - 100 mg/dL LAB CHEMISTRY METHOD 07/06/2024 9:47 AM [facility] BUN 13 5 - 25 mg/dL LAB CHEMISTRY METHOD 07/06/2024 9:47 AM [facility] Creatinine 1.22 0.70 - 1.30 mg/dL LAB CHEMISTRY METHOD 07/06/2024 9:47 AM [facility] eGFR 66 >=60 mL/min/1. 73m2 LAB CHEMISTRY METHOD 07/06/2024 9:47 AM [facility] Comment:Calculation based on the??Chronic Kidney Disease Epidemiology Collaboration (CKD-EPI) equation refit??without adjustment for race. BUN/Creatinine Ratio 10.7 LAB CHEMISTRY METHOD 07/06/2024 9:47 AM [facility] Calcium 9.4 8.5 - 10.5 mg/dL LAB CHEMISTRY METHOD 07/06/2024 9:47 AM [facility] AST (SGOT) 25 10 - 42 unit/L LAB CHEMISTRY METHOD 07/06/2024 9:47 AM [facility] ALT (SGPT) 47 10 - 60 unit/L LAB CHEMISTRY METHOD 07/06/2024 9:47 AM [facility] Alkaline Phosphatase 74 42 - 121 unit/L LAB CHEMISTRY METHOD 07/06/2024 9:47 AM [facility] Total Protein 7.2 6.0 - 8.0 g/dL LAB CHEMISTRY METHOD 07/06/2024 9:47 AM [facility] Albumin 3.7 3.2 - 5.0 g/dL LAB CHEMISTRY METHOD 07/06/2024 9:47 AM [facility] Total Bilirubin 2.0(H) 0.0 - 1.4 mg/dL LAB CHEMISTRY METHOD 07/06/2024 9:47 AM [facility] Blood Venous blood specimen / Unknown Venipuncture / Unknown 07/06/2024 8:20 AM EST 07/06/2024 9:08 AM EST Darron Burton MD LAB BLOOD ORDERABLES Final Resu lt [facility] [address] [place] [address], [place] [phone] * Colonoscopy (09/12/2023) HM Colonoscopy No interpretation , Abstracted Anatomical Region Laterality Modality Other Historical Provider HEALTH MAINTENANCE Final Result from Last 3 Months or Most Recently Relevant to Health Maintenance Insurance [employer] Care Teams Information Systems Specialist Relationship Specialty Start Date End Date Jihan Reid MD [address] [facility] , [address] [facility] Physician Associ D/B/A: [facility] BILL Nieto PCP - General 03/15/21
[2024-09-25 09:51] LABS: Creatinine Urine 146.97 mg/dL; Microalbum/Creatinine Ratio Ur 6.8 ug/mg cr (<30)
[2024-09-25 09:52] LABS: Alanine Aminotransferase 25 U/L (0-40); Alkaline Phosphatase 60 U/L (39-117); Anion Gap 9 (12-20); Aspartate Amino Transferase 22 U/L (5-37); Bilirubin Total 1.5 mg/dL (0.0-1.0); Blood Urea Nitrogen 24 mg/dL (9-16); Calcium 9.6 mg/dL (8.4-10.2); Carbon Dioxide 27 mmol/L (22-29); Chloride 106 mmol/L (96-108); Cholesterol 302 mg/dL (<200); Estimated Glomerular Filt Rate > 60; Glucose Fasting 127 mg/dL (60-99); HDL Cholesterol 31 mg/dL (>40); LDL Cholesterol Calculated 234 mg/dL (<100); Potassium 4.1 mmol/L (3.3-5.1); Sodium 138 mmol/L (135-145); Total Protein 7.1 g/dL (6.5-8.0); Triglycerides 185 mg/dL (<150)
[2024-09-25 10:12] LABS: Vitamin D 25-OH Total 31.9 ng/mL (>30)
== END 2024-09-25 07:49 | disposition home or self-care (01) ==
LOC: HO.LAB 07:48
PROVIDERS: PCP Internal Medicine; Visit Provider Internal Medicine
DX: E78.5 Hyperlipidemia, unspecified (principal); N18.31 Chronic kidney disease, stage 3a; R80.9 Proteinuria, unspecified; E55.9 Vitamin D deficiency, unspecified
CPT/HCPCS: 36415; 80053; 80061; 82043; 82306; 82570

== ENCOUNTER 2024-09-30 14:46 | Outpatient (AMB) | payer MEDICARE, SELFPAY ==
--- NOTE | 2024-09-30 15:01 | MHC.PC.OV ---
Vital Signs 09/30/24 15:06 Height 5 ft 4 in Weight 171 lb BMI 29.3 BP 110/76 Blood Pressure Location Lt brachial Position Sitting Intake Visit Reasons: Annual exam Intake Note: Patient here for an annual physical exam Install And Repair Technician Required: Yes Install And Repair Technician Language: Bonding Agent Name: Jihan Reid MD Information Interpreted: non-clinical & clinical Accompanied by: Self / Same As Patient Allergies vitamin c lotion Allergy (Intermediate, Uncoded 09/30/24 15:15) rash Medication List - Last Reconciled 09/30/24 by Jihan Reid MD aspirin 81 mg PO DAILY atorvastatin 80 mg PO DAILY 90 days cholecalciferol (vitamin D3) 25 mcg PO DAILY 90 days clopidogrel 75 mg PO DAILY evolocumab (Repatha SureClick) 140 mg subcut Q2W 30 days ezetimibe 10 mg PO DAILY 90 days isosorbide mononitrate ER 60 mg PO DAILY losartan-hydrochlorothiazide 100-12.5 mg 1 tab PO DAILY 90 days metformin 500 mg (1/2 x 1,000 mg) PO BID 90 days metoprolol tartrate 12.5 mg PO BID pioglitazone 30 mg PO DAILY 90 days simethicone 180 mg PO BID spironolactone 25 mg PO DAILY Tobacco use date assessed: 09/14/24 Fall risk assessment: No Falls in past year Last assessed Fall Risk: 09/30/24 Dental Screening Dental Screen Date: 09/14/24 HPI HPI Comments History of Present Illness Details The patient is a 64-year-old male presenting for an annual physical examination. The patient?s past medical history includes type 2 diabetes mellitus and chronic kidney disease stage 3 follow by Nephrology. Diabetes is currently controlled with a recent hemoglobin A1c of 6.8%. He also has hyperlipidemia managed with atorvastatin, although during the visit, it was noted that both cholesterol and triglyceride levels remain elevated. The patient has a significant cardiac history, having undergone a stent placement for coronary artery disease. He successfully manages his hypertension with a combination of medications including losartan and spironolactone, with satisfactory blood pressure readings. The patient highlighted an allergy to Vitamin C lotion and discussed his current medication regimen with numerous cardiovascular and diabetes-related drugs. His treatment with Repatha has been interrupted due to financial constraints from insurance approval issues. His vaccination status was reviewed, and although the pneumonia vaccine is advised after age 65, the patient has decided to defer this vaccination presently due to concerns about potential side effects. Family history was noted for cardiac and diabetic conditions, with his father having had a possibility of angina and his mother having a history of diabetes and hypertension, including surgical interventions related to cardiac health. - Discussion about pneumonia vaccine recommended for age over 65; patient deferring due to concerns about potential side effects. - Colonoscopy last conducted in 2018, next due in 2028. - Review of last A1c result at 6.8%, indicating controlled glycemic levels. - Review of high cholesterol and triglyceride levels. - Discussion on the need for Repatha therapy; currently not approved by insurance, potentially affecting lipid control. [facility] Medical History (Updated 09/30/24 @ 15:28 by Jihan Reid MD) Elevated hemoglobin Daytime sleepiness Hypovitaminosis D Familial hypercholesterolemia BPPV (benign paroxysmal positional vertigo) NAFLD (nonalcoholic fatty liver disease) Essential hypertension GERD (gastroesophageal reflux disease) Hyperbilirubinemia Diabetes mellitus Surgical History History of heart artery stent History of colonoscopy History of cardiac catheterization Family History (Updated 09/30/24 @ 15:22 by Jihan Reid MD) Father CAD (coronary artery disease) Mother Diabetes CVD (cardiovascular disease) Hypertension Family/Other Diabetes CAD (coronary artery disease) Other No family history of cancer Social History Household Members: Family Housing: House Are you a primary career transition specialist to a significant other at home: No Do you presently have visiting nurse or other home services: No Alcohol intake: never Patient Tobacco Use Status: Never used Tobacco e-Cigarette/Vaping Use: Never Used Second Hand Smoke Exposure: No service: No Current occupational status: employed and unemployed 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 Brendan Duncan, Trish Holloway, Juan Carlos Gardner and colleagues, with an educational ramona from [employer]. Review of Systems Const All systems reviewed & are unremarkable except as noted in HPI and below Card Denies chest pain at rest, Denies chest pain with activity, Denies edema, Denies irregular heart rhythm, Denies claudication, Denies dyspnea, Denies dyspnea on exertion, Denies orthopnea, Denies paroxysmal nocturnal dyspnea and Denies slow heart rate Resp Denies cough, Denies dyspnea and Denies dyspnea on exertion GI Denies abdominal pain, Denies change in bowel habits, Denies excessive flatus, Denies nausea and Denies vomiting Denies urinary hesitancy, Denies urinary incontinence and Denies urinary urgency Neuro Denies lack of coordination Physical exam (Primary Care) Vital Signs: Last Vital Signs BP 110/76 09/30/24 15:06 BMI result Body Mass Index 29.3 Tobacco/Smoking Status: Tobacco use Status Tobacco use date assessed 09/14/24 09/30/24 15:12 Patient Tobacco Use Status Never used Tobacco 09/30/24 15:12 e-Cigarette/Vaping Use Never Used 09/30/24 15:12 Thrive Assessment: Date of Thrive Assessment Date Thrive assessed 09/14/24 09/30/24 15:12 HENFL Head: Yes normal to inspection, Yes normocephalic and Yes atraumatic Ears: external ears normal Eyes General: appearance normal, both eyes and all related structures Eyelids: Yes eyelids normal Conjunctivae: conjunctivae normal Neck Neck: Yes normal visual inspection and Yes supple Resp Effort & Inspection: normal respiratory effort Auscultation: clear to auscultation bilaterally Cardio Jugular venous distension: no JVD Rate: regular rate Rhythm: regular rhythm Heart sounds: S1 normal heart sound present and S2 normal heart sound present GI Inspection: Yes normal to inspection Palpation (GI): Soft to palpation and nontender Auscultation: normal bowel sounds Skin General skin exam: no rashes or lesions noted Neuro General: no focal motor deficits Extrem General: Yes full ROM Psych Appearance: grossly normal Coding Level of Care Code Est Pt Prev Care >65y(57668) Diagnoses Physical exam Z00.00 CKD stage 3a, GFR 45-59 ml/min N18.31 Type 2 diabetes mellitus with microalbuminuria, without long-term current use of insulin E11.29; R80.9 Diabetes mellitus type: type 2 Diabetes mellitus senior living insulin use: without termite control servicer use Diabetes mellitus complication status: with kidney complications Diabetes mellitus complication detail: with microalbuminuria Time Spent (min) 31 Assessment & Plan Assessment & Plan (1) Physical exam: Code(s): Z00.00 - Encounter for general adult medical examination without abnormal findings Category: Medical (2) CKD stage 3a, GFR 45-59 ml/min: Code(s): N18.31 - Chronic kidney disease, stage 3a Category: Medical (3) Diabetes mellitus: Code(s): E11.9 - Type 2 diabetes mellitus without complications Category: Medical Qualifiers: Diabetes mellitus type: type 2 Diabetes mellitus termite control servicer insulin use: without senior living use Diabetes mellitus complication status: with kidney complications Diabetes mellitus complication detail: with microalbuminuria Qualified Code(s): E11.29 - Type 2 diabetes mellitus with other diabetic kidney complication; R80.9 - Proteinuria, unspecified Plan Hypertension management remains stable with no new interventions. The unreceived pneumonia vaccine was discussed, emphasizing the advisory for [id number], albeit deferred by the patient. A future assessment is planned including follow-up labs in four months to revisit the patient's lipid profile and pending Repatha's prescription status.: Patient was informed and verbally consented to the use of an ambient scribe for clinic note documentation during this visit. During this session, we elaborated on the management of the patient's hyperlipidemia in light of financial constraints affecting medication regimens like Repatha. Emphasis was placed on the importance of maintaining statin therapy and potential future reconsideration of Repatha once moralized by insurance reviews. Additional discussions surrounded recommendations for receiving a pneumonia vaccination post-65, which was not pursued at this meeting but will remain an important consideration moving forward. Follow-up plans involve a four-month period to conduct lab reviews for anticipatory lipid assessment. We ensured the patient understood the context of management and invited ongoing dialogue in addressing any medication or procedural concerns. Orders: Orders Microalbumin, Random (w Creat) 4 Months R80.9 - Proteinuria, unspecified Vitamin D 25-OH Total 4 Months E55.9 - Vitamin D deficiency, unspecified Comprehensive Brigantine. Panel Fast 4 Months N18.31 - Chronic kidney disease, stage 3a Lipid Panel 4 Months E78.5 - Hyperlipidemia, unspecified Vitamin B12 and Folate 4 Months E53.8 - Deficiency of other specified B group vitamins Medications: Refilled evolocumab (Repatha SureClick) 140 mg subcut Q2W 30 days 3 mL 6RF E11.9 - Type 2 diabetes mellitus without complications, E78.01 - Familial hypercholesterolemia, I21.4 - Non-ST elevation (NSTEMI) myocardial infarction Patient Instructions: - Continue current medication regimen for diabetes and hypertension. - Consider the pneumonia vaccination in the future and discuss any concerns. - Plan for lab follow-up in four months to reassess hyperlipidemia. - Monitor for side effects or financial changes that might impact Repatha therapy. - Maintain open communication on any medical issues or further questions.
[2024-09-30 15:06] VITALS: BP 110/76; BMI 29.3
--- OUTSIDE RECORDS SUMMARY | 2024-09-30 17:23 | XMS_ITS | Encounter Summary ---
Author Organization [facility] Address [address] [place] [phone] Care Team Providers Care Machine Umbrella Tipper Name Role Phone Jihan Reid MD Primary Care Provider [phone] Reason for Visit * Cardiac Stress Testing (Routine) - Authorized Specialty Diagnoses / Procedures Referred By Contac t Referred To Contact Cardiology Diagnoses Coronary artery disease of [place] artery of [place] heart with stable angina pectoris ([facility] V24) NSTEMI (non-ST elevated myocardial infarction) ([facility] V24, [facility] V28) Procedures Exercise stress test Darron Burton MD [address] [place] [address] Phone: tel: fax: [facility] Referral ID Status Reason Start Date Expiration Date V isits Requested Visits Authorized [id number] Authorized 09/02/2024 09/02/2025 1 1 Encounter Details Date Type Department Care Team (Latest Contact Info) Description 09/28/2024 9:15 AM EDT Ancillary Procedure [facility] - [address] [place] [phone] Coronary artery disease of [place] artery of [place] heart with stable angina pectoris ([facility] V24); NSTEMI (non-ST elevated myocardial infarction) ([facility] V24, CMS/HCC V28) Social History Tobacco Use Types Packs/Day Years [...] Sign Reading Time Taken Comments Blood Pressure 100/72 09/28/2024 8:52 AM EDT Pulse - - Temperature - - Respiratory Rate - - Oxygen Saturation - - Inhaled Oxygen Concentration - - Weight 78.5 kg (173 lb) 09/28/2024 8:52 AM EDT Height - - Body Mass Index 29.7 08/03/2024 9:48 AM EST documented in this encounter Plan of Treatment Not on file documented as of this encounter Procedures Procedure Name Priority Date/Time Associated Diagnosis Comments STRESS TEST ONLY EXERCISE Routine 09/28/2024 9:40 AM EDT Coronary artery disease of [place] artery of [place] heart with stable angina pectoris ([facility] V24) NSTEMI (non-ST elevated myocardial infarction) ([facility] V24, [facility] V28) documented in this encounter Results * Exercise stress test (09/28/2024 9:40 AM EDT) Target HR 131 bpm CV STRESS ONLY Baseline HR 63 bpm CV STRES S ONLY Baseline SBP 100 mmHg CV STRE SS ONLY Baseline DBP 72 mmHg CV STRE SS ONLY Peak HR 125 bpm CV STRESS ONLY Peak SBP 160 mmHg CV STRESS ONLY Peak DBP 70 mmHg CV STRESS ONLY Estimated workload 12.1 METS CV STRESS ONLY Rate Pressure Product 20,000.0 mmHg*bpm CV STRESS ONLY Percent HR 81 % CV STRESS ONLY Exercise/inject ion duration (min) 7 min CV STRESS ONLY Exercise/inject ion duration (sec) 40 sec CV STRESS ONLY Angina Index 0 CV STRE SS ONLY Shelley Treadmill Score [address] Depression (mm) 0 mm CV STRESS ONLY Anatomical Region Laterality Modality Cardiac Diagnost ic Narrative 09/29/2024 12:52 PM EDT ?Stress ECG was normal. ?Exercise stress test was performed. Patient reported no symptoms during the stress test. Exercise capacity was average. Normal blood pressure response. ?Stress: An Accelerated Brent protocol stress test was performed. Patient achieved 81% MPHR in Brent Stage 4. Heart rate demonstrated a slightly blunted response on metoprolol. The patient reported no symptoms during the stress test. ETT to 81% MPHR. Good exercise tolerance. No ECG evidence of ischemia and no angina type symptoms. Stress Findings An Accelerated Brent protocol stress test was performed. Patient achieved 81% MPHR in Brent Stage 4. Overall, the patient's exercise capacity was average. Total stress time was 7 min and 40 sec. The patient experienced no angina during the test. The test was stopped because the patient experienced fatigue. The Shelley Treadmill Score is 8. The patient's hemodynamic response was adequate for diagnosis. Blood pressure demonstrated a normal response. Heart rate demonstrated a slightly blunted response on metoprolol. The patient reported no symptoms during the stress test. ECG 64 yo male with CAD. 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 A senior strategy manager was used during test. The ECG shows normal sinus rhythm. Baseline ECG indicates left anterior fascicular block. There were no arrhythmias during stress. There is no ST segment changes during stress. There were no arrhythmias during recovery. The result of the stress ECG was negative for ischemia. Darron Burton MD CV STRESS PROCEDURES Final Resu lt documented in this encounter Visit Diagnoses Diagnosis Coronary artery disease of [place] artery of [place] heart with stable angina pectoris (CMS/HCC V24) NSTEMI (non-ST elevated myocardial infarction) (CMS/HCC V24, CMS/HCC V28) Acute myocardial infarction, subendocardial infarction, episode of care unspecified documented in this encounter Care Teams Machine Umbrella Tipper Relationship Specialty Start Date End Date Jihan Reid MD [address] [place] [address] , [address] [facility] Physician Associ D/B/A: [facility] [place] PCP - General 03/15/21 documented as of this encounter
--- OUTSIDE RECORDS SUMMARY | 2024-09-30 17:23 | XMS_ITS | Clinical Summary ---
Author Organization [address] [place] [address] Address [address] [place] [address] Phone Care Team Providers Care Student Admissions Clerk Name Role Phone Jihan Reid MD Primary Care Provider [phone] Allergies No known active allergies Medications atorvastatin (LIPITOR) 80 mg tablet Take 1 Tablet by mouth daily. 3 Active evolocumab (Repatha Syringe) 140 mg/mL syringe Inject into the skin every 14 days. Active ezetimibe (ZETIA) 10 mg tablet Take 1 Tablet by mouth daily. Active losartan-hydroC HLOROthiazide (HYZAAR) 100-12.5 mg per tablet Take 1 [...] daily 75mg 90 each 2 5 Active isosorbide mononitrate (IMDUR) 60 mg 24 hr tabletIndicatio ns:Coronary artery disease of [place] artery of [place] heart with stable angina pectoris (CMS/[facility] V24) Take 1 tablet (60 mg total) by mouth 1 (one) time each day. Do not crush or chew. 90 each 2 5 Active isosorbide mononitrate (IMDUR) 60 mg 24 hr tablet Take 1 tablet (60 mg total) by mouth 1 (one) time each day. Do not crush or chew. 90 each 5 09/28/19 25 Discontin ued(Reord er) Active Problems Problem Noted Date Diagnosed Date [...] artery disease of n ative artery of [place] heart with stable angina pectoris (CMS/HCC V24) 06/28/2022 Overview (06/30/2024): Last Assessment & Plan: [...] is less than 55. NSTEMI (non-ST elevated myoc ardial infarction) ([facility] V24, [facility] V28) 06/28/2022 Encounters Date Type Department Care Team Description 09/28/2024 9:15 AM EDT Ancillary Procedure [facility] Cardiology [facility] [address] [place] [phone] Coronary artery disease of [place] artery of [place] heart with stable angina pectoris ([facility] V24); NSTEMI (non-ST elevated myocardial infarction) ([facility] V24, [facility] V28) 09/27/2024 Telephone [facility] [address] [place] [phone] Yi Santos, DONOVAN Med Refill 09/01/2024 Telephone [facility] [address] [place] [phone] Darron Burton MD Appointment (Stress test needed ) 08/31/[address] [facility] Cardiology [facility] [address] [place] [phone] Jihan Reid MD Medical Records 08/03/2024 9:50 AM EST Office Visit [facility] [address] [place] [phone] Darron Burton MD Coronary artery disease of [place] artery of [place] heart with stable angina pectoris ([facility] V24) (Primary Dx); Mixed hyperlipidemia; NSTEMI (non-ST elevated myocardial infarction) ([facility]/HCC V24, [facility] V28) 07/22/[address] [facility] [address] [facility] [address] [place] [address] Darron Burton MD from Last 3 Months Surgical History Surgery Date Site/Laterality Comments CHOLECYSTECTOMY PROCEDURE: HISTORICAL CHOLECYSTECTOMY COLONOSCOPY PROCEDURE: HISTORICAL COLONOSCOPY Medical History Medical History Date Comments Type 2 diabetes mellitus (CM S/HCC V24, [facility] V28) DX:Type 2 diabetes mellitus (HCC) Essential hypertension [...] Pressure 100/72 09/28/2024 8:52 AM EDT Pulse 60 08/03/2024 9:48 AM EST Temperature - - Respiratory Rate - - Oxygen Saturation 98% 08/03/2024 9:48 AM EST Inhaled Oxygen Concentration - - Weight 78.5 kg (173 lb) 09/28/2024 8:52 AM EDT Height 162.6 cm (5' 4 ) 08/03/2024 9:48 AM EST Body Mass Index 29.7 08/03/2024 9:48 AM EST Plan of Treatment [...] 05/26/2022 Falls Risk Assessment 09/22/2023 COVID-19 Vaccine (1 - 2023-2 5 season) 2024 Diabetes: Annual [...] age to complete this topic Meningococcal B Vaccine Aged Out No l onger eligible based on patient's age to complete [...] 9:40 AM EDT Coronary artery disease of [place] artery of [place] heart with stable angina pectoris ([facility] V24) NSTEMI (non-ST elevated myocardial infarction) (CMS/HCC V24, CMS/HCC V28) LIPID PANEL WITH REFLEX TO DIRECT LDL Routine 07/06/2024 8:20 AM EST Hyperlipidemia, unspecified hyperlipidemia type COMPREHENSIVE METABOLIC PANEL Routine 07/06/2024 8:20 AM EST Chronic hypertension HM COLONOSCOPY Routine 09/12/2023 from Last 3 Months or Most Recently Relevant to Health Maintenance Results * Exercise stress test (09/28/2024 9:40 [...] with CAD. 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 A diplomatic interpreter/translator was used during test. The ECG shows normal sinus rhythm. Baseline ECG indicates left anterior fascicular block. There were no arrhythmias during stress. There is no ST segment changes during stress. There were no arrhythmias during recovery. The result of the stress ECG was negative for ischemia. us Darron Burton MD CV STRESS PROCEDURES Final Resu lt * (ABNORMAL) Lipid panel with reflex to direct LDL (07/06/2024 8:20 AM EST) Cholesterol 213(H) 0 - 200 mg/dL LAB CHEMISTRY METHOD 07/06/2024 9:[address] [facility] Triglycerides 211(H) 0 - 150 mg/dL LAB CHEMISTRY METHOD 07/06/2024 9:[address] [facility] HDL 33(L) >=40 mg/dL LAB CHEMISTRY METHOD 07/06/2024 9:[address] [facility] LDL Calculated 138(H) 0 - 100 mg/dL LAB CHEMISTRY METHOD 07/06/2024 9:[address] [facility] VLDL Cholesterol Fabio 42.2 mg/dL LAB CHEMISTRY METHOD 07/06/2024 9:[address] [facility] Non HDL Chol. (LDL+VLDL) 180(H) <145 mg/dL LAB CHEMISTRY METHOD 07/06/2024 9:[address] [facility] Chol/HDL Ratio 6.5(H) 0.0 - 4.4 LAB CHEMISTRY METHOD 07/06/2024 9:[address] [facility] Blood Venous blood specimen / Unknown Venipuncture / Unknown 07/06/2024 8:20 AM EST 07/06/2024 9:08 AM EST us Darron Burton MD LAB BLOOD ORDERABLES Final Resu lt [facility] [address] [place] [address], * (ABNORMAL) Comprehensive metabolic panel (07/06/2024 8:20 AM EST) Sodium 136 133 - 145 mmol/L LAB CHEMISTRY METHOD 07/06/2024 9:47 AM EST [facility] Potassium 3.7 3.5 - 5.5 mmol/L LAB CHEMISTRY METHOD 07/06/2024 9:[address] [facility] Chloride 103 96 - 110 mmol/L LAB CHEMISTRY METHOD 07/06/2024 9:[address] [facility] CO2 29 21 - 32 mmol/L LAB CHEMISTRY METHOD 07/06/2024 9:[address] [facility] Anion Gap 4 3 - 11 LAB CHEMISTRY METHOD 07/06/2024 9:[address] [facility] Glucose 154(H) 70 - 100 mg/dL LAB CHEMISTRY METHOD 07/06/2024 9:[address] [facility] BUN 13 5 - 25 mg/dL LAB CHEMISTRY METHOD 07/06/2024 9:[address] [facility] Creatinine 1.22 0.70 - 1.30 mg/dL LAB CHEMISTRY METHOD 07/06/2024 9:[address] [facility] eGFR 66 >=60 mL/min/1. 73m2 LAB CHEMISTRY METHOD 07/06/2024 9:[address] [facility] Comment:Calculation based on the??Chronic Kidney Disease Epidemiology Collaboration (CKD-EPI) equation refit??without adjustment for race. BUN/Creatinine Ratio 10.7 LAB CHEMISTRY METHOD 07/06/2024 9:[address] [facility] Calcium 9.4 8.5 - 10.5 mg/dL LAB CHEMISTRY METHOD 07/06/2024 9:[address] [facility] AST (SGOT) 25 10 - 42 unit/L LAB CHEMISTRY METHOD 07/06/2024 9:[address] [facility] ALT (SGPT) 47 10 - 60 unit/L LAB CHEMISTRY METHOD 07/06/2024 9:[address] [facility] Alkaline Phosphatase 74 42 - 121 unit/L LAB CHEMISTRY METHOD 07/06/2024 9:[address] [facility] Total Protein 7.2 6.0 - 8.0 g/dL LAB CHEMISTRY METHOD 07/06/2024 9:[address] [facility] Albumin 3.7 3.2 - 5.0 g/dL LAB CHEMISTRY METHOD 07/06/2024 9:[address] [facility] Total Bilirubin 2.0(H) 0.0 - 1.4 mg/dL LAB CHEMISTRY METHOD 07/06/2024 9:[address] [facility] Blood Venous blood specimen / Unknown Venipuncture / Unknown 07/06/2024 8:20 AM EST 07/06/2024 9:08 AM EST Darron Burton MD LAB BLOOD ORDERABLES Final Resu lt [facility] [address] [place] [address], * Colonoscopy (09/12/2023) Colonoscopy No interpretation , Abstracted Anatomical Region Laterality Modality Other Historical Provider HEALTH MAINTENANCE Final Result from Last 3 Months or Most Recently Relevant to Health Maintenance Insurance [employer] Care Teams Student Admissions Clerk Relationship Specialty Start Date End Date Jihan Reid MD 2 [facility] , [address] Physician Associ D/B/A: [facility] BILL Nieto PCP - General 03/15/21
--- OUTSIDE RECORDS SUMMARY | 2024-09-30 17:23 | XMS_ITS | Clinical Summary ---
Author Organization [facility] Address [address] [facility] [address] [place] [address] Phone Care Team Providers Care Limited Radiology Technician Name Role Phone Jihan Ceballos MD Primary Care Provider [phone] Allergies Active Allergy Reactions Criticality Noted Date Comments Vitamin C-Vitamin E-Panthenol Other (see comments) 11/26/2021 Medications aspirin ([facility]) 81 MG EC tablet Take 1 [...] Due Date Last Done Comments Pneumococcal Vaccine: 50+ Ye ars (1 of 2 - PCV) 1966 Colorectal Cancer Screening: Annual FOBT 09/22/2007 Colorectal Cancer Screening: Colonoscopy 09/22/2007 Colorectal Cancer Screening: Sigmoidoscopy 09/22/2007 Diabetes: Hemoglobin A1C 06/20/2022 Diabetes: Ophthalmology Exam 06/20/2022 Diabetes: Pedal Pulse Checked 06/20/2022 Diabetes: Sensory Foot Exam 06/20/2022 Diabetes: Visual Foot Exam 06/20/2022 Influenza Vaccine (Season Ended) 2025 Hepatitis B Vaccine Aged Out No longe r eligible based on patient's age to complete this topic Insurance Medicaid [facility] Medicaid Care Teams Limited Radiology Technician Relationship Specialty Start Date End Date Jihan Ceballos MD 2 [facility] [address] [place], [place] PCP - General Internal Medicine 08/22/21
--- OUTSIDE RECORDS SUMMARY | 2024-09-30 17:23 | XMS_ITS | Encounter Summary ---
Author Organization [facility] Address [address] [place] [address] Care Team Providers Care Aoc Plans Intelligence Officer Name Role Phone Jihan Reid MD Primary Care Provider [phone] Reason for Visit * Reason Onset Date Comments Appointment 09/01/2024 Stress test need ed Encounter Details Date Type Department Care Team (Late st Contact Info) Description 09/01/2024 Telephone [facility] - [facility] [address] [facility] [address] [place] [phone] Darron Burton MD [address] [place] [address] Appointment (Stress test needed ) Social History Tobacco Use Types Packs/Day Years [...] on file documented as of this encounter Progress Notes * Bettye Grace - 09/30/2024 9:41 AM EDT Thank you! * Bettye Grace - 09/03/2024 11:41 AM EDT I scheduled ETT with patient for 09/28/24 @ 8:15am, also called DOT office and informed DANYEL Casas. Medical records: Please fax a copy of ETT report, when received to DANYEL Borrego ( [facility]) to: Thanks! * Bettye Grace - 09/02/2024 12:29 PM EDT Noted, thank you. I will inform DANYEL Chu and patient. 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 Last OV with Darron was 08/03/24. Dr Burton, please advise if test should be done, and kindly place order. * Huong Orourke [place] - 09/01/2024 2:36 PM EDT Marcelle Skinner NP, called. She stated she gave the patient a form to give to us to make sure we schedule a stress test for him. I do see a record scanned in yesterday 08/31/24 titled THRESHMA CHRIS. She was addiment that the patient needs to have a stress either this spring or summer. Please advise. documented in this encounter Plan of Treatment Not on file documented as of this encounter Visit Diagnoses Not on filedocumented in this encounter Care Teams Aoc Plans Intelligence Officer Relationship Specialty Start Date End Date Jihan Reid MD [address] [place] [address] Physician Associ D/B/A: [facility] BILL Nieto PCP - General 03/15/21 documented as of this encounter
--- OUTSIDE RECORDS SUMMARY | 2024-09-30 17:23 | XMS_ITS | Encounter Summary ---
Author Organization [facility] Address [id number] [place] [address] Care Team Providers Care Forensic Chemist Name Role Phone Jihan Reid MD Primary Care Provider [phone] Reason for Visit * Reason Onset Date Comments Med Refill 09/27/2024 Encounter Details Date Type Department Care Team (Late st Contact Info) Description 09/27/2024 Telephone [facility] - [facility] [address] [phone] Yi Santos NP [address] [address] Med Refill Social History Tobacco Use Types Packs/Day Years [...] on file documented as of this encounter Ordered Prescriptions Prescription Sig Dispense Quantity Refills Last Filled Start Date End Date isosorbide mononitrate (IMDUR) 60 mg 24 hr tabletIndications:C oronary artery disease of [place] artery of [place] heart with stable angina pectoris (CMS/HCC V24) Take 1 tablet (60 mg total) by mouth 1 (one) time each day. Do not crush or chew. 90 each 2 09/27/2024 documented in this encounter Progress Notes * Betsy Mera [place] - 09/29/2024 10:06 AM EDT Patient called and aware of refill being at the pharmacy. * Yi Santos NP - 09/27/2024 4:16 PM EDT Refill sent; please notify the patient. Thank you! * Valorie Vargas - 09/27/2024 1:14 PM EDT Patient came into office for a refill on his ISOSORB MONO ER 60mg to be called into [facility] in [place]. Patient did call the pharmacy prior to coming to the office and they stated he had no more refills and needed to call the doctor. Patient can be reached at [phone] if you have any questions. Patient asked if he could get a call when we are able to refill the meds so he can go to the pharmacy. documented in this encounter Plan of Treatment Not on file documented as of this encounter Visit Diagnoses Diagnosis Coronary artery disease of [place] artery of [place] heart with stable angina pectoris (CMS/[facility] V24)- Primary documented in this encounter Discontinued Medications Medication Sig Discontinue Reason Start Date End Da te isosorbide mononitrate (IMDUR) 60 mg 24 hr tablet Take 1 tablet (60 mg total) by mouth 1 (one) time each day. Do not crush or chew. Reorder 06/29/2024 09/27/2024 documented as of this encounter Care Teams Forensic Chemist Relationship Specialty Start Date End Date Jihan Reid MD [address] [place] [address] , [address] Physician Associ D/B/A: [facility] BILL Nieto PCP - General 03/15/21 documented as of this encounter
== END 2024-09-30 15:28 | disposition home or self-care (01) ==
LOC: HO.HMCH 14:47
PROVIDERS: PCP Internal Medicine; Visit Provider Internal Medicine
DX: Z00.00 Encounter for general adult medical examination without abnormal findings (principal); N18.31 Chronic kidney disease, stage 3a; E11.29 Type 2 diabetes mellitus with other diabetic kidney complication; R80.9 Proteinuria, unspecified

== ENCOUNTER → 2024-09-30 14:46 | Outpatient (BNVA) | payer MEDICARE, SELFPAY | PROVIDERS: PCP Internal Medicine; Visit Provider Internal Medicine | DX: Z00.00 Encounter for general adult medical examination without abnormal findings (principal); N18.31 Chronic kidney disease, stage 3a; R80.9 Proteinuria, unspecified; E11.29 Type 2 diabetes mellitus with other diabetic kidney complication | CPT/HCPCS: 99397 ==

== ENCOUNTER 2025-02-22 08:15 | Outpatient (REF) | payer MEDICARE, SELFPAY ==
--- OUTSIDE RECORDS SUMMARY | 2025-02-22 08:47 | XMS_ITS | Clinical Summary ---
Author Organization [facility] Address 100 [facility] [address] [place] [address] Phone Care Team Providers Care Mall Manager Name Role Phone Jihan Ceballos MD Primary Care Provider [phone] Allergies Active Allergy Reactions Criticality Noted Date Comments Vitamin C-Vitamin E-Panthenol Other (see comments) 11/26/2021 Medications aspirin ([facility]) 81 MG EC tablet Take 1 tablet [...] Ye ars (1 of 2 - PCV) 1977 Colorectal Cancer Screening: Annual FOBT 09/22/2007 Colorectal Cancer Screening: Colonoscopy 09/22/2007 Colorectal Cancer Screening: Sigmoidoscopy 09/22/2007 Diabetes: Hemoglobin A1C 06/20/2022 Diabetes: Ophthalmology Exam 06/20/2022 Diabetes: Pedal Pulse Checked 06/20/2022 Diabetes: Sensory Foot Exam 06/20/2022 Diabetes: Visual Foot Exam 06/20/2022 Influenza Vaccine (#1) 2025 Hepatitis B Vaccine Aged Out No longe r eligible based on patient's age to complete this topic Insurance Medicaid [facility] Medicaid Care Teams Mall Manager Relationship Specialty Start Date End Date Jihan Ceballos MD 2 [facility] [address] [place], [place] PCP - General Internal Medicine 08/22/21
--- OUTSIDE RECORDS SUMMARY | 2025-02-22 08:47 | XMS_ITS | Clinical Summary ---
Author Organization [address] [place] [address] Address [address] [place] [address] Phone Care Team Providers Care Signals Analyst Name Role Phone Jihan Reid MD Primary Care Provider [phone] Allergies No known active allergies Medications atorvastatin [...] Take 1 Tablet by mouth daily. Active clopidogreL (PLAVIX) 75 mg tablet Take 4 tablets one time load ONLY and thereafter 1 tablet daily 75mg 90 each 2 5 Active isosorbide mononitrate (IMDUR) 60 mg 24 hr tabletIndication s:Coronary artery disease of [place] artery of [place] heart with stable angina pectoris (CMS/HCC V24) Take 1 tablet (60 mg total) by mouth 1 (one) time each day. Do not crush or chew. 90 each 2 5 Active metoprolol tartrate (LOPRESSOR) 25 mg tablet Take 0.5 tablets (12.5 mg total) by mouth 2 (two) times a day. 90 tablet 2 Active Active Problems Problem Noted Date Diagnosed [...] artery disease of n ative artery of [place] heart with stable angina pectoris ([facility] V24) 06/28/2022 Overview (06/30/2024): Last Assessment & [...] 53. NSTEMI (non-ST elevated myoc ardial infarction) ([facility] V24, [facility] V28) 06/28/2022 Surgical History Surgery Date Site/Laterality Comments CHOLECYSTECTOMY PROCEDURE: HISTORICAL CHOLECYSTECTOMY COLONOSCOPY PROCEDURE: HISTORICAL COLONOSCOPY Medical History Medical History Date Comments Type 2 diabetes mellitus ( S/HCC V24, [facility] V28) DX:Type 2 diabetes mellitus ([facility]) Essential hypertension DX:Essent ial hypertension [...] - Risk 60-74 years 1-dose series) 2018 Hepatitis C Screening 05/26/2022 Medicare Annual Wellness Visit 05/26/2022 Social Influencers of Health Screening 05/26/2022 Falls Risk Assessment 09/22/2023 Depression Screening 06/23/2024 Diabetes: Annual Urine Albumin-Creatinine Ratio (uACR) 06/29/2024 Diabetes: Blood Sugar Contro l Test (HGBA1C) 06/29/2024 COVID-19 Vaccine ( - 2023-2 5 season) 2025 Influenza Vaccine (#1) 2025 Diabetes: Annual GFR (Glomerular Filtration Rate) [...] Procedure Name Priority Date/Time Associated Diagnosis Comments COMPREHENSIVE METABOLIC PANEL Routine 07/06/2024 8:20 AM EST Chronic hypertension LIPID PANEL WITH REFLEX TO DIRECT LDL Routine 07/06/2024 8:20 AM EST Hyperlipidemia, unspecified hyperlipidemia type HM COLONOSCOPY Routine 09/12/2023 from Last 3 Months or Most Recently Relevant to Health Maintenance Results * (ABNORMAL) Lipid panel with reflex to direct LDL (07/06/2024 8:20 AM EST) Cholesterol 213(H) 0 - 200 mg/dL LAB CHEMISTRY METHOD 07/06/2024 9:48 AM EST [facility] Triglycerides 211(H) 0 - 150 mg/dL LAB CHEMISTRY METHOD 07/06/2024 9:48 AM EST [facility] HDL 33(L) >=40 mg/dL LAB CHEMISTRY METHOD 07/06/2024 9:48 AM EST [facility] LDL Calculated 138(H) 0 - 100 mg/dL LAB CHEMISTRY METHOD 07/06/2024 9:48 AM EST [facility] VLDL Cholesterol Fabio 42.2 mg/dL LAB CHEMISTRY METHOD 07/06/2024 9:48 AM EST [facility] Non HDL Chol. (LDL+VLDL) 180(H) <145 mg/dL LAB CHEMISTRY METHOD 07/06/2024 9:48 AM EST [facility] Chol/HDL Ratio 6.5(H) 0.0 - 4.4 LAB CHEMISTRY METHOD 07/06/2024 9:48 AM EST [facility] Blood Venous blood specimen / Unknown Venipuncture / Unknown 07/06/2024 8:20 AM EST 07/06/2024 9:08 AM EST us Darron Burton MD LAB BLOOD ORDERABLES Final Resu lt [facility] [address] [place] [address], [place] [phone] * (ABNORMAL) Comprehensive metabolic panel (07/06/2024 8:20 AM EST) Sodium 136 133 - 145 mmol/L LAB CHEMISTRY METHOD 07/06/2024 9:47 AM [facility] Potassium 3.7 3.5 - 5.5 mmol/L LAB CHEMISTRY METHOD 07/06/2024 9:47 AM [facility] Chloride 103 96 - 110 mmol/L LAB CHEMISTRY METHOD 07/06/2024 9:47 AM [facility] CO2 29 21 - 32 mmol/L LAB CHEMISTRY METHOD 07/06/2024 9:47 AM [facility] Anion Gap 4 3 - 11 LAB CHEMISTRY METHOD 07/06/2024 9:47 AM [facility] Glucose 154(H) 70 - 100 mg/dL LAB CHEMISTRY METHOD 07/06/2024 9:47 AM [facility] BUN 13 5 - 25 mg/dL LAB CHEMISTRY METHOD 07/06/2024 9:47 AM [facility] Creatinine 1.22 0.70 - 1.30 mg/dL LAB CHEMISTRY METHOD 07/06/2024 9:47 AM [facility] eGFR 66 >=60 mL/min/1. 73m2 LAB CHEMISTRY METHOD 07/06/2024 9:47 AM [facility] Comment:Calculation based on the Chronic Kidney Disease Epidemiology Collaboration (CKD-EPI) equation refit without adjustment for race. BUN/Creatinine Ratio 10.7 LAB CHEMISTRY METHOD 07/06/2024 9:47 AM [facility] Calcium 9.4 8.5 - 10.5 mg/dL LAB CHEMISTRY METHOD 07/06/2024 9:47 AM [facility] AST (SGOT) 25 10 - 42 unit/L LAB CHEMISTRY METHOD 07/06/2024 9:47 AM [facility] ALT (SGPT) 47 10 - 60 unit/L LAB CHEMISTRY METHOD 07/06/2024 9:47 AM [facility] Alkaline Phosphatase 74 42 - 121 unit/L LAB CHEMISTRY METHOD 07/06/2024 9:47 AM EST [facility] Total Protein 7.2 6.0 - 8.0 g/dL LAB CHEMISTRY METHOD 07/06/2024 9:47 AM EST [facility] Albumin 3.7 3.2 - 5.0 g/dL LAB CHEMISTRY METHOD 07/06/2024 9:47 AM EST [facility] Total Bilirubin 2.0(H) 0.0 - 1.4 mg/dL LAB CHEMISTRY METHOD 07/06/2024 9:47 AM EST [facility] Blood Venous blood specimen / Unknown Venipuncture / Unknown 07/06/2024 8:20 AM EST 07/06/2024 9:08 AM EST Darron Burton MD LAB BLOOD ORDERABLES Final Resu lt [facility] [address] [place] [address], * Colonoscopy (09/12/2023) Colonoscopy No interpretation , Abstracted Anatomical Region Laterality Modality Other Historical Provider HEALTH MAINTENANCE Final Result from Last 3 Months or Most Recently Relevant to Health Maintenance Insurance [employer] Care Teams Signals Analyst Relationship Specialty Start Date End Date Jihan Reid MD 2 [facility] [address] [facility] Physician Associ D/B/A: [facility] BILL Nieto PCP - General 03/15/21
[2025-02-22 09:52] LABS: Anion Gap 11 (12-20); Blood Urea Nitrogen 20 mg/dL (9-16); Calcium 9.8 mg/dL (8.4-10.2); Carbon Dioxide 28 mmol/L (22-29); Chloride 101 mmol/L (96-108); Estimated Glomerular Filt Rate > 60; Potassium 4.1 mmol/L (3.3-5.1); Sodium 136 mmol/L (135-145)
[2025-02-22 09:57] LABS: Parathyroid Hormone Intact 89.0 pg/mL (8.7-77.1)
[2025-02-22 10:39] LABS: Total Protein Urine Random < 7 mg/dL (<12)
[2025-02-26 13:09] LABS: VITAMIN D (1,25 OH) D3 24 pg/mL; Vit D (1,25-Dihydroxy) Total 24 pg/mL (18-72); Vitamin D (1,25 OH) D2 <8 pg/mL
== END 2025-02-22 08:16 | disposition home or self-care (01) ==
LOC: HO.LAB 08:15
PROVIDERS: Internal Medicine Nephrology; PCP Internal Medicine; Visit Provider Internal Medicine
DX: I12.9 Hypertensive chronic kidney disease with stage 1 through stage 4 chronic kidney disease, or unspecified chronic kidney disease (principal); N18.31 Chronic kidney disease, stage 3a; E83.52 Hypercalcemia; Z01.84 Encounter for antibody response examination
CPT/HCPCS: 36415; 80051; 82306; 82310; 82565; 82570; 82652; 82784; 83970; 84156; 84520; 86334

== ENCOUNTER 2025-02-24 08:02 | Outpatient (AMB) | payer MEDICARE, SELFPAY ==
--- OUTSIDE RECORDS SUMMARY | 2025-02-24 08:10 | XMS_ITS | Clinical Summary ---
Author Organization [facility] Address 100 [facility] [address] [place] [address] Phone Care Team Providers Care Dressmaker Helper Name Role Phone Jihan Ceballos MD Primary Care Provider [phone] Allergies Active Allergy Reactions Criticality Noted Date Comments Vitamin C-Vitamin E-Panthenol Other (see comments) 11/26/2021 Medications aspirin ([facility]) 81 MG EC tablet Take 1 tablet [...] age to complete this topic Insurance Medicaid [facility] Medicaid Care Teams Dressmaker Helper Relationship Specialty Start Date End Date Jihan Ceballos MD 2 [facility] [address] [place], [place] PCP - General Internal Medicine 08/22/21
--- OUTSIDE RECORDS SUMMARY | 2025-02-24 08:10 | XMS_ITS | Clinical Summary ---
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 NSTEMI (non-ST elevated myoc ardial infarction) ([facility] V24, [facility] V28) 06/28/2022 Surgical History Surgery Date Site/Laterality Comments CHOLECYSTECTOMY PROCEDURE: HISTORICAL CHOLECYSTECTOMY COLONOSCOPY PROCEDURE: HISTORICAL COLONOSCOPY Medical History Medical History Date Comments Type 2 diabetes mellitus ( S/HCC V24, [facility] V28) DX:Type 2 diabetes mellitus ([facility]) Essential hypertension DX:Essent ial hypertension Hyperlipidemia [...] LAB CHEMISTRY METHOD 07/06/2024 9:48 AM EST [facility] Triglycerides 211(H) 0 - 150 mg/dL LAB CHEMISTRY METHOD 07/06/2024 9:48 AM EST [facility] HDL 33(L) >=40 mg/dL LAB CHEMISTRY METHOD 07/06/2024 9:48 AM EST [facility] LDL Calculated 138(H) 0 - 100 mg/dL LAB CHEMISTRY METHOD 07/06/2024 9:48 AM EST [facility] VLDL Cholesterol Fabio 42.2 mg/dL LAB CHEMISTRY METHOD 07/06/2024 9:48 AM EST [facility] Non HDL Chol. (LDL+VLDL) 180(H) <145 mg/dL LAB CHEMISTRY METHOD 07/06/2024 9:48 AM EST [facility] Chol/HDL Ratio 6.5(H) 0.0 - 4.4 LAB CHEMISTRY METHOD 07/06/2024 9:48 AM EST [facility] Blood Venous blood specimen / Unknown Venipuncture / Unknown 07/06/2024 8:20 AM EST 07/06/2024 9:08 AM EST us Darorn Burton MD LAB BLOOD ORDERABLES Final Resu lt [facility] [address] [place] [address], [place] [phone] * (ABNORMAL) Comprehensive metabolic panel (07/06/2024 8:20 AM EST) Sodium 136 133 - 145 mmol/L LAB CHEMISTRY METHOD 07/06/2024 9:47 AM [facility] Potassium 3.7 3.5 - 5.5 mmol/L LAB CHEMISTRY METHOD 07/06/2024 9:47 AM [facility] Chloride 103 96 - 110 mmol/L LAB CHEMISTRY METHOD 07/06/2024 9:47 AM [facility] CO2 29 21 - 32 mmol/L LAB CHEMISTRY METHOD 07/06/2024 9:47 AM [facility] Anion Gap 4 3 - 11 LAB CHEMISTRY METHOD 07/06/2024 9:47 AM [facility] Glucose 154(H) 70 - 100 mg/dL LAB CHEMISTRY METHOD 07/06/2024 9:47 AM [facility] BUN 13 5 - 25 mg/dL LAB CHEMISTRY METHOD 07/06/2024 9:47 AM [facility] Creatinine 1.22 0.70 - 1.30 mg/dL LAB CHEMISTRY METHOD 07/06/2024 9:47 AM [facility] eGFR 66 >=60 mL/min/1. 73m2 LAB CHEMISTRY METHOD 07/06/2024 9:47 AM [facility] Comment:Calculation based on the Chronic Kidney Disease Epidemiology Collaboration (CKD-EPI) equation refit without adjustment for race. BUN/Creatinine Ratio 10.7 LAB CHEMISTRY METHOD 07/06/2024 9:47 AM [facility] Calcium 9.4 8.5 - 10.5 mg/dL LAB CHEMISTRY METHOD 07/06/2024 9:47 AM [facility] AST (SGOT) 25 10 - 42 unit/L LAB CHEMISTRY METHOD 07/06/2024 9:47 AM [facility] ALT (SGPT) 47 10 - 60 unit/L LAB CHEMISTRY METHOD 07/06/2024 9:47 AM [facility] Alkaline Phosphatase 74 42 - 121 unit/L LAB CHEMISTRY METHOD 07/06/2024 9:47 AM EST [facility] Total Protein 7.2 6.0 - 8.0 g/dL LAB CHEMISTRY METHOD 07/06/2024 9:47 AM EST [facility] Albumin 3.7 3.2 - 5.0 g/dL LAB CHEMISTRY METHOD 07/06/2024 9:47 AM EST [facility] Total Bilirubin 2.0(H) 0.0 - 1.4 mg/dL LAB CHEMISTRY METHOD 07/06/2024 9:47 AM EST [facility] Blood Venous blood specimen / Unknown Venipuncture / Unknown 07/06/2024 8:20 AM EST 07/06/2024 9:08 AM EST Darron Burton MD LAB BLOOD ORDERABLES Final Resu lt [facility] [address] [place] [address], * Colonoscopy (09/12/2023) Colonoscopy No interpretation , Abstracted Anatomical Region Laterality Modality Other Historical Provider HEALTH MAINTENANCE Final Result from Last 3 Months or Most Recently Relevant to Health Maintenance Insurance [employer] Care Teams Retail Advertising Executive Relationship Specialty Start Date End Date Jihan Reid MD [address] [facility] [address] [facility] D/B/A: [facility] BILL Nieto PCP - General 03/15/21
[2025-02-24 08:19] VITALS: BP 90/56; PULSE 59; RESP 18; TEMP 36.2; O2SAT 94; BMI 29.5
--- NOTE | 2025-02-24 08:19 | A.OFFPC_ITS ---
Vital Signs 02/24/25 08:19 Height 5 ft 4 in Weight 172 lb BMI 29.5 BP 90/56 L Blood Pressure Location Lt brachial Position Sitting Respiration 18 Pulse 59 Pulse Source Pulse Oximeter Temp 97.1 F Temp Source Temporal Artery Scan Pulse Oximetry (%) 94 Oxygen Delivery Method Room Air Intake Visit Reasons: 4mth f/u Flexible Machining System Machinist Required: No Accompanied by: Self / Same As Patient Allergies vitamin c lotion Allergy (Intermediate, Uncoded 02/24/25 08:42) rash Medication List - Last Reconciled 02/24/25 by Jihan Reid MD aspirin 81 mg PO DAILY atorvastatin 80 mg PO DAILY 90 days cholecalciferol (vitamin D3) 25 mcg PO DAILY 90 days clopidogrel 75 mg PO DAILY evolocumab (Repatha SureClick) 140 mg subcut Q2W 30 days ezetimibe 10 mg PO DAILY 90 days isosorbide mononitrate ER 60 mg PO DAILY losartan-hydrochlorothiazide 100-12.5 mg 1 tab PO DAILY 90 days metformin 500 mg (1/2 x 1,000 mg) PO BID 90 days metoprolol tartrate 12.5 mg PO BID pioglitazone 30 mg PO DAILY 90 days simethicone 180 mg PO BID spironolactone 25 mg PO DAILY Tobacco use date assessed: 02/24/25 Fall risk assessment: No Falls in past year Last assessed Fall Risk: 02/24/25 Dental Screening Dental Screen Date: 02/24/25 Did you have a dental visit in the last 12 months?: No Did you have a dental problem in the last 6 months where you did not have access to dental care?: No Was dental information given to patient?: No HPI HPI Comments History of Present Illness Details The patient is a 64-year-old male presenting for management of multiple chronic conditions including erythrocytosis, hyperparathyroidism, diabetes mellitus, hypertension, and hyperlipidemia. A1c within goal been 6.7 % today. The patient has a history of erythrocytosis secondary to elevated hemoglobin levels, which is monitored by a forest fire control officer-oncologist. He denies any history of smoking or alcohol consumption. The patient also has hyperparathyroidism, with elevated parathyroid hormone levels noted. A repeat laboratory test is planned in four months to monitor the condition. He has a history of myocardial infarction in 2021, for which stents were placed. He is currently on multiple medications including atorvastatin, Plavix, and metformin for diabetes management. The patient reports no chest pain or dyspnea currently. His blood pressure was noted to be low, leading to a change in his antihypertensive regimen by removing hydrochlorothiazide from his medication list. He is scheduled for follow-up laboratory tests in four months, including cholesterol and vitamin D levels. [facility], [facility] Medical History (Updated 02/24/25 @ 11:10 by Jihan Reid MD) Elevated hemoglobin Daytime sleepiness Hypovitaminosis D Familial hypercholesterolemia BPPV (benign paroxysmal positional vertigo) NAFLD (nonalcoholic fatty liver disease) Essential hypertension GERD (gastroesophageal reflux disease) Hyperbilirubinemia Diabetes mellitus Surgical History History of heart artery stent History of colonoscopy History of cardiac catheterization Family History Father CAD (coronary artery disease) Mother Diabetes CVD (cardiovascular disease) Hypertension Family/Other Diabetes CAD (coronary artery disease) Other No family history of cancer Social History Household Members: Family Housing: House Are you a primary patient care coordinator to a significant other at home: No Do you presently have visiting nurse or other home services: No Alcohol intake: never Patient Tobacco Use Status: Never used Tobacco e-Cigarette/Vaping Use: Never Used Second Hand Smoke Exposure: No service: No Current occupational status: employed and unemployed 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 1. Little interest or pleasure in doing things: not at all 2. Feeling down, depressed, or hopeless: not at all 3. Trouble falling or staying asleep, or sleeping too much: not at all 4. Feeling tired or having little energy: not at all 5. Poor appetite or overeating: not at all 6. Feeling bad about yourself - or that you are a failure or have let yourself or your family down: not at all 7. Trouble concentrating on things, such as reading the newspaper or watching television: not at all 8. Moving or speaking so slowly that other people could have noticed. Or the opposite - being so fidgety or restless that you have been moving around a lot more than usual: not at all 9. Thoughts that you would be better off or of hurting yourself in some way: not at all Total score: 0 Depression Screening Interpretation: Negative Depression Screening Done: Yes 71236 - PHQ-9 Billing: Yes Source: Developed by Drs. Brendan Duncan, Trish Holloway, Juan Carlos Gardner and colleagues, with an educational ramona from [employer]. Thrive Questionnaire Date Thrive assessed: 02/24/25 AUDIT C Alcohol Use Questionnaire (AUDIT-C) 1. How often do you have a drink containing alcohol?: Never Total Score: 0 Score Reviewed/Action Taken: No LULU-7 AMB Questionnaire LULU-7 Date LULU - 7 assessed: 02/24/25 Source: Developed by Drs. Brendan Duncan, Trish Holloway, Juan Carlos Gardner and colleagues, with an educational ramona from [employer]. Review of Systems Const All systems reviewed & are unremarkable except as noted in HPI and below Card Denies chest pain at rest, Denies chest pain with activity, Denies edema, Denies irregular heart rhythm, Denies claudication, Denies dyspnea, Denies dyspnea on exertion, Denies orthopnea, Denies paroxysmal nocturnal dyspnea and Denies slow heart rate Resp Denies cough, Denies dyspnea and Denies dyspnea on exertion GI Denies abdominal pain, Denies change in bowel habits, Denies excessive flatus, Denies nausea and Denies vomiting Denies urinary hesitancy, Denies urinary incontinence and Denies urinary urgency Musc Denies abnormal gait, Denies atrophy, Denies deformity and Denies limited range of motion Skin/Breast Denies bleeding lesions, Denies changing lesions and Denies rash Neuro Denies abnormal gait and Denies lack of coordination Physical exam (Primary Care) Vital Signs: Last Vital Signs Temp 97.1 F 02/24/25 08:19 Pulse 59 02/24/25 08:19 Resp 18 02/24/25 08:19 BP 90/56 L 02/24/25 08:19 Pulse Ox 94 02/24/25 08:19 Oxygen Delivery Method Room Air 02/24/25 08:19 BMI result Body Mass Index 29.5 Tobacco/Smoking Status: Tobacco use Status Tobacco use date assessed 02/24/25 02/24/25 08:25 Patient Tobacco Use Status Never used Tobacco 02/24/25 08:25 e-Cigarette/Vaping Use Never Used 02/24/25 08:25 PHQ-9: PHQ-9 Score PHQ-9: Total score 0 02/24/25 08:57 Depression Screening Interpretation: Negative Thrive Assessment: Date of Thrive Assessment Date Thrive assessed 02/24/25 02/24/25 08:25 Resp Effort & Inspection: normal respiratory effort Auscultation: clear to auscultation bilaterally Cardio Jugular venous distension: no JVD Rate: regular rate Rhythm: regular rhythm Heart sounds: S1 normal heart sound present and S2 normal heart sound present Extrem General: Yes full ROM Results AMB Hemoglobin A1c AMB Hemoglobin A1c 6.7 % Last Edit by Jailyn Montgomery CMA on 02/24/25 08 :58 Results Reviewed Results Reviewed: Laboratory Last Values Hgb A1c (Clinic) 6.7 % (4.0-6.0) H 02/24/25 08:57 Coding Level of Care Code Est Pt Level 4 (16827) Complex EM visit Add On G2211 Diagnoses Essential hypertension I10 Hyperlipidemia LDL goal <70 E78.5 Type 2 diabetes mellitus with microalbuminuria, without long-term current use of insulin E11.29; R80.9 Diabetes mellitus type: type 2 Diabetes mellitus shelter insulin use: without terminal system operator use Diabetes mellitus complication status: with kidney complications Diabetes mellitus complication detail: with microalbuminuria Hyperparathyroidism E21.3 Erythrocytosis D75.1 Additional Codes PHQ-9 - 75287 - PHQ-9 Billing: Yes ([id number]) Time Spent (min) 24 Assessment & Plan Assessment & Plan (1) Essential hypertension: Code(s): I10 - Essential (primary) hypertension Category: Medical (2) Hyperlipidemia LDL goal <70: Code(s): E78.5 - Hyperlipidemia, unspecified Category: Medical (3) Diabetes mellitus: Code(s): E11.9 - Type 2 diabetes mellitus without complications Category: Medical Qualifiers: Diabetes mellitus type: type 2 Diabetes mellitus terminal system operator insulin use: without terminal system operator use Diabetes mellitus complication status: with kidney complications Diabetes mellitus complication detail: with microalbuminuria Qualified Code(s): E11.29 - Type 2 diabetes mellitus with other diabetic kidney complication; R80.9 - Proteinuria, unspecified (4) Hyperparathyroidism: Code(s): E21.3 - Hyperparathyroidism, unspecified Category: Medical (5) Erythrocytosis: Code(s): D75.1 - Secondary polycythemia Category: Medical Plan Plan Patient was informed and verbally consented to the use of an ambient scribe for clinic note documentation during this visit. 1. Secondary polycythemia D75.1 The patient is under the care of a forest fire control officer-oncologist for erythrocytosis secondary to elevated hemoglobin levels. Continued monitoring and follow-up with the specialist are advised. 2. Hyperparathyroidism, unspecified E21.3 HCC 23 The patient has hyperparathyroidism with elevated parathyroid hormone levels. A repeat laboratory test is planned in four months to reassess the condition. 3. Type 2 diabetes mellitus without complications E11.9 HCC 19 The patient is on metformin for diabetes management. A follow-up HbA1c test is planned to monitor glycemic control. 4. Essential (primary) hypertension I10 The patient's blood pressure was noted to be low, leading to a change in medication by removing hydrochlorothiazide. Losartan will be continued without hydrochlorothiazide. 5. Hyperlipidemia, unspecified E78.5 The patient is on atorvastatin for hyperlipidemia management. A follow-up lipid panel is planned in four months. Orders: Orders Lipid Panel 4 Months E78.5 - Hyperlipidemia, unspecified Microalbumin, Random (w Creat) 4 Months R80.9 - Proteinuria, unspecified Vitamin B12 and Folate 4 Months E53.8 - Deficiency of other specified B group vitamins Lipoprotein A 4 Months E78.5 - Hyperlipidemia, unspecified Lipoprotein Asso Phospholip A2 4 Months E78.5 - Hyperlipidemia, unspecified Parathyroid Hormone Intact 4 Months E83.52 - Hypercalcemia AMB Hemoglobin A1c Today Z13.9 - Encounter for screening, unspecified Vitamin D 25-OH Total 4 Months E55.9 - Vitamin D deficiency, unspecified Comprehensive Lyn[place]. Panel Fast 4 Months I21.4 - Non-ST elevation (NSTEMI) myocardial infarction Apolipoprotein B 4 Months E78.5 - Hyperlipidemia, unspecified Phosphorus 4 Months E83.52 - Hypercalcemia Calcium, Ionized 4 Months E83.52 - Hypercalcemia Calcium, Random Urine 4 Months E83.52 - Hypercalcemia Medications: New losartan 100 mg PO DAILY 90 tabs 1RF 90 days Discontinued losartan-hydrochlorothiazide 100-12.5 mg Discontinued Reason: Patient Completed Course 1 tab PO DAILY 90 days 90 tabs 1RF
== END 2025-02-24 08:52 | disposition home or self-care (01) ==
LOC: HO.HMCH 08:02
PROVIDERS: PCP Internal Medicine; Visit Provider Internal Medicine
DX: I10 Essential (primary) hypertension (principal); E78.5 Hyperlipidemia, unspecified; E11.29 Type 2 diabetes mellitus with other diabetic kidney complication; R80.9 Proteinuria, unspecified; E21.3 Hyperparathyroidism, unspecified; D75.1 Secondary polycythemia; Z13.9 Encounter for screening, unspecified

== ENCOUNTER → 2025-02-24 08:02 | Outpatient (BNVA) | payer MEDICARE, SELFPAY | PROVIDERS: PCP Internal Medicine; Visit Provider Internal Medicine | DX: I10 Essential (primary) hypertension (principal); E11.9 Type 2 diabetes mellitus without complications; E78.5 Hyperlipidemia, unspecified; E11.29 Type 2 diabetes mellitus with other diabetic kidney complication; D75.1 Secondary polycythemia; R80.9 Proteinuria, unspecified; E53.8 Deficiency of other specified B group vitamins; E83.52 Hypercalcemia; I21.4 Non-ST elevation (NSTEMI) myocardial infarction | CPT/HCPCS: 83036; 96127; 99212 ==

== ENCOUNTER 2025-03-04 09:12 | Outpatient (AMB) | payer MEDICARE, SELFPAY ==
--- NOTE | 2025-03-04 09:28 | HO.NEPHOV ---
Vital Signs 03/04/25 09:30 Height 5 ft 4 in Weight 174 lb BMI 29.9 BP 110/72 Blood Pressure Location Lt brachial Position Sitting Pulse 58 Pulse Source Pulse Oximeter Pulse Oximetry (%) 96 Oxygen Delivery Method Room Air Intake Visit Reasons: 6 MO FU-Conf Party Plan Demonstrator Required: Yes Party Plan Demonstrator Language: Psych Rn Services: Party Plan Demonstrator Present Party Plan Demonstrator Name: Galo [id number] Information Interpreted: clinical only Accompanied by: Self / Same As Patient Allergies vitamin c lotion Allergy (Intermediate, Uncoded 02/24/25 08:42) rash HPI Comments Details: Walt earl is a 63-year-old male with diabetes mellitus type 2, hypertension and hyperlipidemia. His hemoglobin A1c has been within goal. His fasting blood sugars are good. His blood pressure has been stable . He has no orthostatic symptoms. He is compliant with low-sodium diet and medications. He avoids nonsteroidal anti-inflammatories. He denies any chest pain , shortness of breath, paroxysmal nocturnal dyspnea, orthopnea, pedal edema or urinary symptoms. PENDING SALE TO [facility] Medical History Elevated hemoglobin Daytime sleepiness Hypovitaminosis D Familial hypercholesterolemia BPPV (benign paroxysmal positional vertigo) NAFLD (nonalcoholic fatty liver disease) Essential hypertension GERD (gastroesophageal reflux disease) Hyperbilirubinemia Diabetes mellitus Surgical History History of heart artery stent History of colonoscopy History of cardiac catheterization Family History Father CAD (coronary artery disease) Mother Diabetes CVD (cardiovascular disease) Hypertension Family/Other Diabetes CAD (coronary artery disease) Other No family history of cancer Social History Household Members: Family Housing: House Are you a primary personal care service provider to a significant other at home: No Do you presently have visiting nurse or other home services: No Alcohol intake: never Patient Tobacco Use Status: Never used Tobacco e-Cigarette/Vaping Use: Never Used Second Hand Smoke Exposure: No service: No Current occupational status: employed and unemployed 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 Current occupational exposures/hazards: No Cognitive needs: No Hearing needs: No Vision needs: No Review of Systems Const All systems reviewed & are unremarkable except as noted in HPI and below Physical Exam Vital Signs: Last Vital Signs Pulse 58 03/04/25 09:30 BP 110/72 03/04/25 09:30 Pulse Ox 96 03/04/25 09:30 Oxygen Delivery Method Room Air 03/04/25 09:30 BMI result Body Mass Index 29.9 Const General: comfortable and no acute distress Orientation/consciousness: patient oriented x3 HEENT Head: Yes normocephalic Mouth: Normal oral and palatal mucosa present Eyes EOM: EOMs intact bilaterally Neck Neck: Yes supple Resp Auscultation: clear to auscultation bilaterally Cardio Jugular venous distension: no JVD Rate: regular rate GI Palpation (GI): Soft to palpation Auscultation: normal bowel sounds General: Yes no CVA tenderness Back/Spine/Pelvis Back: no CVA tenderness Skin General skin exam: no rashes or lesions noted Neuro General: patient oriented x3 and moves all extremities Extrem General: Yes no pedal edema Results Reviewed Nephrology Results: Hgb, (14.0-18.0) 15.1 g/dl 11/08/24 WBC, (4.8-10.8) 8.0 X10*3/uL 11/08/24 Plt Count, (160-400) 207 X10*3/uL 11/08/24 Sodium, (135-145) 136 mmol/L 02/22/25 Potassium, (3.3-5.1) 4.1 mmol/L 02/22/25 Chloride, (96-108) 101 mmol/L 02/22/25 Carbon Dioxide, (22-29) 28 mmol/L 02/22/25 BUN, (9-16) 20 mg/dL H 02/22/25 Creatinine, (0.5-1.4) 1.08 mg/dL 02/22/25 Calcium, (8.4-10.2) 9.8 mg/dL 02/22/25 PTH Intact, (8.7-77.1) 89.0 pg/mL H 02/22/25 Urine Protein, (Neg-Trace) Negative mg/dL 08/08/22 Urine Creatinine 193.86 mg/dL 02/22/25 Protein/Creatinin Ratio TNP 02/22/25 Assessment & Plan Assessment & Plan (1) Essential hypertension: Code(s): I10 - Essential (primary) hypertension Category: Medical (2) CKD stage 3a, GFR 45-59 ml/min: Code(s): N18.31 - Chronic kidney disease, stage 3a Category: Medical Plan Walt has longstanding hypertension. His blood pressure is at goal. He has diabetes which is well controlled. He is tolerating angiotensin receptor deepti. His serum potassium and renal functions are normal. He does not have any proteinuria or retinopathy. He has no orthostatic symptoms. He maintains good hydration and keep up with the low-sodium diet. I did not make any medication changes today. Follow-up lab work ordered. Answered all questions. Follow-up appointment given Orders: Orders Electrolytes 7 Months I10 - Essential (primary) hypertension, N18.31 - Chronic kidney disease, stage 3a Creatinine 7 Months I10 - Essential (primary) hypertension, N18.31 - Chronic kidney disease, stage 3a Calcium 7 Months I10 - Essential (primary) hypertension, N18.31 - Chronic kidney disease, stage 3a Blood Urea Nitrogen 7 Months I10 - Essential (primary) hypertension, N18.31 - Chronic kidney disease, stage 3a Protein Creatinine Ratio, Ur 7 Months I10 - Essential (primary) hypertension, N18.31 - Chronic kidney disease, stage 3a Coding Level of Care Code Est Pt Level 4 (26829) Diagnoses Essential hypertension I10 CKD stage 3a, GFR 45-59 ml/min N18.31
[2025-03-04 09:30] VITALS: BP 110/72; PULSE 58; O2SAT 96; BMI 29.9
--- OUTSIDE RECORDS SUMMARY | 2025-03-04 10:08 | XMS_ITS | Clinical Summary ---
Author Organization [address] [place] [address] Address [address] [place] [address] Phone Care Team Providers Care Mantel Craftsman Name Role Phone Jihan Reid MD Primary Care Provider [phone] Allergies No known active allergies Medications atorvastatin [...] 24 hr tabletIndication s:Coronary artery disease of [place] artery of [place]well heart with stable angina pectoris (CMS/HCC V24) [...] artery disease of n ative artery of cantwell heart with stable angina pectoris ([facility] V24) 06/28/2022 Overview (06/30/2024): Last [...] 53. NSTEMI (non-ST elevated myoc ardial infarction) ([facility] V24, [facility] V28) 06/28/2022 Surgical History Surgery Date Site/Laterality Comments CHOLECYSTECTOMY PROCEDURE: HISTORICAL CHOLECYSTECTOMY COLONOSCOPY PROCEDURE: HISTORICAL COLONOSCOPY Medical History Medical History Date Comments Type 2 diabetes mellitus ( S/HCC V24, [facility] V28) DX:Type 2 diabetes mellitus ([facility]) Essential hypertension DX:Essent ial hypertension [...] LAB CHEMISTRY METHOD 07/06/2024 9:48 AM EST [facility] Triglycerides 211(H) 0 - 150 mg/dL LAB CHEMISTRY METHOD 07/06/2024 9:48 AM EST [facility] HDL 33(L) >=40 mg/dL LAB CHEMISTRY METHOD 07/06/2024 9:48 AM EST [facility] LDL Calculated 138(H) 0 - 100 mg/dL LAB CHEMISTRY METHOD 07/06/2024 9:48 AM EST [facility] VLDL Cholesterol Fabio 42.2 mg/dL LAB CHEMISTRY METHOD 07/06/2024 9:48 AM EST [facility] Non HDL Chol. (LDL+VLDL) 180(H) <145 mg/dL LAB CHEMISTRY METHOD 07/06/2024 9:48 AM EST [facility] Chol/HDL Ratio 6.5(H) 0.0 - 4.4 LAB CHEMISTRY METHOD 07/06/2024 9:48 AM EST [facility] Blood Venous blood specimen / Unknown Venipuncture / Unknown 07/06/2024 8:20 AM EST 07/06/2024 9:08 AM EST us Darron Burton MD LAB BLOOD ORDERABLES Final Resu lt [facility] [address] [place] [address], [place] [phone] * (ABNORMAL) Comprehensive metabolic panel (07/06/2024 8:20 [...] LAB CHEMISTRY METHOD 07/06/2024 9:47 AM EST [facility] Total Protein 7.2 6.0 - 8.0 g/dL LAB CHEMISTRY METHOD 07/06/2024 9:47 AM EST [facility] Albumin 3.7 3.2 - 5.0 g/dL LAB CHEMISTRY METHOD 07/06/2024 9:47 AM EST [facility] Total Bilirubin 2.0(H) 0.0 - 1.4 mg/dL LAB CHEMISTRY METHOD 07/06/2024 9:47 AM EST [facility] Blood Venous blood specimen / Unknown Venipuncture / Unknown 07/06/2024 8:20 AM EST 07/06/2024 9:08 AM EST Darron Burton MD LAB BLOOD ORDERABLES Final Resu lt [facility] [address] [place] [address], * Colonoscopy (09/12/2023) Colonoscopy No interpretation , Abstracted Anatomical Region Laterality Modality Other Historical Provider HEALTH MAINTENANCE Final Result from Last 3 Months or Most Recently Relevant to Health Maintenance Insurance [employer] Care Teams Mantel Craftsman Relationship Specialty Start Date End Date Jihan Reid MD [address] [facility] [address] [facility] D/B/A: Emilia Cedillo In Internal Medicine BILL Nieto PCP - General 03/15/21
--- OUTSIDE RECORDS SUMMARY | 2025-03-04 10:08 | XMS_ITS | Clinical Summary ---
Author Organization [facility] Address [address] [facility] [address] [place] [address] Phone Care Team Providers Care Social Secretary Name Role Phone Jihan Ceballos MD Primary Care Provider Allergies Active Allergy Reactions Criticality Noted Date Comments Vitamin C-Vitamin E-Panthenol Other (see comments) 11/26/2021 Medications aspirin ([facility]) 81 MG EC tablet Take [...] age to complete this topic Insurance Medicaid [facility] Medicaid Care Teams Social Secretary Relationship Specialty Start Date End Date Jihan Ceballos MD [address] [facility] [address] [place], [place] PCP - General Internal Medicine 08/22/21
== END 2025-03-04 09:41 | disposition home or self-care (01) ==
LOC: HO.HKA 09:12
PROVIDERS: PCP Internal Medicine; Visit Provider Internal Medicine Nephrology
DX: I10 Essential (primary) hypertension (principal); N18.31 Chronic kidney disease, stage 3a
CPT/HCPCS: 99214

== ENCOUNTER → 2025-03-04 09:12 | Outpatient (BNVA) | payer MEDICARE, SELFPAY | PROVIDERS: PCP Internal Medicine; Visit Provider Internal Medicine Nephrology | DX: N18.31 Chronic kidney disease, stage 3a (principal); I10 Essential (primary) hypertension; E11.9 Type 2 diabetes mellitus without complications | CPT/HCPCS: 99212 ==